=== PATIENT | female | born 1960 | race Caucasian/White ===

== ENCOUNTER 2018-07-08 17:38 | Emergency (ER) | payer OTHER ==
--- OUTSIDE RECORDS SUMMARY | 2018-07-08 17:40 | XMS REPORT ---
:1960 Author Organization eClinicalWorks Care Team Providers Name Role Phone Satish San Provider Role Unavailable Allergies No Known Allergies Problems Problem Type Condition Code Onset Dates Condition Status Problem Swelling R60.9 Active Problem Muscle tension headache G44.209 Active Problem Chronic obstructive pulmonary J44.9 Active disease (COPD) Problem Allergic rhinitis J30.9 Active Problem Osteoporosis M81.0 Active Problem Current chronic use of systemic Z79.52 Active steroids Problem Tobacco abuse counseling Z71.6 Active Problem Gastro-esophageal reflux disease K21.9 Active without esophagitis Problem Attention deficit disorder F90.9 Active Problem Hepatitis C B19.20 Active Assessment Unspecified viral hepatitis C with 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 Assessment Attention deficit disorder F90.9 Active Assessment Tobacco abuse counseling Z71.6 Active Problem Major depressive disorder, single F32.9 Active episode Assessment Rash and nonspecific skin eruption R21 Active Problem 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 Assessment Current chronic use of systemic Z79.52 Active steroids Problem Unspecified viral hepatitis C with 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 Medications Medication Code Code Instructions Start End Status Dosage System Date Date Amphetamine-Dex [facility] [place] 2] 72347362468 10 MG Orally Active 1 tablet in troamphetamine Once a day the morning and 1 tab at noon HydrOXYzine HCl [facility] [place]NOTE 2] 59290951598 50 MG Orally Active 1 tablet as every 6 hrs needed Permethrin [facility] [place] 2] 85997980298 5 % Externally Sept Oct Active 1 application Once a day , to affected 2017 2017 area Clonazepam [facility] [place]NOTE 2] [address]-47 1 MG Orally Active 1 tablet BID prn Seroquel [facility] [place]NOTE 2] 90913004160 25 MG Orally Active 1 tablet in the morning, 2 tablets at bedtime PredniSONE [facility] [place]NOTE 2] 68657001823 10 MG Orally Active 1 tablet Once a day Duloxetine HCl [facility] [place]NOTE 2] [address]-27 60 MG Orally Active 1 capsule Once a day BusPIRone HCl [facility] [place]NOTE 2] 44738472465 10 MG Orally Active 1 tablet Twice a day Fluocinonide [facility] [place] 2] 95809069451 0.05 % Active as directed Externally Nexium [facility] [place]NOTE 2] 85586567624 20 MG Orally Active 1 capsule Once a day Proventil HFA [facility] [place]NOTE 2] 26618106235 108 (90 Base) Active 2 puffs as MCG/ACT needed Inhalation every 6 hrs ibuprofen ND 83570703298 Oral Active 1 tab HydrALAZINE HCl [facility] [place]NOTE 2] 84109599118 50 MG Orally Sept Active 1 tablet with Three times a 24, food 2017 Restasis [facility] [place]NOTE 2] 26502063944 0.05 % Active 1 drop into Ophthalmic affected eye Twice a day Klonopin [facility] [place] 2] 12313691116 1 MG Orally Active 1 tablet Once a day Gabapentin [facility] [place]NOTE 2] 58012081861 300 MG Orally Active 1 capsule Three times a before day bedtime Oxycodone HCl [facility] [place]NOTE 2] 31880746383 10 MG Orally Active 1 tablet as every 6 hrs needed Tizanidine HCl [facility] [place]NOTE 2] 14447896833 4 MG Orally Active 1 tablet as once a day; needed PRN Results No Known Results Summary Purpose eClinicalWorks Submission
[2018-07-08] MEDS ORDERED: ACETAMINOPHEN 500 MG TAB ONE (18:45)
[2018-07-08] MEDS ORDERED: IBUPROFEN 200 MG TAB PO ONE (18:45)
[2018-07-08] MEDS ORDERED: IBUPROFEN 400 MG TAB ONE (18:45)
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
[2018-07-08] MEDS ORDERED: CLINDAMYCIN 900MG/D5W 900 MG/50 ML IVPB IV ONE (19:18)
[2018-07-08] MEDS ORDERED: LIDOCAINE 1% 20 ML MDV ONE (19:18)
[2018-07-08] MEDS ORDERED: CLINDAMYCIN IV 150 MG/ML (4 mL) VIAL ONE (19:50)
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
== END 2018-07-08 23:18 | disposition short-term general hospital (02) ==
LOC: ER 17:38
PROC: 0PSVXZZ Reposition Left Finger Phalanx, External Approach (ICD-10-PCS; principal; 2018-07-08)
DX: S62.617B Displaced fracture of proximal phalanx of left little finger, initial encounter for open fracture (principal); Y09 Assault by unspecified means; F41.9 Anxiety disorder, unspecified; F17.210 Nicotine dependence, cigarettes, uncomplicated
CPT/HCPCS: 90471; 96372; 99285; S0077

== ENCOUNTER 2019-02-18 20:36 | Emergency (ER) | payer OTHER ==
--- OUTSIDE RECORDS SUMMARY | 2019-02-18 20:38 | XMS REPORT ---
[...] End Status Dosage System Date Date Amphetamine-Dex [facility] 86404239551 10 MG Orally Active 1 tablet in troamphetamine Once a day the morning and 1 tab at noon HydrOXYzine HCl [facility] 37692110112 50 MG Orally Active 1 tablet as every 6 hrs needed Permethrin [facility] 13801593772 5 % Externally Sept Oct Active 1 application Once a day , to affected 2017 2017 area Clonazepam [facility] [address]-58 1 MG Orally Active 1 tablet BID prn Seroquel [facility] 51533909711 25 MG Orally Active 1 tablet in the morning, 2 tablets at bedtime PredniSONE [facility] 24241303991 10 MG Orally Active 1 tablet Once a day Duloxetine HCl [facility] [address]-43 60 MG Orally Active 1 capsule Once a day BusPIRone HCl [facility] 64815695219 10 MG Orally Active 1 tablet Twice a day Fluocinonide [facility] 38918268601 0.05 % Active as directed Externally Nexium [facility] 43545684373 20 MG Orally Active 1 capsule Once a day Proventil HFA [facility] 32864034485 108 (90 Base) Active 2 puffs as MCG/ACT needed Inhalation every 6 hrs ibuprofen ND 09335304138 Oral Active 1 tab HydrALAZINE HCl [facility] 90624472424 50 MG Orally Sept Active 1 tablet with Three times a 24, food 2017 Restasis [facility] 69349479363 0.05 % Active 1 drop into Ophthalmic affected eye Twice a day Klonopin [facility] 37720447510 1 MG Orally Active 1 tablet Once a day Gabapentin [facility] 20934631043 300 MG Orally Active 1 capsule Three times a before day bedtime Oxycodone HCl [facility] 40577876871 10 MG Orally Active 1 tablet as every 6 hrs needed Tizanidine HCl [facility] 05528547389 4 MG Orally Active 1 tablet as once a day; needed PRN Results No Known Results Summary Purpose eClinicalWorks Submission
--- OUTSIDE RECORDS SUMMARY | 2019-02-18 20:39 | XMS REPORT | Encounter Summary ---
:1960 Author Reason for Visit Psychiatric Follow Up Instructions 1. Moderate recurrent major depression buspirone 15 mg tablet quetiapine 50 mg tablet 2. Panic disorder with agoraphobia clonazepam 1 mg tablet 3. Attention deficit hyperactivity disorder Discussion Note Advised to call if any problems or issues. Patient educational handouts: No information available. Plan of Care Patient Instructions Continue current treatment. RTC 3-months or sooner if necessary. Increase Seroquel to 50mg BID. Reminders Provider Appointments Est on or around [facility] 04/07/2019 Ozzy Baird MD Lab None recorded. Referral None recorded. Procedures None recorded. Surgeries None recorded. Imaging None recorded. Medications Name Start Date acetaminophen 300 mg-codeine 30 mg tablet albuterol sulfate 2.5 mg/3 mL (0.083 %) solution for nebulization Inhale 3 mL 3 times a day by nebulization route. amlodipine 5 mg tablet azithromycin 500 mg tablet buspirone 15 mg tablet Take 1 tablet 3 times a day by oral route. clindamycin HCl 300 mg capsule clobetasol 0.05 % topical cream clonazepam 1 mg tablet TAKE 1 TABLET BY MOUTH THREE TIMES DAILY NEEDED FOR ANXIETY Combivent Respimat 20 mcg-100 mcg/actuation solution for inhalation cyclobenzaprine 10 mg tablet dextroamphetamine-amphetamine 20 mg tablet Take 1 tablet(s) twice a day by oral route. doxycycline monohydrate 50 mg capsule Flucelvax Quad 4591-5122 60 mcg (15 mcg x 4)/0.5 mL intramuscular susp fluocinonide 0.05 % topical cream gabapentin 300 mg capsule Take 1 capsule every day by oral route for 30 days. GaviLyte-G 236 gram-22.74 gram-6.74 gram-5.86 gram oral solution hydrocodone 5 mg-acetaminophen 325 mg tablet hydrocortisone 1 % topical cream hydroxyzine HCl 25 mg tablet Take 1 tablet 3 times a day by oral route. ibuprofen 800 mg tablet Invega 3 mg tablet,extended release ivermectin 3 mg tablet Take 5 tablets every 72 hours by oral route. ketorolac 10 mg tablet lamotrigine 25 mg tablet lidocaine-prilocaine 2.5 %-2.5 % topical cream metoprolol succinate ER 25 mg tablet,extended release 24 hr metronidazole 500 mg tablet mupirocin 2 % topical ointment Nexium 20 mg capsule,delayed release Take 1 capsule every day by oral route for 30 days. nystatin 100,000 unit/gram topical cream pantoprazole 40 mg tablet,delayed release prednisone 10 mg tablet ProAir HFA 90 mcg/actuation aerosol inhaler quetiapine 100 mg tablet quetiapine 25 mg tablet 1 po qam 2 po qhs quetiapine 50 mg tablet Take 1 tablet twice a day by oral route. sertraline 100 mg tablet Take 1 tablet every day by oral route in the morning. sertraline 50 mg tablet sulfamethoxazole 800 mg-trimethoprim 160 mg tablet Symbicort 80 mcg-4.5 mcg/actuation HFA aerosol inhaler terbinafine HCl 250 mg tablet Medications Administered None recorded. Vitals None recorded. Results Lab Results None recorded. Allergies Code Code System Name Reaction Severity Status Onset 9230 RxNorm Reglan Other Severe Active Problems Name Status Onset Date Source Crusted Scabies Active 03/14/2018 Chronic Obstructive Lung Disease Active 03/14/2018 Moderate Recurrent Major Depression Active Panic Disorder with Agoraphobia Active Attention Deficit Hyperactivity Disorder Active Procedures None recorded. Vaccine List None recorded. Social History Tobacco Smoking Status Former Smoker Past Encounters 01/05/2019 Moderate Recurrent Major Depression; Panic Disorder with Agoraphobia; Attention Deficit Hyperactivity Disorder Yovany Baird MD: [address] [address], Ph. [phone] History of Present Illness Psych Medication Management Reported By: Patient HPI: Medications: taking medications as directed, no side effects from medication. General overall feeling: feeling as well as can be expected Psychiatric General Follow-Up Reported By: Patient HPI: Context: relationship stress, poor family dynamics Associated Symptoms: Mood: no sadness. Anxiety: no generalized worry. Sleep: no insomnia. Appetite: no change Prior Treatment and Review:: Medication Compliance: greater than 90% Note: <p>Here for routine med. check. Coming from [place]. Went there to see her mother who fell. Reports doing okay. Still living in [place]. Daughter lives with her family and grandson is doing good. Daughter is "at a standstill." Compliant with meds but weaned self off Zoloft. No AE. Sleep fair, appetite okay. E/C fair. Mood has been okay. No new health issues. Home life remains unchanged. Denies ETOH/drugs. No new legal issues.</p> Review of Systems None recorded. Physical Exam Mental Status Exam Reported By: Patient Mental Status Exam: Appearance: well-groomed, clean. Behavior: eye contact, cooperative. Speech: clear. Perception: no hallucinations. Cognition: alert, oriented to situation, oriented to time, oriented to place, oriented to person, memory intact. Intelligence: average. Memory: remote, recent. Mood: euthymic. Affect: congruent to thought content. Insight: intact. Judgment: intact. Thought Processes: intact. Thought Content: unremarkable
--- OUTSIDE RECORDS SUMMARY | 2019-02-18 20:39 | XMS REPORT ---
:1960 [facility] Address [address] [place] [address] Care Team Providers Name Role Phone KATYA ALTAMIRANO Unavailable Unavailable Problems This patient has no known problems. Allergies, Adverse Reactions, Alerts This patient has no known allergies or adverse reactions. Medications This patient has no known medications. Results Test Description Test Time Test Comments Text Results Atomic Results Result Comments MAYRA GRAY, 3 2018-08-03 Reason for FINAL REPORT VIEWS, LEFT 19:03:00 exam:->eval TECHNIQUE: Three views of the left post-op frx w/ hand. INDICATION: eval post-op frx w/ pin pin. COMPARISON: Radiograph from 07/09/2018. FINDINGS/IMPRESSION:Percutaneous pins in the proximal portion of the proximal phalanx of the small finger with slight apex palmar angulation. No significant callus formation. Mild osteophytosis of the carpometacarpal joint of the thumb, consistent with moderate degenerative change. Signed: Enoc Nunez MDReport Verified Date/Time: 08/03/2018 19:03:56 Reading Location: [facility] C013Y CT Body Reading Room AAC IN 2018-07-17 Reason for PROCEDURE PERFORMED IN O.R. - PLEASE OR/30 MINUTE 18:30:00 exam:->ORIF Left REFER TO THE INTRAOPERATIVE REPORT. INCREMENTS little finger ESIUM 2018-07-10 07:39:00 Test Item Value Reference Range Comments MAGNESIUM (BEAKER) (test hswm=512) 2.2 mg/dL 1.6-2.6 Specimen slightly hemolyzed [id number] 07:39:00 Test Item Value Reference Range Comments PHOSPHORUS (BEAKER) (test 4.1 mg/dL 2.3-4.7 Specimen slightly hemolyzed dexz=024) BASIC METABOLIC [id number] 07:39:00 Test Item Value Reference Range Comments SODIUM (BEAKER) (test 139 meq/L 136-145 veam=509) POTASSIUM (BEAKER) (test 4.1 meq/L 3.5-5.1 Specimen slightly hvpb=735) hemolyzed CHLORIDE (BEAKER) (test 106 meq/L 98-107 jxcj=312) CO2 (BEAKER) (test 27 meq/L 22-29 nsur=722) BLOOD UREA NITROGEN 15 mg/dL 7-21 (BEAKER) (test lkiu=511) CREATININE (BEAKER) (test 0.83 mg/dL 0.57-1.25 Specimen slightly vaec=228) hemolyzed GLUCOSE RANDOM (BEAKER) 83 mg/dL 70-105 (test oqts=056) CALCIUM (BEAKER) (test 8.5 mg/dL 8.4-10.2 vxse=421) EGFR (BEAKER) (test 71 mL/min/1.73 sq m ESTIMATED GFR IS NOT rggs=5168) ACCURATE CREATININE CLEARANCE IN PREDICTING GLOMERULAR FILTRATION RATE. ESTIMATED GFR IS NOT APPLICABLE FOR DIALYSIS PATIENTS. RAD, HAND, 3 VIEWS, [id number] 12:58:00Reason for exam:->left finger fractureFINAL REPORT Left hand. MEDICAL HISTORY: Left finger fracture. COMPARISON STUDY: None available. FINDINGS: Five views of the left hand demonstrate a comminuted prominently horizontally oriented fracture of the proximal metaphysis of the fifth proximal phalanx. Some apex volar angulation is noted. No other sites of fracture are seen. Degenerative changes are present. Signed: Rl [place] Verified Date/Time: 07/09/2018 12 :58:27 Reading Location: [address] ConsultReading Room [id number] 04:31 :00 Test Item Value Reference Range Comments PHOSPHORUS (BEAKER) (test eptw=669) 3.8 mg/dL 2.3-4.7 [id number] 04:31:00 Test Item Value Reference Range Comments MAGNESIUM (BEAKER) (test sprb=381) 2.4 mg/dL 1.6-2.6 BASIC METABOLIC [id number] 04:31:00 Test Item Value Reference Range Comments SODIUM (BEAKER) (test 139 meq/L 136-145 yxno=483) POTASSIUM (BEAKER) (test 3.3 meq/L 3.5-5.1 nrlu=700) CHLORIDE (BEAKER) (test 104 meq/L 98-107 lbei=130) CO2 (BEAKER) (test 27 meq/L 22-29 zckf=253) BLOOD UREA NITROGEN 18 mg/dL 7-21 (BEAKER) (test tnqi=156) CREATININE (BEAKER) (test 0.82 mg/dL 0.57-1.25 zaln=111) GLUCOSE RANDOM (BEAKER) 113 mg/dL 70-105 (test emvz=014) CALCIUM (BEAKER) (test 8.8 mg/dL 8.4-10.2 glpy=911) EGFR (BEAKER) (test 72 mL/min/1.73 sq m ESTIMATED GFR IS NOT ihel=6772) ACCURATE CREATININE CLEARANCE IN PREDICTING GLOMERULAR FILTRATION RATE. ESTIMATED GFR IS NOT APPLICABLE FOR DIALYSIS PATIENTS. CBC W/PLT COUNT & AUTO [id number] 04:05:00 Test Item Value Reference Range Comments WHITE BLOOD CELL COUNT (BEAKER) (test wxsm=247) 6.8 K/ L 3.5-10.5 RED BLOOD CELL COUNT (BEAKER) (test zjeu=017) 3.99 M/ L 3.93-5.22 HEMOGLOBIN (BEAKER) (test iqkk=833) 12.5 GM/DL 11.2-15.7 HEMATOCRIT (BEAKER) (test zfxi=889) 37.1 % 34.1-44.9 MEAN CORPUSCULAR VOLUME (BEAKER) (test pqkq=400) 93.0 fL 79.4-94.8 MEAN CORPUSCULAR HEMOGLOBIN (BEAKER) (test 31.3 pg 25.6-32.2 tths=994) MEAN CORPUSCULAR HEMOGLOBIN CONC (BEAKER) (test 33.7 GM/DL 32.2-35.5 tyjk=358) RED CELL DISTRIBUTION WIDTH (BEAKER) (test 12.6 % 11.7-14.4 ipjh=116) PLATELET COUNT (BEAKER) (test dxwq=782) 198 K/CU MM 150-450 MEAN PLATELET VOLUME (BEAKER) (test yguf=309) 10.9 fL 9.4-12.3 NUCLEATED RED BLOOD CELLS (BEAKER) (test 0 /100 WBC 0-0 nfww=410) NEUTROPHILS RELATIVE PERCENT (BEAKER) (test 42 % gqhx=098) LYMPHOCYTES RELATIVE PERCENT (BEAKER) (test 43 % zbgm=811) MONOCYTES RELATIVE PERCENT (BEAKER) (test 8 % zsqc=132) EOSINOPHILS RELATIVE PERCENT (BEAKER) (test 7 % xkrh=582) BASOPHILS RELATIVE PERCENT (BEAKER) (test 1 % ykci=523) NEUTROPHILS ABSOLUTE COUNT (BEAKER) (test 2.82 K/ L 1.56-6.13 khve=516) LYMPHOCYTES ABSOLUTE COUNT (BEAKER) (test 2.90 K/ L 1.18-3.74 agns=556) MONOCYTES ABSOLUTE COUNT (BEAKER) (test 0.56 K/ L 0.24-0.36 dync=653) EOSINOPHILS ABSOLUTE COUNT (BEAKER) (test 0.44 K/ L 0.04-0.36 ohip=169) BASOPHILS ABSOLUTE COUNT (BEAKER) (test 0.04 K/ L 0.01-0.08 vtmy=537) IMMATURE GRANULOCYTES-RELATIVE PERCENT (BEAKER) 0 % 0-1 (test gkrz=3439)
[2019-02-18] MEDS ORDERED: AZITHROMYCIN 250 MG TAB ONE (22:01)
[2019-02-18] MEDS ORDERED: KETOROLAC 30 MG/ML INJ ONE (22:01)
--- NOTE | 2019-02-18 22:22 | EDPHYS ---
Physician Documentation [facility] Name: Lilian Quinteros Age: 58 yrs Sex: Female : 1960 Arrival Date: 02/18/2019 Time: 20:38 Bed 20 Private MD: ED Physician Ronald Alvarez HPI: 02/19 02:23 This 58 yrs old Female presents to ER via Ambulatory with complaints of Flu snw Symptoms. 02:24 The patient reports fever, that was measured at 102 degrees Fahrenheit. Onset: The snw symptoms/episode began/occurred suddenly, this morning. Modifying factors: there are no obvious modifying factors. Associated signs and symptoms: Pertinent positives: chills, cough, decreased appetite, headache. Severity of symptoms: At their worst the symptoms were moderate in the emergency department the symptoms are unchanged. The patient has not experienced similar symptoms in the past. It is unknown whether or not the patient has recently seen a physician. Historical: - Allergies: 02/18 20:45 Reglan; iw - PMHx: 20:45 Anxiety; Pancreatitis; psychogenic parasitosis; iw - PSHx: 20:45 finger; iw - Immunization history:: Adult Immunizations Adult Immunizations up to date. - Social history:: Smoking status: Patient uses tobacco products, denies chronic smoking, but will smoke occasionally. - Ebola Screening: : Patient negative for fever greater than or equal to 101.5 degrees Fahrenheit, and additional compatible Ebola Virus Disease symptoms Patient denies exposure to infectious person Patient denies travel to an Ebola-affected area in the 21 days before illness onset No symptoms or risks identified at this time. ROS: 02/19 02:20 Constitutional: Positive for chills and fever, negative for weight loss, Eyes: Negative snw for injury, pain, redness, and discharge, ENT: Negative for injury, pain, and discharge, Neck: Negative for injury, pain, and swelling, Cardiovascular: Negative for chest pain, palpitations, and edema, Respiratory: Negative for shortness of breath, wheezing, and pleuritic chest pain, +cough Abdomen/GI: Negative for abdominal pain, nausea, vomiting, diarrhea, and constipation, Back: Negative for injury and pain, MS/Extremity: Negative for injury and deformity, Skin: Negative for injury, rash, and discoloration. Neuro: Positive for headache. Exam: 02:12 Head/Face: Normocephalic, atraumatic. Eyes: Pupils equal round and reactive to light, snw extra-ocular motions intact. Lids and lashes normal. Conjunctiva and sclera are non-icteric and not injected. Cornea within normal limits. Periorbital areas with no swelling, redness, or edema. ENT: Nares patent. No nasal discharge, no septal abnormalities noted. Tympanic membranes are normal and external auditory canals are clear. Oropharynx with no redness, swelling, or masses, exudates, or evidence of obstruction, uvula midline. Mucous membranes moist. Neck: Trachea midline, no thyromegaly or masses palpated, and no cervical lymphadenopathy. Supple, full range of motion without nuchal rigidity, or vertebral point tenderness. No Meningismus. Chest/axilla: Normal chest wall appearance and motion. Nontender with no deformity. No lesions are appreciated. Cardiovascular: Regular rate and rhythm with a normal S1 and S2. No gallops, murmurs, or rubs. Normal PMI, no JVD. No pulse deficits. 02:12 Abdomen/GI: Soft, non-tender, with normal bowel sounds. No distension or tympany. No guarding or rebound. No evidence of tenderness throughout. Back: No spinal tenderness. No costovertebral tenderness. Full range of motion. Skin: Warm, dry with normal turgor. Normal color with no rashes, no lesions, and no evidence of cellulitis. Neuro: Awake and alert, GCS 15, oriented to person, place, time, and situation. Cranial nerves II-XII grossly intact. Motor strength 5/5 in all extremities. Sensory grossly intact. Cerebellar exam normal. Normal gait. 02:12 Constitutional: The patient appears alert, awake, uncomfortable. 02:12 Respiratory: the patient does not display signs of respiratory distress, Respirations: normal, Breath sounds: + upper airway congestion. 02:12 Musculoskeletal/extremity: ROM: no acute changes, Circulation is intact in all extremities. myalgias, bodyaches. Vital Signs: 02/18 20:45 BP 117 / 76; Pulse 92; Resp 16; Temp 98.4; Pulse Ox 96% on R/A; Weight 65.77 kg; Height iw 5 ft. 7 in. (170.18 cm); Pain 8/10; 21:50 BP 112 / 74 Supine; Pulse 80; wh 21:51 BP 116 / 81 Sitting; Pulse 83; wh 21:51 BP 117 / 80 Standing; Pulse 86; wh 22:45 BP 133 / 82; Pulse 79; Resp 18; Pulse Ox 99% on R/A; wh 20:45 Body Mass Index 22.71 (65.77 kg, 170.18 cm) iw MDM: 21:49 Patient medically screened. snw 02/19 02:18 Data reviewed: vital signs, nurses notes. Data interpreted: Pulse oximetry: on room air snw is 99 %. Interpretation: normal. Counseling: I had a detailed discussion with the patient and/or guardian regarding: the historical points, exam findings, and any diagnostic results supporting the discharge/admit diagnosis, the presence of at least one elevated blood pressure reading (>120/80) during this emergency department visit, lab results, the need for outpatient follow up, for definitive care, to return to the emergency department if symptoms worsen or persist or if there are any questions or concerns that arise at home. Special discussion: I have referred the patient to see his PCP for further evaluation of high blood pressure. Based on the history and exam findings, there is no indication for further emergent testing or inpatient evaluation. I discussed with the patient/guardian the need to see the primary care provider for further evaluation of the symptoms. 02/18 21:05 Order name: Flu; Complete Time: 21:29 wh 12 21:05 Order name: Strep; Complete Time: 21:29 12 21:29 Order name: Orthostatics; Complete Time: 21:50 snw 02/18 21:34 Order name: Throat Culture EDMS Administered Medications: 02/18 22:02 Drug: Zithromax 500 mg Route: PO; 22:51 Follow up: Response: No adverse reaction 22:05 Drug: TORadol 30 mg Route: IM; Site: right gluteus; 22:52 Follow up: Response: No adverse reaction; Pain is decreased Disposition: 02/19 04:28 Co-signature as Attending Physician, Ronald Alvarez MD I agree with the assessment and tw4 plan of care. Disposition: 02/18/19 22:21 Discharged to Home. Impression: Acute upper respiratory infection, unspecified. - Condition is Stable. - Discharge Instructions: Upper Respiratory Infection, Adult, Cool Mist Vaporizer, Rehydration, Adult. - Prescriptions for Tessalon Perles 100 mg Oral Capsule - take 1 capsule by ORAL route every 8 hours As needed; 15 capsule. Zithromax Z- Artem 250 mg Oral Tablet - take 1 tablet by ORAL route as directed for 5 days Day 1 - take two (2) tablets one time. Day 2, 3, 4 , 5 take one (1) tablet once daily.; 6 tablet. - Work release form, Medication Reconciliation Form, Thank You Letter, Antibiotic Education, Prescription Opioid Use form. - Follow up: Private Physician; When: 2 - 3 days; Reason: Recheck today's complaints, Continuance of care, Re-evaluation by your physician. Follow up: Emergency Department; When: As needed; Reason: Worsening of condition. Signatures: Dispatcher [employer] EDMS Dasha Nelson, LISETTE-C X RAY EQUIPMENT TESTER-Csnw Kalani Felder, JAE RN Tom Carrasco Terrence, MD MD tw4 Corrections: (The following items were deleted from the chart) 02/18 22:52 22:21 02/18/2019 22:21 Discharged to Home. Impression: Acute upper respiratory wh infection, unspecified. Condition is Stable. Forms are Medication Reconciliation Form, Thank You Letter, Antibiotic Education, Prescription Opioid Use. Follow up: Private Physician; When: 2 - 3 days; Reason: Recheck today's complaints, Continuance of care, Re-evaluation by your physician. Follow up: Emergency Department; When: As needed; Reason: Worsening of condition. snw
--- NOTE | 2019-02-18 22:22 | ER ---
Nurse's Notes [facility] Name: Liilan Quinteros Age: 58 yrs Sex: Female : 1960 Arrival Date: 02/18/2019 Time: 20:38 Bed 20 Private MD: Diagnosis: Acute upper respiratory infection, unspecified Presentation: 02/18 20:43 Presenting complaint: Patient states: body aches, fever/chills since 4 am, +nausea, iw +dizziness, last Tylenol at 7pm, +headache, also c/o pain to upper abd area. Transition of care: patient was not received from another setting of care. Onset of symptoms was February 18, 2019. Risk Assessment: Do you want to hurt yourself or someone else? Patient reports no desire to harm self or others. Initial Sepsis Screen: Does the patient meet any 2 criteria? No. Patient's initial sepsis screen is negative. Does the patient have a suspected source of infection? No. Patient's initial sepsis screen is negative. Care prior to arrival: Medication(s) given: Tylenol. 20:43 Method Of Arrival: Ambulatory iw 20:43 Acuity: SUZANNE 3 iw Historical: - Allergies: 20:45 Reglan; iw - PMHx: 20:45 Anxiety; Pancreatitis; psychogenic parasitosis; iw - PSHx: 20:45 finger; iw - Immunization history:: Adult Immunizations Adult Immunizations up to date. - Social history:: Smoking status: Patient uses tobacco products, denies chronic smoking, but will smoke occasionally. - Ebola Screening: : Patient negative for fever greater than or equal to 101.5 degrees Fahrenheit, and additional compatible Ebola Virus Disease symptoms Patient denies exposure to infectious person Patient denies travel to an Ebola-affected area in the 21 days before illness onset No symptoms or risks identified at this time. Screenin:06 Abuse screen: Denies threats or abuse. Denies injuries from another. Nutritional wh screening: No deficits noted. Tuberculosis screening: No symptoms or risk factors identified. Fall Risk None identified. Assessment: 21:04 General: Appears in no apparent distress. Behavior is calm, cooperative, appropriate wh for age. Pain: Denies pain. Neuro: Level of Consciousness is awake, alert, obeys commands, Oriented to person, place, time, situation, Appropriate for age. Neuro: Reports headache from coughing. Cardiovascular: Respiratory: Reports cough that is Airway is patent Respiratory effort is even, unlabored, Respiratory pattern is regular, symmetrical, Breath sounds are clear bilaterally. GI: Abdomen is flat, non-distended. : No signs and/or symptoms were reported regarding the genitourinary system. EENT: Throat is pink. Derm: Skin is intact, is healthy with good turgor, Skin is pink, warm \T\ dry. normal. Musculoskeletal: Circulation, motion, and sensation intact. 21:50 Reassessment: Patient appears in no apparent distress at this time. No changes from previously documented assessment. Patient and/or family updated on plan of care and expected duration. Pain level reassessed. Patient is alert, oriented x 3, equal unlabored respirations, skin warm/dry/pink. 22:50 Reassessment: Patient appears in no apparent distress at this time. No changes from previously documented assessment. Patient and/or family updated on plan of care and expected duration. Pain level reassessed. Patient is alert, oriented x 3, equal unlabored respirations, skin warm/dry/pink. Patient states feeling better. Patient states symptoms have improved. Vital Signs: 20:45 BP 117 / 76; Pulse 92; Resp 16; Temp 98.4; Pulse Ox 96% on R/A; Weight 65.77 kg; Height iw 5 ft. 7 in. (170.18 cm); Pain 8/10; 21:50 BP 112 / 74 Supine; Pulse 80; wh 21:51 BP 116 / 81 Sitting; Pulse 83; wh 21:51 BP 117 / 80 Standing; Pulse 86; wh 22:45 BP 133 / 82; Pulse 79; Resp 18; Pulse Ox 99% on R/A; wh 20:45 Body Mass Index 22.71 (65.77 kg, 170.18 cm) iw ED Course: 20:38 Patient arrived in ED. ag3 20:44 Triage completed. iw 20:45 Arm band placed on. iw 20:48 Tom Colón is Primary Nurse. wh 21:06 Patient has correct armband on for positive identification. Bed in low position. Call light in reach. Side rails up X 1. Pulse ox on. NIBP on. 21:29 Dasha Nelson FNP-C is PHCP. snw 21:29 Ronald Alvarez MD is Attending Physician. [facility] 22:50 No provider procedures requiring assistance completed. Patient did not have IV access during this emergency room visit. Administered Medications: 22:02 Drug: Zithromax 500 mg Route: PO; 22:51 Follow up: Response: No adverse reaction 22:05 Drug: TORadol 30 mg Route: IM; Site: right gluteus; 22:52 Follow up: Response: No adverse reaction; Pain is decreased Outcome: 22:21 Discharge ordered by . [facility] 22:50 Discharged to home ambulatory, with family. 22:50 Condition: stable 22:50 Discharge instructions given to patient, family, Instructed on discharge instructions, follow up and referral plans. medication usage, POC URTI Demonstrated understanding of instructions, follow-up care, medications, POC Prescriptions given X 2. 22:52 Patient left the ED. Signatures: Dasha Nelson, DYE TUB TENDER-C DYE TUB TENDER-Csnw Kalani Felder RN RN iw [place], Winsy Mariann Brito3
[2019-02-18 23:34] VITALS: TEMP 98.4
[2019-02-18 23:39] VITALS: BP 133/82; O2SAT 99
== END 2019-02-18 22:52 | disposition home or self-care (01) ==
LOC: ER 20:36
DX: J06.9 Acute upper respiratory infection, unspecified (principal); Z88.8 Allergy status to other drugs, medicaments and biological substances; Z72.0 Tobacco use
CPT/HCPCS: 87070; 87081; 87804; 96372; 99283

== ENCOUNTER 2019-04-15 01:21 | Emergency (ER) | payer OTHER ==
--- OUTSIDE RECORDS SUMMARY | 2019-04-15 01:23 | XMS REPORT ---
:1960 [facility] Address [address] [place] [address] Care Team Providers Name Role Phone KATYA ALTAMIRANO Unavailable Unavailable Problems This patient has no known problems. Allergies, Adverse Reactions, Alerts This patient has no known allergies or adverse reactions. Medications This patient has no known medications. Results Test Description Test Time Test Comments Text Results Atomic Results Result Comments MAYRA RGAY, 3 2018-08-03 Reason for FINAL REPORT VIEWS, [...] MDReport Verified Date/Time: 08/03/2018 19:03:56 Reading Location: [facility] C013Y CT Body Reading Room , HYDRAULIC TESTER IN 2018-07-17 Reason for PROCEDURE PERFORMED IN O.R. - PLEASE OR/30 MINUTE 18:30:00 exam:->ORIF Left REFER TO THE INTRAOPERATIVE REPORT. INCREMENTS little finger ESIUM 2018-07-10 07:39:00 Test Item Value Reference Range Comments MAGNESIUM (BEAKER) (test ctmd=244) 2.2 mg/dL 1.6-2.6 Specimen slightly hemolyzed [id number] 07:39:00 Test Item Value Reference Range Comments PHOSPHORUS (BEAKER) (test 4.1 mg/dL 2.3-4.7 Specimen slightly hemolyzed caia=847) BASIC METABOLIC [id number] 07:39:00 Test Item Value Reference Range Comments SODIUM (BEAKER) (test 139 meq/L 136-145 hine=554) POTASSIUM (BEAKER) (test 4.1 meq/L 3.5-5.1 Specimen slightly izuq=525) hemolyzed CHLORIDE (BEAKER) (test 106 meq/L 98-107 cgpv=926) CO2 (BEAKER) (test 27 meq/L 22-29 lrio=402) BLOOD UREA NITROGEN 15 mg/dL 7-21 (BEAKER) (test pyos=738) CREATININE (BEAKER) (test 0.83 mg/dL 0.57-1.25 Specimen slightly vtqb=270) hemolyzed GLUCOSE RANDOM (BEAKER) 83 mg/dL 70-105 (test zkgb=442) CALCIUM (BEAKER) (test 8.5 mg/dL 8.4-10.2 lobh=551) EGFR (BEAKER) (test 71 mL/min/1.73 sq m ESTIMATED GFR IS NOT wuha=2263) ACCURATE CREATININE CLEARANCE IN PREDICTING GLOMERULAR FILTRATION RATE. ESTIMATED GFR IS NOT APPLICABLE FOR DIALYSIS PATIENTS. RAD, HAND, 3 VIEWS, [id number] 12:58:00Reason for exam:->left finger fractureFINAL REPORT Left [...] Verified Date/Time: 07/09/2018 12 :58:27 Reading Location: [address] ConsultReading Room [id number] 04:31 :00 Test Item Value Reference Range Comments PHOSPHORUS (BEAKER) (test mzei=873) 3.8 mg/dL 2.3-4.7 [id number] 04:31:00 Test Item Value Reference Range Comments MAGNESIUM (BEAKER) (test uiit=123) 2.4 mg/dL 1.6-2.6 BASIC METABOLIC [id number] 04:31:00 Test Item Value Reference Range Comments SODIUM (BEAKER) (test 139 meq/L 136-145 oadq=710) POTASSIUM (BEAKER) (test 3.3 meq/L 3.5-5.1 aqzz=654) CHLORIDE (BEAKER) (test 104 meq/L 98-107 ndfw=928) CO2 (BEAKER) (test 27 meq/L 22-29 jlvn=232) BLOOD UREA NITROGEN 18 mg/dL 7-21 (BEAKER) (test oepy=044) CREATININE (BEAKER) (test 0.82 mg/dL 0.57-1.25 qaql=019) GLUCOSE RANDOM (BEAKER) 113 mg/dL 70-105 (test xyah=825) CALCIUM (BEAKER) (test 8.8 mg/dL 8.4-10.2 hnxn=976) EGFR (BEAKER) (test 72 mL/min/1.73 sq m ESTIMATED GFR IS NOT bnsj=8770) ACCURATE CREATININE CLEARANCE IN PREDICTING GLOMERULAR FILTRATION RATE. ESTIMATED GFR IS NOT APPLICABLE FOR DIALYSIS PATIENTS. CBC W/PLT COUNT & AUTO [id number] 04:05:00 Test Item Value Reference Range Comments WHITE BLOOD CELL COUNT (BEAKER) (test elut=128) 6.8 K/ L 3.5-10.5 RED BLOOD CELL COUNT (BEAKER) (test ivwc=139) 3.99 M/ L 3.93-5.22 HEMOGLOBIN (BEAKER) (test mqev=402) 12.5 GM/DL 11.2-15.7 HEMATOCRIT (BEAKER) (test fldp=396) 37.1 % 34.1-44.9 MEAN CORPUSCULAR VOLUME (BEAKER) (test etbz=564) 93.0 fL 79.4-94.8 MEAN CORPUSCULAR HEMOGLOBIN (BEAKER) (test 31.3 pg 25.6-32.2 treh=191) MEAN CORPUSCULAR HEMOGLOBIN CONC (BEAKER) (test 33.7 GM/DL 32.2-35.5 zjim=982) RED CELL DISTRIBUTION WIDTH (BEAKER) (test 12.6 % 11.7-14.4 dkfh=571) PLATELET COUNT (BEAKER) (test xqtu=142) 198 K/CU MM 150-450 MEAN PLATELET VOLUME (BEAKER) (test fonm=850) 10.9 fL 9.4-12.3 NUCLEATED RED BLOOD CELLS (BEAKER) (test 0 /100 WBC 0-0 bkvz=814) NEUTROPHILS RELATIVE PERCENT (BEAKER) (test 42 % pjwp=719) LYMPHOCYTES RELATIVE PERCENT (BEAKER) (test 43 % ebcm=758) MONOCYTES RELATIVE PERCENT (BEAKER) (test 8 % bziv=520) EOSINOPHILS RELATIVE PERCENT (BEAKER) (test 7 % yoil=959) BASOPHILS RELATIVE PERCENT (BEAKER) (test 1 % txpv=687) NEUTROPHILS ABSOLUTE COUNT (BEAKER) (test 2.82 K/ L 1.56-6.13 jwkk=627) LYMPHOCYTES ABSOLUTE COUNT (BEAKER) (test 2.90 K/ L 1.18-3.74 milv=510) MONOCYTES ABSOLUTE COUNT (BEAKER) (test 0.56 K/ L 0.24-0.36 tycu=721) EOSINOPHILS ABSOLUTE COUNT (BEAKER) (test 0.44 K/ L 0.04-0.36 alrs=231) BASOPHILS ABSOLUTE COUNT (BEAKER) (test 0.04 K/ L 0.01-0.08 xxyl=219) IMMATURE GRANULOCYTES-RELATIVE PERCENT (BEAKER) 0 % 0-1 (test dzxn=0707)
--- OUTSIDE RECORDS SUMMARY | 2019-04-15 01:23 | XMS REPORT ---
[...] End Status Dosage System Date Date Amphetamine-Dex [facility] 68106172756 10 MG Orally Active 1 tablet in troamphetamine Once a day the morning and 1 tab at noon HydrOXYzine HCl [facility] 98853886102 50 MG Orally Active 1 tablet as every 6 hrs needed Permethrin [facility] 44771668698 5 % Externally Sept Oct Active 1 application Once a day , to affected 2017 2017 area Clonazepam [facility] [address]-97 1 MG Orally Active 1 tablet BID prn Seroquel [facility] 52884938449 25 MG Orally Active 1 tablet in the morning, 2 tablets at bedtime PredniSONE [facility] 44829789085 10 MG Orally Active 1 tablet Once a day Duloxetine HCl [facility] [address]-31 60 MG Orally Active 1 capsule Once a day BusPIRone HCl [facility] 84907158442 10 MG Orally Active 1 tablet Twice a day Fluocinonide [facility] 43417091382 0.05 % Active as directed Externally Nexium [facility] 43060716898 20 MG Orally Active 1 capsule Once a day Proventil HFA [facility] 84000058826 108 (90 Base) Active 2 puffs as MCG/ACT needed Inhalation every 6 hrs ibuprofen ND 38864041960 Oral Active 1 tab HydrALAZINE HCl [facility] 00357015032 50 MG Orally Sept Active 1 tablet with Three times a 24, food 2017 Restasis [facility] 69476180877 0.05 % Active 1 drop into Ophthalmic affected eye Twice a day Klonopin [facility] 03982885293 1 MG Orally Active 1 tablet Once a day Gabapentin [facility] 51928770216 300 MG Orally Active 1 capsule Three times a before day bedtime Oxycodone HCl [facility] 38349277540 10 MG Orally Active 1 tablet as every 6 hrs needed Tizanidine HCl [facility] 22089177067 4 MG Orally Active 1 tablet as once a day; needed PRN Results No Known Results Summary Purpose eClinicalWorks Submission
--- OUTSIDE RECORDS SUMMARY | 2019-04-15 01:24 | XMS REPORT | Encounter Summary ---
:1960 Author Reason for Visit Psychiatric Follow Up Instructions 1. Attention deficit hyperactivity disorder dextroamphetamine-amphetamine 20 mg tablet 2. Moderate recurrent major depression buspirone 15 mg tablet quetiapine 50 mg tablet Effexor XR 75 mg capsule,extended release 3. Panic disorder with agoraphobia clonazepam 1 mg tablet Discussion Note Advised to call if any problems or issues. Patient educational handouts: No information available. Plan of Care Patient Instructions Continue current treatment. Trial of Effexor-XR 75mg. Her mother has taken it successfully. RTC 3-months or sooner if necessary. Reminders Provider Appointments Est on or around [facility] 07/05/2019 Ozzy Baird MD Lab None recorded. Referral None recorded. Procedures None recorded. Surgeries None recorded. Imaging None recorded. Medications Name Start Date amlodipine 5 mg tablet azithromycin 250 mg tablet benzonatate 100 mg capsule buspirone 15 mg tablet Take 1 tablet 3 times a day by oral route. cholestyramine (with sugar) 4 gram oral powder clonazepam 1 mg tablet TAKE 1 TABLET BY MOUTH THREE TIMES DAILY NEEDED FOR ANXIETY Combivent Respimat 20 mcg-100 mcg/actuation solution for inhalation dextroamphetamine-amphetamine 20 mg tablet Take 1 tablet(s) twice a day by oral route. Effexor XR 75 mg capsule,extended release Take 1 capsule every day by oral route in the morning. famotidine 40 mg tablet gabapentin 300 mg capsule Take 1 capsule every day by oral route for 30 days. GaviLyte-G 236 gram-22.74 gram-6.74 gram-5.86 gram oral solution hydrocortisone 1 % topical cream ibuprofen 800 mg tablet ivermectin 3 mg tablet lidocaine-prilocaine 2.5 %-2.5 % topical cream metoprolol succinate ER 25 mg tablet,extended release 24 hr mupirocin 2 % topical ointment Nexium 20 mg capsule,delayed release Take 1 capsule every day by oral route for 30 days. nystatin 100,000 unit/gram topical cream ondansetron 8 mg disintegrating tablet pantoprazole 40 mg tablet,delayed release prednisone 10 mg tablet quetiapine 50 mg tablet Take 1 tablet twice a day by oral route. Medications Administered None recorded. Vitals None recorded. Results Lab Results None recorded. Allergies Code Code System Name Reaction Severity Status Onset 92 RxNorm Reglan Other Severe Active Problems Name Status Onset Date Source Crusted Scabies Active 03/14/2018 Chronic Obstructive Lung Disease Active 03/14/2018 Moderate Recurrent Major Depression Active Panic Disorder with Agoraphobia Active Attention Deficit Hyperactivity Disorder Active Procedures None recorded. Vaccine List None recorded. Social History Tobacco Smoking Status Former Smoker Past Encounters 04/06/2019 Attention Deficit Hyperactivity Disorder; Moderate Recurrent Major Depression; Panic Disorder with Agoraphobia Yovany Baird MD: [facility]ud[facility], [place] [address], Ph. [phone] History of Present Illness Psych Medication Management Reported By: Patient HPI: Medications: taking medications as directed, no side effects from medication. General overall feeling: feeling as well as can be expected Psychiatric General Follow-Up Reported By: Patient HPI: Context: no relationship stress Associated Symptoms: Mood: no sadness. Anxiety: generalized worry. Sleep: no insomnia. Appetite: no change Prior Treatment and Review:: Medication Compliance: greater than 90% Note: <p>Here for routine med. check. Reports doing okay. Now staying in [place] with her parents. States there is not enough space and she had to put her stuff in storage. states she has triedto find hr own place but she gets rejected by everyone because of that charge. Compliant with meds. No AE. Sleep fair, appetite okay. E/C fair. Mood okay but states whenever she thinks about her legal issue she gets down and feels things will never change for her. No new health issues. Denies ETOh/drugs. No legal issues.</p> Review of Systems None recorded. [...]
[2019-04-15] MEDS ORDERED: ALBUTEROL 2.5 MG/3 ML NEB SOL ONE (02:02)
[2019-04-15] MEDS ORDERED: IPRATROPIUM BROM 0.5MG/2.5ML ONE (02:02)
[2019-04-15] MEDS ORDERED: predniSONE 20 MG TAB ONE (02:02)
--- NOTE | 2019-04-15 02:45 | ER ---
Nurse's Notes [facility] Name: Lilian Quinteros Age: 58 yrs Sex: Female : 1960 Arrival Date: 04/15/2019 Time: 01:22 Bed 27 Private MD: Diagnosis: Chronic obstructive pulmonary disease with (acute) exacerbation Presentation: 04/15 01:20 Presenting complaint: Patient states: starting Saturday I had a bad cough and noticed I jb4 had a fever. Yesterday it began getting worse and I thought about coming up here but felt so bad I couldn't. Tonight the fever and wheezing was so bad I couldn't sleep. So I came up here to get checked out. 01:20 Transition of care: patient was not received from another setting of care. Onset of jb4 symptoms was April 13, 2019. Risk Assessment: Do you want to hurt yourself or someone else? Patient reports no desire to harm self or others. Initial Sepsis Screen: Does the patient meet any 2 criteria? No. Patient's initial sepsis screen is negative. Does the patient have a suspected source of infection? No. Patient's initial sepsis screen is negative. Care prior to arrival: None. 01:20 Method Of Arrival: Ambulatory jb4 01:20 Acuity: SUZANNE 4 jb4 Historical: - Allergies: 01:25 Reglan; jb4 - Home Meds: 01:25 clonazepam 1 mg Oral tab 1 tab 2 times per day [Active]; metoprolol tartrate 25 mg Oral jb4 tab 1 tab once daily [Active]; buspirone 15 mg Oral tab 1 tab three times a day [Active]; clonazepam 1 mg Oral TbDL 1 tab 3 times per day [Active]; Seroquel 50 mg Oral tab nightly [Active]; venlafaxine oral oral [Active]; pantoprazole oral oral [Active]; - PMHx: 01:25 Anxiety; Pancreatitis; psychogenic parasitosis; Hypertension; Depression; cardiac jb4 arrythmia; COPD; ADD/ADHD; - PSHx: 01:25 finger; jb4 - Immunization history:: Adult Immunizations up to date. - Coronavirus screen:: The patient has NOT traveled to [place], [place], or [place] in the past 14 days. Proceed with normal triage process as indicated. The patient has NOT had contact with known/suspected case of Coronavirus? Proceed with normal triage procedures. - Social history:: Smoking status: Patient reports the use of cigarette tobacco products, denies chronic smoking, but will smoke occasionally, Patient/guardian denies using alcohol, street drugs. - Ebola Screening: : No symptoms or risks identified at this time. Screenin:25 Abuse screen: Denies threats or abuse. Nutritional screening: No deficits noted. jb4 Tuberculosis screening: No symptoms or risk factors identified. Fall Risk None identified. Assessment: 01:25 General: Appears in no apparent distress. uncomfortable, Behavior is calm, cooperative, jb4 appropriate for age. Pain: Complains of pain in headache. Pain does not radiate. Pain currently is 8 out of 10 on a pain scale. Neuro: Level of Consciousness is awake, alert, obeys commands, Oriented to person, place, time, situation. Cardiovascular: Patient's skin is warm and dry. Respiratory: Airway is patent Respiratory effort is even, unlabored, Respiratory pattern is regular, symmetrical, Breath sounds are clear bilaterally. GI: No signs and/or symptoms were reported involving the gastrointestinal system. : No signs and/or symptoms were reported regarding the genitourinary system. EENT: No signs and/or symptoms were reported regarding the EENT system. Derm: Skin is intact, Skin is pink, warm \T\ dry. Musculoskeletal: Circulation, motion, and sensation intact. Range of motion: intact in all extremities. 02:06 Reassessment: Patient appears in no apparent distress at this time. No changes from jb4 previously documented assessment. Patient and/or family updated on plan of care and expected duration. Pain level reassessed. 02:40 Reassessment: PT reports increased in headache, provider notified see [facility] for orders. jb4 03:02 Reassessment: Patient appears in no apparent distress at this time. Patient and/or jb4 family updated on plan of care and expected duration. Pain level reassessed. Patient is alert, oriented x 3, equal unlabored respirations, skin warm/dry/pink. Vital Signs: 01:25 BP 112 / 88; Pulse 85; Resp 18; Temp 98.5(O); Pulse Ox 97% on R/A; Weight 65.77 kg (R); jb4 Height 5 ft. 6 in. (167.64 cm) (R); Pain 8/10; 03:02 BP 127 / 75; Pulse 62; Resp 16; Pulse Ox 100% on R/A; jb4 01:25 Body Mass Index 23.40 (65.77 kg, 167.64 cm) jb4 ED Course: 01:22 Patient arrived in ED. ds1 01:24 Chris Walls [facility]C [facility] la1 01:24 Ronald Alvarez MD is Attending Physician. la1 01:25 Arm band placed on right wrist. jb4 01:25 Patient has correct armband on for positive identification. Bed in low position. Call jb4 light in reach. Side rails up X 1. Pulse ox on. NIBP on. 01:35 Paco La, RN is Primary Nurse. jb4 01:39 Triage completed. jb4 01:52 Chest Pa And Lat (2 Views) XRAY In Process Unspecified. EDMS 02:05 Flu Sent. jb4 03:05 No provider procedures requiring assistance completed. Patient did not have IV access jb4 during this emergency room visit. Administered Medications: 02:04 Drug: predniSONE 60 mg Route: PO; jb4 03:04 Follow up: Response: No adverse reaction jb4 02:04 Drug: Albuterol - atroVENT (3:1) (2.5 mg - 0.5 mg) 3 ml Route: Nebulizer; jb4 02:30 Follow up: Response: No adverse reaction jb4 02:45 Drug: Tylenol 1000 mg Route: PO; jb4 03:04 Follow up: Response: No adverse reaction jb4 Outcome: 02:44 Discharge ordered by . la1 03:05 Discharged to home ambulatory, with significant other. jb4 03:05 Condition: stable 03:05 Discharge instructions given to patient, significant other, Instructed on discharge instructions, follow up and referral plans. medication usage, Demonstrated understanding of instructions, follow-up care, medications, Prescriptions given X 3. 03:06 Patient left the ED. jb4 Signatures: Dispatcher [employer] [facility] Radha Lu ds1 Chris Walls FNP-C COLLECT ON DELIVERY CLERK-Cla1 Paco La, RN RN jb4
--- NOTE | 2019-04-15 02:45 | EDPHYS ---
Physician Documentation [facility] Name: Lilian Quinteros Age: 58 yrs Sex: Female : 1960 Arrival Date: 04/15/2019 Time: 01:22 Bed 27 Private MD: ED Physician Ronald Alvarez HPI: 04/15 01:41 This 58 yrs old Female presents to ER via Ambulatory with complaints of la1 Wheezing, Fever. 01:41 The patient or guardian reports cough, that is intermittent, described as mild. Onset: la1 The symptoms/episode began/occurred yesterday. Modifying factors: The symptoms are alleviated by nothing. the symptoms are aggravated by nothing. Associated signs and symptoms: Pertinent negatives: chest pain, ear ache, rhinorrhea, sore throat, vomiting. Severity of symptoms: At their worst the symptoms were mild. The patient has experienced similar episodes in the past. The patient has not recently seen a physician. pt also reports she "wants to get her face checked out and that she thinks there are parasites on her face". Historical: - Allergies: 01:25 Reglan; jb4 - Home Meds: 01:25 clonazepam 1 mg Oral tab 1 tab 2 times per day [Active]; metoprolol tartrate 25 mg Oral jb4 tab 1 tab once daily [Active]; buspirone 15 mg Oral tab 1 tab three times a day [Active]; clonazepam 1 mg Oral TbDL 1 tab 3 times per day [Active]; Seroquel 50 mg Oral tab nightly [Active]; venlafaxine oral oral [Active]; pantoprazole oral oral [Active]; - PMHx: 01:25 Anxiety; Pancreatitis; psychogenic parasitosis; Hypertension; Depression; cardiac jb4 arrythmia; COPD; ADD/ADHD; - PSHx: 01:25 finger; jb4 - Immunization history:: Adult Immunizations up to date. - Coronavirus screen:: The patient has NOT traveled to [place], [place], or [place] in the past 14 days. Proceed with normal triage process as indicated. The patient has NOT had contact with known/suspected case of Coronavirus? Proceed with normal triage procedures. - Social history:: Smoking status: Patient reports the use of cigarette tobacco products, denies chronic smoking, but will smoke occasionally, Patient/guardian denies using alcohol, street drugs. - Ebola Screening: : No symptoms or risks identified at this time. ROS: 01:42 Constitutional: Negative for fever, chills, and weight loss, Eyes: Negative for injury, la1 pain, redness, and discharge, ENT: Negative for injury, pain, and discharge, Neck: Negative for injury, pain, and swelling, Cardiovascular: Negative for chest pain, palpitations, and edema. 01:42 Abdomen/GI: Negative for abdominal pain, nausea, vomiting, diarrhea, and constipation, Back: Negative for injury and pain, MS/Extremity: Negative for injury and deformity, Neuro: Negative for headache, weakness, numbness, tingling, and seizure, Psych: Negative for depression, anxiety, suicide ideation, homicidal ideation, and hallucinations, Allergy/Immunology: Negative for hives, rash, and allergies. 01:42 Respiratory: Positive for cough. 01:42 Skin: Positive for small scabs on face. Exam: 01:43 Constitutional: This is a well developed, well nourished patient who is awake, alert, la1 and in no acute distress. Head/Face: Normocephalic, atraumatic. Eyes: Pupils equal round and reactive to light, extra-ocular motions intact. ENT: Nares patent. No nasal discharge, no septal abnormalities noted. Mucous membranes moist. Neck: Trachea midline,Supple, full range of motion without nuchal rigidity, or vertebral point tenderness. No Meningismus. Chest/axilla: Normal chest wall appearance and motion. Nontender with no deformity. No lesions are appreciated. Cardiovascular: Regular rate and rhythm with a normal S1 and S2. 01:43 Back: No spinal tenderness. No costovertebral tenderness. Full range of motion. MS/ Extremity: Pulses equal, no cyanosis. Neurovascular intact. Full, normal range of motion. Neuro: Awake and alert, GCS 15, oriented to person, place, time, and situation. Cranial nerves II-XII grossly intact. Motor strength 5/5 in all extremities. Sensory grossly intact. Cerebellar exam normal. Normal gait. 01:43 Respiratory: the patient does not display signs of respiratory distress, Respirations: normal, Breath sounds: rhonchi, that are mild, are scattered, Respiratory rate: 18 Vital Signs: 01:25 BP 112 / 88; Pulse 85; Resp 18; Temp 98.5(O); Pulse Ox 97% on R/A; Weight 65.77 kg (R); jb4 Height 5 ft. 6 in. (167.64 cm) (R); Pain 8/10; 03:02 BP 127 / 75; Pulse 62; Resp 16; Pulse Ox 100% on R/A; jb4 01:25 Body Mass Index 23.40 (65.77 kg, 167.64 cm) jb4 MDM: 01:24 Patient medically screened. la1 02:42 Data reviewed: vital signs, nurses notes, radiologic studies, and as a result, I will la1 discharge patient. Data interpreted: Pulse oximetry: on room air is 97 %. Interpretation: normal. Counseling: I had a detailed discussion with the patient and/or guardian regarding: the historical points, exam findings, and any diagnostic results supporting the discharge/admit diagnosis, lab results, radiology results, to return to the emergency department if symptoms worsen or persist or if there are any questions or concerns that arise at home, smoking cessation. Special discussion: Based on the patient's history, exam, and Dx evaluation, there is no indication for emergent intervention or inpatient Tx. It is understood by the patient/guardian that if the Sx's persist or worsen they need to return immediately for re-evaluation. 04/15 01:35 Order name: Flu la1 04/15 01:35 Order name: Chest Pa And Lat (2 Views) XRAY la1 Administered Medications: 02:04 Drug: predniSONE 60 mg Route: PO; jb4 03:04 Follow up: Response: No adverse reaction jb4 02:04 Drug: Albuterol - atroVENT (3:1) (2.5 mg - 0.5 mg) 3 ml Route: Nebulizer; jb4 02:30 Follow up: Response: No adverse reaction jb4 02:45 Drug: Tylenol 1000 mg Route: PO; jb4 03:04 Follow up: Response: No adverse reaction jb4 Disposition: 05:21 Co-signature as Attending Physician, Ronald Alvarez MD I agree with the assessment and 4 plan of care. Disposition: 04/15/19 02:44 Discharged to Home. Impression: Chronic obstructive pulmonary disease with (acute) exacerbation. - Condition is Stable. - Discharge Instructions: Asthma, Adult, Chronic Bronchitis, Chronic Obstructive Pulmonary Disease Exacerbation. - Prescriptions for Prednisone 20 mg Oral Tablet - take 3 tablet by ORAL route once daily for 5 days; 15 tablet. Albuterol Sulfate 90 mcg/actuation - inhale 1-2 puff by INHALATION route every 4-6 hours; 1 Inhaler. Zithromax 500 mg Oral Tablet - take 1 tablet by ORAL route once daily for 5 days; 5 tablet. - Medication Reconciliation Form, Thank You Letter, Antibiotic Education form. - Follow up: Private Physician; When: 2 - 3 days; Reason: Recheck today's complaints, Re-evaluation by your physician. - Problem is new. - Symptoms have improved. Signatures: Dispatcher [employer] EDMS Chris Walls, SHALLOT PACKER-C SHALLOT PACKER-Cla1 Paco La RN RN jb4 Ronald Alvarez MD MD tw4 Corrections: (The following items were deleted from the chart) 03:06 02:44 04/15/2019 02:44 Discharged to Home. Impression: Chronic obstructive pulmonary jb4 disease with (acute) exacerbation. Condition is Stable. Forms are Medication Reconciliation Form, Thank You Letter, Antibiotic Education, Prescription Opioid Use. Follow up: Private Physician; When: 2 - 3 days; Reason: Recheck today's complaints, Re-evaluation by your physician. Problem is new. Symptoms have improved. la1
[2019-04-15] MEDS ORDERED: ACETAMINOPHEN 500 MG TAB ONE (02:53)
[2019-04-15 03:11] VITALS: TEMP 98.5
[2019-04-15 03:12] VITALS: BP 127/75; O2SAT 100
--- NOTE | 2019-04-15 07:54 | RAD REPORT ---
EXAM DESCRIPTION: Lary Pa And Lat (2 Views)04/15/2019 1:52 am CLINICAL HISTORY: Cough COMPARISON: None FINDINGS: Patchy opacities are present within the mid left lung. 9 millimeter nodular opacity mid to lower right lung. The heart is normal size IMPRESSION: Patchy opacities left lung likely pneumonia. This should be followed until it is clear t o help exclude a post obstructive process/underlying mass A 9 millimeter nodular opacity mid to lower right lung may represent an infiltrate, nodule or conflue nce of ribs and vessels. This also should followed on subsequent chest x-ray
== END 2019-04-15 03:06 | disposition home or self-care (01) ==
LOC: ER 01:21
DX: J44.1 Chronic obstructive pulmonary disease with (acute) exacerbation (principal); I10 Essential (primary) hypertension; F32.9 Major depressive disorder, single episode, unspecified; F41.9 Anxiety disorder, unspecified; F90.9 Attention-deficit hyperactivity disorder, unspecified type; Z72.0 Tobacco use; Z88.8 Allergy status to other drugs, medicaments and biological substances
CPT/HCPCS: 87804 ×2; 71046; 94640; 99284; J7512

== ENCOUNTER 2019-07-23 17:55 | Emergency (ER) | payer OTHER ==
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
--- OUTSIDE RECORDS SUMMARY | 2019-07-23 17:58 | XMS REPORT ---
:1960 Author Organization [employer] Care Team Providers Name Role Phone Satish San Provider Role Unavailable Allergies No Known Allergies Problems Problem Type Condition Code Onset Dates Condition Statu s Problem Swelling R60.9 Active Problem Muscle tension headache G44.209 Acti ve Problem Chronic obstructive pulmonary J44.9 Active disease (COPD) Problem Allergic rhinitis J30.9 Active Problem Osteoporosis M81.0 Active Problem Current chronic use of systemic Z79.52 Active steroids Problem Tobacco abuse counseling Z71.6 Act emeli Problem Gastro-esophageal reflux disease K21.9 Active without esophagitis Problem Attention deficit disorder F90.9 A ctive Problem Hepatitis C B19.20 Active Assessment Unspecified viral hepatitis C with 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 Assessment Attention deficit disorder F90.9 A ctive Assessment Tobacco abuse counseling Z71.6 Act emeli Problem Major depressive disorder, single F32.9 Active episode Assessment Rash and nonspecific skin eruption R21 Active Problem 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 Assessment Current chronic use of systemic Z79.52 Active steroids Problem Unspecified viral hepatitis C with 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 Medications Medication Code Code Instructions Start End Status Dosage System Date Date Amphetamine-Dex [facility] 64746479086 10 MG Orally Active 1 tablet in troamphetamine Once a day the mo rn and 1 tab at noon HydrOXYzine HCl ND 38926973856 50 MG Orally Active 1 tablet as every 6 hrs needed Permethrin ND 57673114704 5 % Externally Sept Oct Active 1 application Once a day , , to 2017 2018 area Clonazepam [facility] [address]-46 1 MG Orally Active 1 t ablet BID prn Seroquel ND 98894027947 25 MG Orally Active 1 tabl et in the morning, 2 tablets at bedtime PredniSONE ND 31513110008 10 MG Orally Active 1 ta blet Once a day Duloxetine HCl [facility] [address]-30 60 MG Orally Active 1 capsule Once a day BusPIRone HCl [facility] 61911489774 10 MG Orally Active 1 tablet Twice a day Fluocinonide ND 50250515760 0.05 % Active as dire cted Externally Nexium ND 64426520024 20 MG Orally Active 1 capsu le Once a day Proventil HFA [facility] 34693654626 108 (90 Base) Active 2 puffs as MCG/ACT needed Inhalation every 6 hrs ibuprofen ND 30187371892 Oral Active 1 tab HydrALAZINE HCl ND 97804777771 50 MG Orally Sept Active 1 tablet with Three times a 24, food 2017 Restasis ND 06021032320 0.05 % Active 1 drop into Ophthalmic affected eye Twice a day Klonopin ND 02163945813 1 MG Orally Active 1 table t Once a day Gabapentin ND 08521862944 300 MG Orally Active 1 c apsule Three times a before day bedtime Oxycodone HCl ND 08857555465 10 MG Orally Active 1 tablet as every 6 hrs needed Tizanidine HCl ND 85550414180 4 MG Orally Active 1 tablet as once a day; needed PRN Results No Known Results Summary Purpose eClinicalWorks Submission
--- OUTSIDE RECORDS SUMMARY | 2019-07-23 17:59 | XMS REPORT | Summary of Care ---
:1960 Author Organization [facility] Address [address] [place] [address] Care Team Providers Name Role Phone Lexi San Primary Care Provider Encounter Details Date Type Department Care Team Description 05/12/2019 Prep For Surgery [facility] Wayne Sommers Painful orthopaedic Orthopaedic Surgery- MD Doris hardware (Primary Dx) [place] [address], [place] [phone] Allergies Active Allergy Reactions Severity Noted Date Comments Metoclopramide Hcl Anaphylaxis 10/11/2016 documented as of this encounter (statuses as of 05/12/2019) Medications Medication Sig Dispensed Refills Start Date End Date Status clonazePAM (KLONOPIN) Take 0.5 mg by 0 Active 0.5 mg tablet mouth 2 (two) times daily. DULoxetine 30 mg Take 60 mg by mouth 0 Active capsule daily. dextroamphetamine-amp Take 10 mg by mouth 0 Active hetamine (ADDERALL) every morning. 10 mg tablet Oxycodone 10 mg Tab Take 10 mg by 0 Active mouth. mupirocin (BACTROBAN) Apply to affected 1 Tube 0 7 Active 2 % cream area(s) 3 (three) times daily. sulfamethoxazole-trim Take 1 tablet by 20 tablet 0 10/11/2016 Active ethoprim 800-160 mg mouth every 12 per tablet (twelve) hours. Hospital, Clinic, or Other Ordered Dose Route Frequency Start Date End Date Status Facility Administered Medication ceFAZolin in dextrose 2 g IVPB ONCE NOW 05/18/2019 020 Active (iso-os) (ANCEF) 2 gram/100 mL Piggyback 2 g celecoxib (CELEBREX) 400 mg Oral ONCE 05/18/2019 05/18/19 20 Active capsule 400 mg gabapentin (NEURONTIN) 300 mg Oral ONCE 05/18/20192019 Active capsule 300 mg oxyCODONE-acetaminophen 2 tablet Oral ONCE 05/18/201905/17 Active (PERCOCET) 5-325 mg per tablet 2 tablet tranexamic acid 1000 mg IVPB ONCE 05/18/2019 05/18/2019 Ac tive (CYKLOKAPRON) 1,000 mg in NaCl 0.9% (NS) 250 mL piggyback documented as of this encounter (statuses as of 05/12/2019) Active Problems Not on filedocumented as of this encounter (statuses as of 05/12/2019) Social History Tobacco Use Types Packs/Day Years Used Date Never Smoker Smokeless Tobacco: Never Used Sex Assigned at Date Recorded Not on file Job Start Date Occupation Industry Not on file Not on file Not on file Travel History Travel Start Travel End No recent travel history available. documented as of this encounter Last Filed Vital Signs Not on filedocumented in this encounter Plan of Treatment Health Maintenance Due Date Last Done Comments HEPATITIS C (HCV) SCREEN 1960 DTaP,Tdap,and Td Vaccines ( - 11/30/1970 Tdap) PAP SMEAR 11/30/1980 Breast Cancer Screening 1999 (MAMMOGRAM) COLONOSCOPY 11/30/2009 Zoster Recombinant Vaccine 11/30/2009 (SHINGRIX) (1 of 2) INFLUENZA VACCINE (#1) 2018 PNEUMOCOCCAL 0-64 YEARS COMBINED Aged Out No longer eligible based on SERIES patient's age to complete this topic documented as of this encounter Results Not on filedocumented in this encounter Visit Diagnoses Diagnosis Painful orthopaedic hardware - Primary documented in this encounter Insurance Payer Benefit Plan / Subscriber ID Effective Dates Phone [facility] xxxxxxxxx 2019-Present Medicaid COMM PLAN - PLUS MANAGED MEDICAID documented as of this encounter
--- OUTSIDE RECORDS SUMMARY | 2019-07-23 17:59 | XMS REPORT | Summary of Care ---
:1960 Author Organization [facility] Address [address] [place] [address] Care Team Providers Name Role Phone Lexi San Primary Care Provider Encounter Details Date Type Department Care Team Description 05/15/2019 Orders Only [facility] Doctor Unassigned, No [address] [facility] [place] [address] [address] [place] [address] Allergies Active Allergy Reactions Severity Noted Date Comments Metoclopramide Hcl Anaphylaxis 10/11/2016 documented as of this encounter (statuses as of 05/15/2019) Medications Medication Sig Dispensed Refills Start Date End Date Status clonazePAM (KLONOPIN) Take 0.5 mg by 0 Active 0.5 mg tablet mouth 2 (two) times daily. DULoxetine 30 mg Take 60 mg by 0 Active capsule mouth daily. dextroamphetamine-amphe Take 10 mg by 0 Active tamine (ADDERALL) 10 mg mouth every tablet morning. Oxycodone 10 mg Tab Take 10 mg by 0 Active mouth. mupirocin (BACTROBAN) 2 Apply to 1 Tube 0 10/11/2016 Active % cream affected area(s) 3 (three) times daily. sulfamethoxazole-trimet Take 1 tablet by 20 tablet 0 7 Active hoprim 800-160 mg per mouth every 12 tablet (twelve) hours. venlafaxine 75 mg Take 75 mg by 0 Active tablet mouth daily. pantoprazole 40 mg EC Take 40 mg by 0 Active tablet mouth daily. clonazePAM 1 mg tablet Take 1 mg by 0 Active mouth 3 (three) times daily. QUEtiapine (SEROQUEL) Take 50 mg by 0 Active 50 mg tablet mouth 2 (two) times daily. metoprolol succinate XL Take 25 mg by 0 Active 25 mg 24 hr tablet mouth daily. amoxicillin 500 mg Take 500 mg by 0 Active tablet mouth 3 (three) times daily. ibuprofen 200 mg tablet Take 200 mg by 0 Active mouth every 6 (six) hours as needed. acetaminophen (TYLENOL Take 500 mg by 0 Active EXTRA STRENGTH) 500 mg mouth every 6 tablet (six) hours as needed for Pain. vsrgapq-tcwaomerzxpsc-z Take 1 tablet by 0 Active affeine (EXCEDRIN mouth every 6 MIGRAINE) 250-250-65 mg (six) hours as per tablet needed for Pain. dextroamphetamine-amphe Take 20 mg by 0 Active tamine (ADDERALL) 20 mg mouth 2 (two) tablet times daily. Hospital, Clinic, or Other Ordered Dose Route [...] as of this encounter (statuses as of 05/15/2019) Active Problems Problem Noted Date Painful orthopaedic hardware 05/12/2019 Overview: Added automatically from request for joanna pearl [phone] documented as of this encounter (statuses as of 05/15/2019) Social History Tobacco Use Types Packs/Day Years Used Date Current Some Day Smoker Cigarettes Smokeless Tobacco: Never Used Comments: Occasional Smoker - trying to quit Alcohol Use Drinks/Week oz/Week Comments Never Alcohol Habits Answer Date Recorded How often do you have a drink containing alcohol? Never 05/15/2019 How many drinks containing alcohol do you [...] filedocumented in this encounter Plan of Treatment Date Type Specialty Care Team Description 05/18/2019 Hospital Encounter Surgery Brandie Sommers MD Painful orthopaedic [address] [place] [place] [address] 05/18/2019 Anesthesia Event Surgery Hal Worthington C [address] [phone] 05/18/2019 Surgery Surgery Wayne Sommers MD [facility] [address] [place] [address] [place] [address] Health Maintenance Due Date Last Done Comments HEPATITIS C (HCV) SCREEN 1960 DTaP,Tdap,and Td Vaccines (1 - 11/30/1970 Tdap) PAP SMEAR 11/30/1980 Breast Cancer Screening 1999 (MAMMOGRAM) COLONOSCOPY 11/30/2009 Zoster Recombinant Vaccine 11/30/2009 (SHINGRIX) (1 of 2) INFLUENZA VACCINE (#1) 2018 PNEUMOCOCCAL 0-64 YEARS COMBINED Aged Out No longer eligible based on SERIES patient's age to complete this topic documented as of this encounter Procedures Procedure Name Priority Date/Time Associated Diagnosis Comme nts ASSIGNMENT OF BENEFITS Routine 05/15/2019 4:37 PM 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
--- OUTSIDE RECORDS SUMMARY | 2019-07-23 17:59 | XMS REPORT | Summary of Care ---
:1960 Author Organization [facility] Address [address] [place] [address] Care Team Providers Name Role Phone Lexi San Primary Care Provider Reason for Referral Radiology Services (Routine) Status Reason Specialty Diagnoses / Referred By Referred To Procedures Contact Contact New Request Diagnostic Diagnoses Left hand pain Wayne Sommers Radiology Procedures XR HAND <3 VW YUAN George MD [address] [place] [address] Reason for Visit Reason Comments New Patient Hand Pain Left hand, small finger inju ry DOI:07/2018 Encounter Details Date Type Department Care Team Description 05/11/2019 Office Visit [facility] Orthopaedic Wayne Sommers L eft hand pain Surgery- Carissa George MD (Primary Dx) [address] [place] [address] [place], [place] [phone] Allergies Active Allergy Reactions Severity Noted Date [...] mouth every 12 per tablet (twelve) hours. documented as of this encounter (statuses as [...] of this encounter Last Filed Vital Signs Vital Sign Reading Time Taken Comments Blood Pressure 120/89 05/11/2019 3:53 PM [facility] Pulse 76 05/11/2019 3:53 PM [facility] Temperature - - Respiratory Rate 18 05/11/2019 3:53 PM [facility] C[facility] Oxygen Saturation - - Inhaled Oxygen Concentration - - Weight 63.5 kg (140 lb) 05/11/2019 3:53 PM [facility] CENTER SPECIALIST Height 170.2 cm (5' 7") 05/11/2019 3:53 PM [facility] Body Mass Index 21.93 05/11/2019 3:53 PM [facility] C[facility] SPECIALIST documented in this encounter Progress Notes Wayne Sommers MD - 05/11/2019 3:30 PM CST Lilian Quinteros is a 58 year old female Chief Complaint Patient presents with New Patient Hand Pain Left hand, small finger injury DOI:07/2018 Vitals: 05/11/19 1553 BP: 120/89 BP Location: Left arm Patient Position: Sitting BP CUFF SIZE: Adult Medium Pulse: 76 Resp: 18 Weight: 63.5 kg (140 lb) Height: 67" (170.2 cm) [id number] - [place] [place] [facility] [employer] [employer]; [place]le[place] Incident occurred: 07/2018 Incident location: home Injury mechanism: patient stated she slammed her hand in a door, had to have surgery and pins were placed in small finger. Patient did not follow up with DR so pins are still in place, patient did say two fell out Pain location: left hand pinky finger DME status: none Radiology status: none All Vitals taken, allergies and all medications reviewed, fall risk assessed. Pain level 5/10. RENÉE MCLEAN MA 05/11/2019 4:03 PM Lilian Quinteros is a 58 year old female. Hand Pain Incident onset: 07/2018. The incident occurred at home. The injury mechanism was a direct blow. The pain is present in the left fingers (left small finger ). The quality of the pain is described as aching, burning, shooting and stabbing. The pain does not radiate. The pain is at a severity of 7/10. The pain is moderate. The pain has been worsening since the incident. Associated symptoms include muscle weakness. The symptoms are aggravated by movement, palpation and lifting. She has tried NSAIDs, rest, immobilization and acetaminophen for the symptoms. The treatment provided no relief. Allergies Lilian is allergic to reglan [metoclopramide hcl]. Medications Outpatient Medications Prior to Visit Medication Sig Dispense Refill clonazePAM (KLONOPIN) 0.5 mg tablet Take 0.5 mg by mouth 2 (two) times daily. dextroamphetamine-amphetamine (ADDERALL) 10 mg tablet Take 10 mg by mouth every morning. DULoxetine 30 mg capsule Take 60 mg by mouth daily. mupirocin (BACTROBAN) 2 % cream Apply to affected area(s) 3 (three) times daily. 1 Tube 0 Oxycodone 10 mg Tab Take 10 mg by mouth. sulfamethoxazole-trimethoprim 800-160 mg per tablet Take 1 tablet by mouth every 12 (twelve) hours. 20 tablet 0 No facility-administered medications prior to visit. Histories Past Medical History: Diagnosis Date Depression Panic attack RA (rheumatoid arthritis) No past surgical history on file. Social History Socioeconomic History Marital status: Spouse name: Not on file Number of children: Not on file Years of education: Not on file Highest education level: Not on file Occupational History Not on file Social Needs Financial resource strain: Not on file Food insecurity: Worry: Not on file Inability: Not on file Transportation needs: Medical: Not on file Non-medical: Not on file Tobacco Use Smoking status: Not on file Substance and Sexual Activity Alcohol use: Not on file Drug use: Not on file Sexual activity: Not on file Lifestyle Physical activity: Days per week: Not on file Minutes per session: Not on file Stress: Not on file Relationships Social connections: Talks on phone: Not on file Gets together: Not on file Attends hindu service: Not on file Active member of club or organization: Not on file Attends meetings of clubs or organizations: Not on file Relationship status: Not on file Intimate partner violence: Fear of current or ex partner: Not on file Emotionally abused: Not on file Physically abused: Not on file Forced sexual activity: Not on file Other Topics Concern Not on file Social History Narrative Not on file No family history on file. Review of Systems Constitutional: Negative. HENT: Negative. Eyes: Negative. Respiratory: Negative. Breasts: Negative. Cardiovascular: Negative. Gastrointestinal: Negative. Genitourinary: Negative. Musculoskeletal: Positive for joint swelling. Skin: Negative. Neurological: Negative. Psychiatric/Behavioral: Negative. Endocrine: Endocrine negative Vital Signs Ht 67" (170.2 cm) | Wt 63.5 kg (140 lb) | BMI 21.93 kg/m Physical Exam Musculoskeletal: Left hand: She exhibits decreased range of motion, tenderness, bony tenderness, deformity and swelling. Hands: General: Well-developed well-nourished oriented to person place and time HEENT normocephalic atraumatic atraumatic pupils equal round reactive to light extraocular muscles intact Cervical thoracic and lumbar spine without focal deficit normal kyphosis and lordosis Chest clear to auscultation and percussion Cardiovascular regular rate and rhythm without gallop rub or murmur soft without organomegaly Normal bowel sounds Neurologic: Focal myotome or dermatomal deficits Vascular: Intact symmetrical bilateral upper and lower extremities Skin without stasis varicosities or breakdown Extremities without cyanosis clubbing or edema Lymphatics no peripheral lymphedema Psych normal mood and affect. Neurovascular function is intact. To include brisk capillary refill warm pink skin active motor function and sensory function intact. Nursing note and vitals reviewed. Assessment/Plan Diagnosis Left small finger painful hardware Plan Removal of painful hardware at [facility] on 05/18/2019. I have discussed the patient's physical exam and reviewed their x-rays/imaging/results with them in detail. Discussed surgery at great lengths regarding risks and benefits. Explained as with any procedure there may be pain, damage to nerve and vascular structures, fat embolism, need for additional surgery, failure of procedure to relieve pain. We spoke of recovery time, expected outcome, possible restrictions and anticipation return to work date as well as possible rehabilitation if needed or required after the surgery. All questions have been answered. Condition and plans were discussed with patient, who expressed understanding and is agreeable to theplan. Will also order an RA Profile due to complaints of multiple joint pain. Follow up for results 2 weeks post-op. A CENTER SPECIALIST documented in this encounter Plan of Treatment Name Type Priority Associated Order Schedule Diagnoses RHEUMATOID FACTOR LAB Routine Left hand pain Expected : 05/11/2019, Exp ires: 05/11/2020 SEDIMENTATION RATE LAB Routine Left hand pain Expecte d: 05/11/2019, Exp ires: 05/11/2020 C-REACTIVE PROTEIN LAB Routine Left hand pain Expecte d: 05/11/2019, Exp ires: 05/11/2020 CBC WITH DIFF LAB Routine Left hand pain Expected: 05/11/2019, Exp ires: 05/11/2020 URIC ACID LAB Routine Left hand pain Ordered: 04/19 ANTI-NUCLEAR ANTIBODY LAB Routine Left hand pain Orde red: 05/11/2019 SCREEN XR CHEST 1 VW IMAGING Routine Left hand pain Expected: 05/11/2019, Exp ires: 06/09/2019 EKG-12 LEAD ROUTINE HEART STATION Routine Left hand pain 1 Occ urrences starting 2019 until 0 BASIC METABOLIC PANEL LAB Routine Left hand pain Expe cted: ([id number])(NA, K, CL, CO2, 04/19, Expires: GLUCOSE, BUN, 05/11/2020 CREATININE, CA) URINALYSIS LAB Routine Left hand pain Expected: 05/11/2019, Exp ires: 05/11/2020 Health Maintenance Due Date Last Done Comments [...] topic documented as of this encounter Results XR HAND <3 VW LEFT (05/11/2019 4:04 PM [facility] SPECIALIST) Specimen Narrative Performed At This result has an attachment that is no t available. Pin intact left small finger PACS Performing Organization Address City/State/[facility] [place] Phone Number PACS documented in this encounter Visit Diagnoses Diagnosis Left hand pain - Primary Pain in limb documented in this encounter Insurance Payer Benefit Plan / Subscriber ID Effective Dates Phone Addre Type Group [facility] xxxxxxxxx 2019-Present Medicaid COMM PLAN - PLUS MANAGED MEDICAID documented as of this encounter
--- OUTSIDE RECORDS SUMMARY | 2019-07-23 17:59 | XMS REPORT ---
:1960 Author Organization [facility] t Address [address] [place] [address] Care Team Providers Name Role Phone JOSE ALTAMIRANO Unavailable Unavailable Problems Condition Condition Condition Status Onset Resolution Last Treatin g Comments Name Details Category Date Date Treatment Clinician Date Crusted Crusted Problem Active 2017-03 scabies Scabies 05-15 00:00: 00 Chronic Chronic Problem Active 2017-03 obstructive Obstructive 05-15 lung Lung 00:00: disease Disease 00 Swelling Swelling Problem Active Muscle Muscle Problem Active tension tension headache headache Chronic Chronic Problem Active obstructive obstructive pulmonary pulmonary disease disease (COPD) (COPD) Allergic 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rhinitis rhinitis Osteoporosi Osteoporosi Problem Active s s Current Current Diagnosis Active chronic use chronic use of systemic of systemic steroids steroids Tobacco Tobacco Diagnosis Active abuse abuse counseling counseling Gastro-esop Gastro-esop Problem Active hageal hageal reflux reflux disease disease without without esophagitis esophagitis Attention Attention Diagnosis Active deficit deficit disorder disorder Hepatitis C Hepatitis C Problem Active Unspecified Unspecified Problem Active viral viral hepatitis C hepatitis C with with hepatic hepatic coma coma Major Major Problem Active depressive depressive disorder, disorder, single single episode episode Rash and Rash and Diagnosis Active nonspecific nonspecific skin skin eruption eruption 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 Clinician (SIG) Name Name HydrALAZINE HydrALAZINE Yes Satish 1 tabl et HCl HCl 9 Jaswinder with food 00:00: 00 Permethrin Permethrin 2018- No Satish 1 12-09 Jaswinder applicatio 00:00: 00:00 n to 00 :00 affected area Amphetamine Amphetamine Yes Satish 1 table t -Dextroamph -Dextroamph Jaswinder in the etamine etamine morning and 1 tab at noon HydrOXYzine HydrOXYzine Yes Satish 1 table t HCl HCl Jaswinder as needed Clonazepam Clonazepam Yes Satish 1 tablet Jaswinder Seroquel Seroquel Yes Satish 1 tablet Jaswinder in the morning, 2 tablets at bedtime PredniSONE PredniSONE Yes Satish 1 tablet Jaswinder Duloxetine Duloxetine Yes Satish 1 capsule HCl HCl Jaswinder BusPIRone BusPIRone Yes Satish 1 tablet HCl HCl Jaswinder Fluocinonid Fluocinonid Yes Satish as e e Jaswinder directed Nexium Nexium Yes Satish 1 capsule Jaswinder Proventil Proventil Yes Satish 2 puffs as HFA HFA Jaswinder needed ibuprofen ibuprofen Yes Satish 1 tab Jaswinder Restasis Restasis Yes Satish 1 drop Jaswinder into affected eye Klonopin Klonopin Yes Satish 1 tablet Jaswinder Gabapentin Gabapentin Yes Satish 1 capsule Jaswinder before bedtime Oxycodone Oxycodone Yes Satish 1 tablet HCl HCl Jaswinder as needed Tizanidine Tizanidine Yes Satish 1 tablet HCl HCl Jaswinder as needed acetaminoph acetaminoph No acetamin op en 300 en 300 hen 300 mg-codeine mg-codeine mg-codeine 30 mg 30 mg 30 mg tablet tablet tablet amlodipine amlodipine No amlodipine 5 mg tablet 5 mg tablet 5 mg tablet amoxicillin amoxicillin No amoxicil li 500 mg 500 mg n 500 mg capsule capsule capsule azithromyci azithromyci No azithrom yc n 250 mg n 250 mg in 250 mg tablet tablet tablet azithromyci azithromyci No azithrom yc n 500 mg n 500 mg in 500 mg tablet tablet tablet benzonatate benzonatate No benzonat at 100 mg 100 mg e 100 mg capsule capsule capsule buspirone buspirone No buspirone 15 mg 15 mg 15 mg tablet TAKE tablet TAKE tablet 1 TABLET BY 1 TABLET BY TAKE 1 MOUTH THREE MOUTH THREE TABLET B Y TIMES DAILY TIMES DAILY MOUTH THREE TIMES DAILY cholestyram cholestyram No cholesty ra ine (with ine (with mine (with sugar) 4 sugar) 4 sugar) 4 gram oral gram oral gram oral powder powder powder clonazepam clonazepam No clonazepam 1 mg tablet 1 mg tablet 1 mg TAKE 1 TAKE 1 tablet TABLET BY TABLET BY TAKE 1 MOUTH THREE MOUTH THREE TABLET B Y TIMES DAILY TIMES DAILY MOUTH THREE TIMES DAILY Combivent Combivent No Combivent Respimat 20 Respimat 20 Respimat mcg-100 mcg-100 20 mcg-100 mcg/actuati mcg/actuati mcg/actu at on solution on solution ion for for solution inhalation inhalation for inhalation dextroamphe dextroamphe No dextroam ph tamine-amph tamine-amph etamine- am etamine 20 etamine 20 phetamine mg tablet mg tablet 20 mg Take 1 Take 1 tablet tablet(s) tablet(s) Take 1 twice a day twice a day tablet(s ) by oral by oral twice a route. route. day by oral route. famotidine famotidine No famotidine 40 mg 40 mg 40 mg tablet tablet tablet gabapentin gabapentin No gabapentin 300 mg 300 mg 300 mg capsule capsule capsule Take 1 Take 1 Take 1 capsule capsule capsule every day every day every day by oral by oral by oral route for route for route for 30 days. 30 days. 30 days. GaviLyte-G GaviLyte-G No GaviLyte-G 236 236 236 gram-22.74 gram-22.74 gram-22.74 gram-6.74 gram-6.74 gram-6.74 gram-5.86 gram-5.86 gram-5.86 gram oral gram oral gram oral solution solution solution hydrocodone hydrocodone No hydrocod on 7.5 7.5 e 7.5 mg-acetamin mg-acetamin mg-aceta mi ophen 325 ophen 325 nophen 325 mg tablet mg tablet mg tablet hydrocortis hydrocortis No hydrocor ti one 1 % one 1 % sone 1 % topical topical topical cream cream cream ibuprofen ibuprofen No ibuprofen 600 mg 600 mg 600 mg tablet tablet tablet ibuprofen ibuprofen No ibuprofen 800 mg 800 mg 800 mg tablet tablet tablet ivermectin ivermectin No ivermectin 1 % topical 1 % topical 1 % cream cream topical cream ivermectin ivermectin No ivermectin 3 mg tablet 3 mg tablet 3 mg tablet Lexapro 20 Lexapro 20 No 1 Q1D Lexapro 20 mg tablet mg tablet mg tablet Take 1 Take 1 Take 1 tablet tablet tablet every day every day every day by oral by oral by oral route. route. route. lidocaine-p lidocaine-p No lidocain e- rilocaine rilocaine prilocaine 2.5 %-2.5 % 2.5 %-2.5 % 2.5 %-2. 5 topical topical % topical cream cream cream methocarbam methocarbam No methocar ba ol 500 mg ol 500 mg mol 500 mg tablet tablet tablet metoprolol metoprolol No metoprolol succinate succinate succinate ER 25 mg ER 25 mg ER 25 mg tablet,exte tablet,exte tablet,e xt nded nded ended release 24 release 24 release 24 hr hr hr mupirocin 2 mupirocin 2 No mupiroci n % topical % topical 2 % ointment ointment topical ointment Narcan 4 Narcan 4 No Narcan 4 mg/actuatio mg/actuatio mg/actua ti n nasal n nasal on nasal spray spray spray Nexium 20 Nexium 20 No Nexium 20 mg mg mg capsule,del capsule,del capsule, de ayed ayed layed release release release Take 1 Take 1 Take 1 capsule capsule capsule every day every day every day by oral by oral by oral route for route for route for 30 days. 30 days. 30 days. nystatin nystatin No nystatin 100,000 100,000 100,000 unit/gram unit/gram unit/gram topical topical topical cream cream cream ondansetron ondansetron No ondanset ro 8 mg 8 mg n 8 mg disintegrat disintegrat disinteg ra ing tablet ing tablet ting tablet pantoprazol pantoprazol No pantopra zo e 40 mg e 40 mg le 40 mg tablet,tyler tablet,tyler tablet,d el yed release yed release ayed release permethrin permethrin No permethrin 5 % topical 5 % topical 5 % cream cream topical cream prednisone prednisone No prednisone 10 mg 10 mg 10 mg tablet tablet tablet prednisone prednisone No prednisone 20 mg 20 mg 20 mg tablet tablet tablet ProAir HFA ProAir HFA No ProAir HFA 90 90 90 mcg/actuati mcg/actuati mcg/actu at on aerosol on aerosol ion inhaler inhaler aerosol inhaler quetiapine quetiapine No 1 Q1D quetiapine 100 mg 100 mg 100 mg tablet Take tablet Take tablet 1 tablet 1 tablet Take 1 every day every day tablet by oral by oral every day route at route at by oral bedtime. bedtime. route at bedtime. quetiapine quetiapine No 1 BID quetiapine 50 mg 50 mg 50 mg tablet Take tablet Take tablet 1 tablet 1 tablet Take 1 twice a day twice a day tablet by oral by oral twice a route. route. day by oral route. Encounters Start End Encounter Admission Attending Care Care Encounter Date/Time Date/Time Type Type Clinicians Facility Department ID 2019-07-13 2019-07-13 Yovany VICKY [place] - [id number] 00:00:00 00:00:00 Ozzy Baird MD: [facility] [address] [place] [id number], Ph. ([phone]) --20072019-04-06 2019-04-06 Yovany VICKY [place] - [id number] 00:00:00 00:00:00 Ozzy Baird MD: [facility] [address] [facility], [place] [address], Ph. ([phone]) --20072019-01-05 2019-01-05 Yovany PERRY [place] - [id number] 00:00:00 00:00:00 Ozzy Baird MD: [facility] [address] [facility] [address], [facility] [address], Ph. ([phone]) --20072017-12-09 2017-12-09 [facility] [id number] 13:15:00 13:15:00 [facility] Medicine Results Test Description Test Time Test Comments Text Results Atomic Results Result Comments MAYRA GRAY, 3 2018-08-03 Reason for FINAL REPORT PATIENT ID: [id number] VIEWS, LEFT 19:03:00 exam:->eval TECHNIQUE: Three views of th e left post-op frx w/ hand. INDICATION: eval pos t-op frx w/ pin pin. COMPARISON: Radiograph from 07/09/2018. FINDINGS/IMPRESSION:Percutan eous pins in the proximal portion of t he proximal phalanx of the smal l finger with slight apex palmar angu lation. No significant callus format ion. Mild osteophytosis of the carpome tacarpal joint of the thumb, consiste nt with moderate degenerative change . Signed: Enoc Nunez MDReport Verified Date/Time: 08/03/2018 19:03 :56 Reading Location: [facility] B1 C01 3Y [address] Body Reading Room Elect ronically signed by: ENOC NUNEZ MD on 08/03/2018 07:03 PM [place], HEAD OF TRAN[employer]ORT [employer] IN 2018-07-17 Reason for PROCEDURE PERFORMED IN O. R. - PLEASE OR/30 MINUTE 18:30:00 exam:->ORIF Left REFER TO THE INTRAOPERAT VISH REPORT. INCREMENTS little finger ESIUM 2018-07-10 07:39:00 Test Item Value Reference Range Comments MAGNESIUM (BEAKER) (test code = 627) 2.2 mg/dL 1.6-2.6 Specimen slightly hemolyzed [id number] 07:39:00 Test Item Value Reference Range Comments PHOSPHORUS (BEAKER) (test code 4.1 mg/dL 2.3-4.7 S pecimen slightly hemolyzed = 604) BASIC METABOLIC [id number] 07:39:00 Test Item Value Reference Range Comments SODIUM (BEAKER) (test 139 meq/L 136-145 code = 381) POTASSIUM (BEAKER) (test 4.1 meq/L 3.5-5.1 Specime n slightly code = 379) hemolyzed CHLORIDE (BEAKER) (test 106 meq/L 98-107 code = 382) CO2 (BEAKER) (test code = 27 meq/L 22-29 355) BLOOD UREA NITROGEN 15 mg/dL 7-21 (BEAKER) (test code = 354) CREATININE (BEAKER) (test 0.83 mg/dL 0.57-1.25 Specim en slightly code = 358) hemolyzed GLUCOSE RANDOM (BEAKER) 83 mg/dL 70-105 (test code = 652) CALCIUM (BEAKER) (test 8.5 mg/dL 8.4-10.2 code = 697) EGFR (BEAKER) (test code 71 mL/min/1.73 sq m EST IMATED GFR IS NOT = 1092) ACCURATE CREA TININE CLEARANCE IN PRE DICTING GLOMERULAR FILTR ATION RATE. ESTIMATED GFR IS NOT APPLICABLE F OR DIALYSIS PATIENT S. RAD, HAND, 3 VIEWS, [id number] 12:58:00Reason for exam:->left finger fractureFINAL REPORT Left hand. MEDICAL HISTORY: Left finger fracture. COMPARISON STUDY: None available. FINDINGS: Five views of the left hand demonstrate a comminuted prominently horizontally oriented fracture of the proximal metaphysis of the fifth proximal phalanx. Some apex volar ang ulation is noted. No other sites of fracture are seen. Degenerative changes are present. Signed: Rl Woodson MDReport Verified Date/Time: 07/09/2018 12:58:27 Reading Location: [address] ConsultReading Room [id number] 04:31:00 Test Item Value Reference Range Comments PHOSPHORUS (BEAKER) (test code = 604) 3.8 mg/dL 2.3-4.7 [id number] 04:31:00 Test Item Value Reference Range Comments MAGNESIUM (BEAKER) (test code = 627) 2.4 mg/dL 1.6-2.6 BASIC METABOLIC [id number] 04:31:00 Test Item Value Reference Range Comments SODIUM (BEAKER) (test 139 meq/L 136-145 code = 381) POTASSIUM (BEAKER) (test 3.3 meq/L 3.5-5.1 code = 379) CHLORIDE (BEAKER) (test 104 meq/L 98-107 code = 382) CO2 (BEAKER) (test code = 27 meq/L 22-29 355) BLOOD UREA NITROGEN 18 mg/dL 7-21 (BEAKER) (test code = 354) CREATININE (BEAKER) (test 0.82 mg/dL 0.57-1.25 code = 358) GLUCOSE RANDOM (BEAKER) 113 mg/dL 70-105 (test code = 652) CALCIUM (BEAKER) (test 8.8 mg/dL 8.4-10.2 code = 697) EGFR (BEAKER) (test code 72 mL/min/1.73 sq m EST IMATED GFR IS NOT = 1092) ACCURATE CREA TININE CLEARANCE IN PRE DICTING GLOMERULAR FILTR ATION RATE. ESTIMATED GFR IS NOT APPLICABLE F OR DIALYSIS PATIENT S. CBC W/PLT COUNT & AUTO [id number] 04:05:00 Test Item Value Reference Range Comments WHITE BLOOD CELL COUNT (BEAKER) (test code = 6.8 K/ L 3.5 -10.5 775) RED BLOOD CELL COUNT (BEAKER) (test code = 761) 3.99 M/ L 3.93-5.22 HEMOGLOBIN (BEAKER) (test code = 410) 12.5 GM/DL 11.2-15.7 HEMATOCRIT (BEAKER) (test code = 411) 37.1 % 34.1-44.9 MEAN CORPUSCULAR VOLUME (BEAKER) (test code = 93.0 fL 79 .4-94.8 753) MEAN CORPUSCULAR HEMOGLOBIN (BEAKER) (test code 31.3 pg 25.6-32.2 = 751) MEAN CORPUSCULAR HEMOGLOBIN CONC (BEAKER) (test 33.7 GM/DL 32.2-35.5 code = 752) RED CELL DISTRIBUTION WIDTH (BEAKER) (test code 12.6 % 11.7-14.4 = 412) PLATELET COUNT (BEAKER) (test code = 756) 198 K/CU MM 150-45 0 MEAN PLATELET VOLUME (BEAKER) (test code = 754) 10.9 fL 9.4-12.3 NUCLEATED RED BLOOD CELLS (BEAKER) (test code = 0 /100 WBC 0-0 413) NEUTROPHILS RELATIVE PERCENT (BEAKER) (test code 42 % = 429) LYMPHOCYTES RELATIVE PERCENT (BEAKER) (test code 43 % = 430) MONOCYTES RELATIVE PERCENT (BEAKER) (test code = 8 % 431) EOSINOPHILS RELATIVE PERCENT (BEAKER) (test code 7 % = 432) BASOPHILS RELATIVE PERCENT (BEAKER) (test code = 1 % 437) NEUTROPHILS ABSOLUTE COUNT (BEAKER) (test code = 2.82 K/ L 1.56-6.13 670) LYMPHOCYTES ABSOLUTE COUNT (BEAKER) (test code = 2.90 K/ L 1.18-3.74 414) MONOCYTES ABSOLUTE COUNT (BEAKER) (test code = 0.56 K/ L 0 .24-0.36 415) EOSINOPHILS ABSOLUTE COUNT (BEAKER) (test code = 0.44 K/ L 0.04-0.36 416) BASOPHILS ABSOLUTE COUNT (BEAKER) (test code = 0.04 K/ L 0 .01-0.08 417) IMMATURE GRANULOCYTES-RELATIVE PERCENT (BEAKER) 0 % 0-1 (test code = 2801)
--- OUTSIDE RECORDS SUMMARY | 2019-07-23 17:59 | XMS REPORT | Summary of Care ---
:1960 Author Organization [facility] - [facility] Address [address] [place] [address] Care Team Providers Name Role Phone Lexi San Primary Care Provider Encounter Details Date Type Department Care Team Description 05/11/2019 Hospital Encounter [facility] Karthik Sommers, [facility] Orthopedics - MD Radiology [address] [place] [address] [place] [address] [place], [place] [phone] Allergies Active Allergy Reactions Severity Noted Date [...] filedocumented in this encounter Plan of Treatment Name Type Priority Associated Diagnoses Date/Ti me XR HAND <3 VW LEFT IMAGING Routine Left hand pain 020 4:04 PM 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
--- OUTSIDE RECORDS SUMMARY | 2019-07-23 17:59 | XMS REPORT | Summary of Care ---
:1960 Author Organization [facility] Address [address] [place] [address] Care Team Providers Name Role Phone Lexi San Primary Care Provider Reason for Referral Radiology Services (Routine) Status Reason Specialty Diagnoses / Referred By Referred To Procedures Contact Contact New Request Diagnostic Diagnoses Left hand pain Wayne Sommers Radiology Procedures XR HAND <3 VW YUAN George MD [address] [place] [place] [address] [place] [address] Reason for Visit Reason Comments New Patient Hand Pain Left hand, small finger inju ry DOI:07/2018 Encounter Details Date Type Department Care Team Description 05/11/2019 Office Visit [facility] Orthopaedic Wayne Sommers L eft hand pain Surgery- Carissa George MD (Primary Dx) [address] [place] [address] [place], [place] [phone] Allergies Active Allergy Reactions Severity Noted [...] Comments Blood Pressure 120/89 05/11/2019 3:53 PM DIRECTOR ZONE Pulse 76 05/11/2019 3:53 PM DIRECTOR ZONE Temperature - - Respiratory Rate 18 05/11/2019 3:53 PM DIRECTOR ZONE Oxygen Saturation - - Inhaled Oxygen Concentration - - Weight 63.5 kg (140 lb) 05/11/2019 3:53 PM DIRECTOR ZONE Height 170.2 cm (5' 7") 05/11/2019 3:53 PM DIRECTOR ZONE Body Mass Index 21.93 05/11/2019 3:53 PM DIRECTOR ZONE documented in this encounter Progress Notes Wayne [...] kg (140 lb) Height: 67" (170.2 cm) [id number] - [place], [place] - [facility] [employer]; [employer] Incident occurred: 07/2018 Incident location: home Injury [...] file Gets together: Not on file Attends roman catholic service: Not on file Active member of [...] hardware Plan Removal of painful hardware at [facility] on 05/18/2019. I have discussed the patient's [...] Follow up for results 2 weeks post-op. CTOR ZONE documented in this encounter Plan of Treatment [...] LAB Routine Left hand pain Expe cted: ([id number])(NA, K, CL, CO2, 04/19, Expires: GLUCOSE, BUN, [...] HAND <3 VW LEFT (05/11/2019 4:04 PM DIRECTOR ZONE) Specimen Narrative Performed At This result has an attachment that is no t available. Pin intact left small finger PACS Performing Organization Address City/State/[facility] Phone Number PACS documented in this encounter Visit Diagnoses Diagnosis Left hand pain - Primary Pain in limb documented in this encounter Insurance Payer Benefit Plan / Subscriber ID Effective Dates Phone Addre Type Group [facility] xxxxxxxxx 2019-Present Medicaid COMM PLAN - PLUS MANAGED MEDICAID documented as of this encounter
--- OUTSIDE RECORDS SUMMARY | 2019-07-23 18:00 | XMS REPORT | Summary of Care ---
:1960 Author Organization [facility] Address [address] [place] [address] Care Team Providers Name Role Phone Jaswinder, Lexi Primary Care Provider Reason for Visit Reason Comments LAB WORK Auth/Cert Status Reason Specialty Diagnoses / Procedures Referred By Lexi ardon Referred To Contact Phlebotomy Diagnoses Left hand pain Adc Pob Lab Draw Procedures URINALYSIS BASIC METABOLIC PANEL (NA, K, CL, CO2, GLUCOSE, BUN, CREATININE, CA) Professional Office Building [address] , [address] [place] [address] Phone: Fax: Encounter Details Date Type Department Care Team Description 05/15/2019 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 BASIC METABOLIC PANEL (NA, LAB Routine Left hand pain 05/15/2019 5:20 PM SHAVING MACHINE OPERATOR K, CL, CO2, GLUCOSE, BUN, CREATININE, CA) CBC WITH DIFF LAB Routine Left hand pain 05/15/2019 5:20 PM SHAVING MACHINE OPERATOR C-REACTIVE PROTEIN LAB Routine Left hand pain 020 5:20 PM SHAVING MACHINE OPERATOR SEDIMENTATION RATE LAB Routine Left hand pain 020 5:20 PM SHAVING MACHINE OPERATOR RHEUMATOID FACTOR LAB Routine Left hand pain 05/15/19 20 5:20 PM SHAVING MACHINE OPERATOR CBC WITH DIFFERENTIAL LAB Routine Left hand pain 04/19 5:20 PM SHAVING MACHINE OPERATOR Name Type Priority Associated Diagnoses Order S chedule URINALYSIS LAB Routine Left hand pain Expected: , Expires: 2020 BASIC METABOLIC PANEL (NA, LAB Routine Left hand pain Expected: 05/15/2019, K, CL, CO2, GLUCOSE, BUN, Ex [place]: 05/15/2020 CREATININE, CA) CBC WITH DIFF LAB Routine Left hand pain Expected: , Expires: 2020 C-REACTIVE PROTEIN LAB Routine Left hand pain Expecte d: 05/15/2019, Expires: 2020 SEDIMENTATION RATE LAB Routine Left hand pain Expecte d: 05/15/2019, Expires: 2020 RHEUMATOID FACTOR LAB Routine Left hand pain Expected : 05/15/2019, Expires: 2020 Health Maintenance Due Date Last Done Comments [...] Effective Dates Phone Addre ss Type Group [facility] STAR xxxxxxxxx 2019-Present Medicaid COMM PLAN - PLUS MANAGED MEDICAID documented as of this encounter
--- OUTSIDE RECORDS SUMMARY | 2019-07-23 18:00 | XMS REPORT | Summary of Care ---
:1960 Author Organization [facility] - [facility] Address [address] [place] [address] Care Team Providers Name Role Phone Lexi San Primary Care Provider Reason for Referral (Routine) Status Reason Specialty Diagnoses / Referred By Referred To Procedures Contact Contact New Request Diagnostic Diagnoses Painful orthopaedic hardware Wayne Sommers Radiology Procedures FL TIME OR (NON-REPORTABLE) MD [address] [place] [address] Reason for Visit Auth/Cert Status Reason Specialty Diagnoses / Procedures Referred By C ontact Referred To Contact Surgery Diagnoses Pain due to internal orthopedic prosthetic devices, implants and grafts, initial encounter Painful orthopaedic hardware [T84.84XA] Adc Pre/Pacu/P ost Procedures WI REMOVAL DEEP IMPLANT METACARPAL HARDWARE REMOVAL - [place] REMOVAL DEEP IMPLANT [address] [place] [address] [place] [address] Phone: Fax: Encounter Details Date Type Department Care Team Description 05/18/2019 Hospital Encounter [facility] Wayne Carey Painf [facility] MD Doris hardware [address] [place] [address] [address] [phone] [place] [address] Allergies Active Allergy Reactions Severity Noted Date Comments Metoclopramide Hcl Anaphylaxis 10/11/2016 documented as of this encounter (statuses as of 05/18/2019) Medications Medication Sig Dispensed Refills Start Date End Date Status clonazePAM (KLONOPIN) Take 0.5 mg by 0 Active 0.5 mg tablet mouth 2 (two) times daily. DULoxetine 30 mg Take 60 mg by 0 Active capsule mouth daily. dextroamphetamine-amph Take 10 mg by 0 Active etamine (ADDERALL) 10 mouth every mg tablet morning. Oxycodone 10 mg Tab Take 10 mg by 0 Active mouth. mupirocin (BACTROBAN) Apply to 1 Tube 0 10/11/2016 Active 2 % cream affected area(s) 3 (three) times daily. sulfamethoxazole-trime Take 1 tablet by 20 tablet 0 10/11/2016 Active thoprim 800-160 mg per mouth every 12 tablet [...] mouth 2 (two) times daily. metoprolol succinate Take 25 mg by 0 Active XL 25 mg 24 hr tablet mouth daily. amoxicillin 500 mg Take 500 mg by 0 Active tablet mouth 3 (three) times daily. ibuprofen 200 mg Take 200 mg by 0 Active tablet mouth every 6 (six) hours as needed. acetaminophen (TYLENOL Take 500 mg by 0 Active EXTRA STRENGTH) 500 mg mouth every 6 tablet (six) hours as needed for Pain. aspirin-acetaminophen- Take 1 tablet by 0 Active caffeine (EXCEDRIN mouth every 6 MIGRAINE) 250-250-65 (six) hours as mg per tablet needed for Pain. dextroamphetamine-amph Take 20 mg by 0 Active etamine (ADDERALL) 20 mouth 2 (two) mg tablet times daily. acetaminophen-codeine Take 1 tablet by 28 tablet 0 05/18/2019 05/25/2019 Active 300-30 mg mouth every 6 tabletIndications: (six) hours as Painful orthopaedic needed for Pain hardware (scale 4-6) or Pain (scale 7-10) for up to 7 days. documented as of this encounter (statuses as of 05/18/2019) Active Problems Problem Noted Date Painful orthopaedic hardware 05/12/2019 Overview: Added automatically from request for joanna kang [id number] documented as of this encounter (statuses as of 05/18/2019) Social History Tobacco Use Types Packs/Day Years [...] Sign Reading Time Taken Comments Blood Pressure 111/85 05/18/2019 2:25 PM MANAGER EMPLOYEE RELATIONS Pulse 66 05/18/2019 2:25 PM MANAGER EMPLOYEE RELATIONS Temperature 36.3 C (97.4 F) 05/18/2019 2:03 PM MANAGER EMPLOYEE RELATIONS Respiratory Rate 21 05/18/2019 2:25 PM MANAGER EMPLOYEE RELATIONS Oxygen Saturation 98% 05/18/2019 2:25 PM MANAGER EMPLOYEE RELATIONS Inhaled Oxygen Concentration - - Weight 70.3 kg (155 lb) 05/15/2019 1:00 PM MANAGER EMPLOYEE RELATIONS Height 170.2 cm (5' 7") 05/15/2019 1:00 PM MANAGER EMPLOYEE RELATIONS Body Mass Index 24.28 05/15/2019 1:00 PM MANAGER EMPLOYEE RELATIONS documented in this encounter Discharge Instructions InstructionsNeena Ellis RN - 05/18/2019 Patient Discharge Instructions Discharge date: 05/18/2019 Procedure(s): Procedure(s): METACARPAL HARDWARE REMOVAL Discharge Orders No creams, ointments or topicals to incision Order Comments: No creams, ointments or topicals to incision DO NOT submerge in water Order Comments: DO NOT submerge in water Apply Ice as needed every 45 minutes. Order Comments: Apply Ice as needed every 45 minutes. As Tolerated Discharge Activity: As Tolerated Extremity: Left Upper Extremity (LUE) Extremity: Right Lower Extremity (RLE) Dressing to be kept clean dry and intact for 10 days Order Comments: Dressing to be kept clean dry and intact for 10 days Follow instructions as indicated below: 1. The medication that was used will be acting in your system for the next 24 hours, so you might feel a little drowsy, with impaired judgment and or motor function. This feeling should go wear off. Because the medication is still in your system for the next 24 hours you SHOULD NOT: Drive a car, operate machinery or power tool. Drink any alcohol beverages (including beer or wine). Make any important decisions or sign any legal documents. 2. You should rest the remainder of the day and not engage in any physical activity. Move slowly today. After lying down, sit on the edge of the bed for a moment before standing. YOU ARE RESPONSIBLEFOR HAVING SOMEONE AT HOME WITH YOU DURING THE AFTERNOON AND NIGHT IMMEDIATELY FOLLOWING YOUR SURGERY. Patient should cough and deep breathe every 2-4 hours while awake to avoid respiratory complications. 4. Lifting: No medical restrictions 5. Weight: In general, sudden weight gains or losses should be reported to your provider. Cardiac patients should weigh daily and notify their provider for a weight gain of 3 pounds per day or 5 pounds per week. 6. Tobacco Avoidance: Follow recommendations below 7. Because the medications used could procedure some residual nausea and vomiting after you go home,you should eat lightly today, starting with clear liquids (broth, soft drinks, apple juice, jello) and toast or crackers, progressing to bland solid foods and then to your normal diet as tolerated, unle ss otherwise stated by your surgeon. If you get sick, wait a couple of hours and then begin to eat. After 24 hours the nausea should be gone. 8. You may experience some pain and your physician will advise you on what to take for discomfort. This should be taken as directed. If the pain is not relieved, contact your physician. You may alsohave a sore throat from the airway that was in place. You may uses lozenges, throat spray (such as C hloraseptic), or warm salt water gargles for symptomatic relief. 9. If you feel warm, take your temperature. If it is 101 degrees or above call your physician. 10. If you are unable to urinate within five hours after your procedure, call your physician. 11. The type of surgery performed will determine how much bleeding (if any) to expect. Normally, some spotting might occur. If your dressing pad becomes saturated, notify your physician. Elevate surgical site, if applicable, to reduced swelling and pain. 12. Wound/dressing care: keep clean, dry and intact for 10 day Tips on preventing a surgical site infection.. Dont smoke. It is best to quit at least 30 days before surgery, but quitting after surgery is also helpful. If you are diabetic, keep your blood sugar well controlled. WASH YOUR HANDS. Keep your wound clean and remember to wash your hands before and after contact with the area. All health care workers should also wash their hands or use an alcohol based hand rub prior to examining you. If antibiotics are prescribed, take them as directed. Finish the entire course of antibiotics. Call your doctor if you have signs of infection: ? Increased tenderness at the surgical site ? Red streaks or increased redness of the area ? Bad-smelling discharge from the incision ? Fever of 101F or higher ? General tired feeling that doesnt improve 13. Other discharge instructions: Driving restrictions: No driving for 24 hours 14. Special Instructions: No ointments or medicine to surgical site Call for follow up in 10 14 days Take Home Medications These are medications ordered for you by your healthcare provider. Do not take any other medications or supplements unless advised by your healthcare provider. Current Discharge Medication List START taking these medications Details acetaminophen-codeine 300-30 mg tablet Take 1 tablet by mouth every 6 (six) hours as needed for Pain(scale 4-6) or Pain (scale 7-10) for up to 7 days. Qty: 28 tablet, Refills: 0 Associated Diagnoses: Painful orthopaedic hardware CONTINUE these medications which have NOT CHANGED Details acetaminophen (TYLENOL EXTRA STRENGTH) 500 mg tablet Take 500 mg by mouth every 6 (six) hours as needed for Pain. amoxicillin 500 mg tablet Take 500 mg by mouth 3 (three) times daily. xsujbbe-vecgsxigwbbgq-fgjqjpyx (EXCEDRIN MIGRAINE) 250-250-65 mg per tablet Take 1 tablet by mouth every 6 (six) hours as needed for Pain. !! clonazePAM 1 mg tablet Take 1 mg by mouth 3 (three) times daily. dextroamphetamine-amphetamine (ADDERALL) 20 mg tablet Take 20 mg by mouth 2 (two) times daily. ibuprofen 200 mg tablet Take 200 mg by mouth every 6 (six) hours as needed. metoprolol succinate XL 25 mg 24 hr tablet Take 25 mg by mouth daily. pantoprazole 40 mg EC tablet Take 40 mg by mouth daily. QUEtiapine (SEROQUEL) 50 mg tablet Take 50 mg by mouth 2 (two) times daily. venlafaxine 75 mg tablet Take 75 mg by mouth daily. !! clonazePAM (KLONOPIN) 0.5 mg tablet Take 0.5 mg by mouth 2 (two) times daily. dextroamphetamine-amphetamine (ADDERALL) 10 mg tablet Take 10 mg by mouth every morning. DULoxetine 30 mg capsule Take 60 mg by mouth daily. mupirocin (BACTROBAN) 2 % cream Apply to affected area(s) 3 (three) times daily. Qty: 1 Tube, Refills: 0 Comments: Alexey June PA-C MICHAEL# [id number] NPI# [id number] T# [id number] Supervising / Jose Manuel Malone MD NPI# [id number] Pharmacist may call the ED with an alternative medication suggestion as needed. [facility] for Cheaper options PRN Oxycodone 10 mg Tab Take 10 mg by mouth. sulfamethoxazole-trimethoprim 800-160 mg per tablet Take 1 tablet by mouth every 12 (twelve) hours. Qty: 20 tablet, Refills: 0 Comments: Alexey June PA-C MICHAEL# [id number] [place] Lic.# [id number] NPI# [id number] Supervising / Jose Manuel Malone MD NPI-[id number] Pharmacist may call the ED with an alternative medication suggestion that is covered, available, or affordable PRN check [facility] for Cheaper options PRN !! - Potential duplicate medications found. Please discuss with provider. Follow-up appointments: Your follow up appointment with your surgeon has been made. For questions regarding follow-up instructions call the Healthcare Hotline at or If you experience any of the following symptoms. For worsening symptoms/changing condition/problems or questions: Non-emergency/urgent: Call the Healthcare Hotline at or Emergency: Go to the closest emergency room or call 611 If you receive the patient satisfaction survey by mail please complete and return and let us know how we are doing. TOBACCO AVOIDANCE Exposure to tobacco either from smoking or from second hand (environmental) smoke or smokeless tobacco (snuff) is damaging to your health. This information is to encourage everyone to avoid tobacco exposure. It is recommended that you: ? If you smoke or use smokeless tobacco, we encourage you to quit. ? If you have already quit smoking, continue your good work! ? If you do not smoke or use smokeless tobacco, do not start. ? Avoid secondhand smoke. Additional Resources You may want to contact these organizations for further information on smoking and how to quit. [place] [employer], http://www.lungusa.org/stop-smoking/ [place] [employer], http://www.cancer.org/Healthy/StayAwayfromTobacco/index [place] [employer], http://www.heart.org/HEARTORG/GettingHealthy/QuitSmoking/Quit-Smoking_UCM _001085_SubHomePage.jsp documented in this encounter Plan of Treatment Health Maintenance Due Date Last Done Comments HEPATITIS C (HCV) SCREEN 1960 PNEUMOCOCCAL 0-64 YEARS COMBINED SERIES (1 of 1 - 11/30/1965 PPSV23) DTaP,Tdap,and Td Vaccines (1 - Tdap) 11/30/1970 PAP SMEAR 11/30/1980 Breast Cancer Screening (MAMMOGRAM) 1999 COLONOSCOPY 11/30/2009 Zoster Recombinant Vaccine (SHINGRIX) (1 of 2) 11/30/2009 LUNG CANCER SCREEN: Recommended for age 55-80 with 30 + 12/01/19 15 pack year history INFLUENZA VACCINE (#1) 2018 documented as of this encounter Procedures Procedure Name Priority Date/Time Associated Diagnosis Comme nts FL TIME OR Routine 05/18/2019 2:05 PM Painful orthopaedic R esults for this (NON-REPORTABLE) MANAGER EMPLOYEE RELATIONS hardware procedure a re in the results section. documented in this encounter Results FL TIME OR (NON-REPORTABLE) (05/18/2019 2:05 PM MANAGER EMPLOYEE RELATIONS) Specimen Narrative Performed At These images do not require a Radiology diagnostic rep ort. PACS Performing Organization Address City/State/Zipcode Phone Number PACS documented in this encounter Visit Diagnoses Diagnosis Painful orthopaedic hardware documented in this encounter Administered Medications Medication Order MAR Action Action Date Dose Rate Site ceFAZolin (ANCEF) 1,000 mg in NaCl 0.9% (NS) 50 mL piggyback 1,000 mg, IV Piggyback, O.R. HOLDING ONCE, 1 dose, Sta rting 05/18/19 at 1430, Until Discontinued, 50 mL, DSU Pre-op, Reason for Anti -Infective: Surgical Prophylaxis, Surgical Prophylaxis: Orthopaedic, Durati on of therapy: within 24 hours of surgery FENTanyl PF (SUBLIMAZE (PF)) injection 25 Given 05/18/2019 2:25 PM MANAGER EMPLOYEE RELATIONS 25 mcg mcg 25 mcg, Slow IV Push, Q5MIN PRN, 4 doses, Starting 05/18/19 at 1422, Until Discontinued, Routine, Pain (scale 4-6), PACU lactated ringers IV infusion 500 mL at 75 mL/hr, 500 mL, IV Infusion, CONTIN UOUS, Starting 05/18/19 at 1430, Until Discontinued, Routine, PACU ondansetron (ZOFRAN (PF)) injection 4 mg 4 mg, Slow IV Push, PRN, 1 dose, Startin g 05/18/19 at 1422, Until Discontinued, Routine, Nausea and Vomiting (N/V), PACU sodium chloride 0.9 % irrigation Given 05/18/2019 1:55 PM MANAGER EMPLOYEE RELATIONS 1 ,000 mL Left Hand solution PRN, Starting Sat05/18/19 at 1355, Until Discontinued, Intra-op Medication Order MAR Action Action Date Dose Rate Site lactated ringers IV infusion New Bag 05/18/2019 11:33 AM MANAGER EMPLOYEE RELATIONS 1,000 mL 20 mL/hr 1,000 mL at 20 mL/hr, 1,000 mL, IV Infusion, ONCE, 1 dose, 05/18/19 at 1130, Routine, DSU Pre-op documented in this encounter Insurance Payer Benefit Plan / Subscriber ID Effective Dates Phone Addre ss Type Group [facility] xxxxxxxxx 2019-Present Medicaid COMM PLAN - PLUS MANAGED MEDICAID documented as of this encounter
--- OUTSIDE RECORDS SUMMARY | 2019-07-23 18:00 | XMS REPORT | Summary of Care ---
:1960 Author Organization [facility] - Health Address [address] [place] [address] Care Team Providers Name Role Phone Lexi San Primary Care Provider Encounter Details Date Type Department Care Team Description 05/18/2019 Orders Only [facility] Doctor Unassigned, No [address] [facility] [place] [address] [address] [place] [address] Allergies Active Allergy Reactions Severity Noted Date Comments Metoclopramide Hcl Anaphylaxis 10/11/2016 documented as of this encounter (statuses as of 05/19/2019) Medications Medication Sig Dispensed Refills Start Date [...] as of this encounter (statuses as of 05/19/2019) Active Problems Problem Noted Date Painful orthopaedic hardware 05/12/2019 Overview: Added automatically from request for joanna kang [id number] documented as of this encounter (statuses as of 05/19/2019) Social History Tobacco Use Types Packs/Day Years [...] Procedure Name Priority Date/Time Associated Diagnosis Comme DAY SURGERY - ADC Routine 05/18/2019 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 xxxxxxxxx 2019-Present Medicaid COMM PLAN - PLUS MANAGED MEDICAID documented as of this encounter
--- OUTSIDE RECORDS SUMMARY | 2019-07-23 18:00 | XMS REPORT | Summary of Care ---
:1960 Author Organization [facility] - Health Address [address] [place] [address] Care Team Providers Name Role Phone Lexi San Primary Care Provider Reason for Visit Auth/Cert Status Reason Specialty Diagnoses / Procedures Referred By Lexi ontact Referred To Contact Surgery Diagnoses Pain due to internal orthopedic prosthetic devices, implants and grafts, initial encounter Painful orthopaedic hardware [T84.84XA] Adc Pre/Pacu/P ost Procedures [place] REMOVAL DEEP IMPLANT METACARPAL HARDWARE REMOVAL - [place] REMOVAL DEEP IMPLANT [address] [place], [place] [address] Phone: Fax: Encounter Details Date Type Department Care Team Description 05/18/2019 Anesthesia [facility] [place] Doris Villanueva MD [address] [place] [phone] [facility] Hal Worthington CRNA [address] [place] [phone] [place] [address] [place], [place] [phone] Allergies Active Allergy Reactions Severity Noted Date [...] Added automatically from request for joanna kang [id number] documented as of this encounter (statuses as [...] Sign Reading Time Taken Comments Blood Pressure - - Pulse - - Temperature - - Respiratory Rate 18 05/18/2019 1:59 PM [employer]ER Oxygen Saturation - - Inhaled Oxygen Concentration - - Weight - - Height - - Body Mass Index - - documented in this encounter Plan of Treatment [...] Name Priority Date/Time Associated Diagnosis Comme nts INTUBATION Routine 05/18/2019 1:57 PM Results for this [facility] procedure are i n the results section . documented in this encounter Results Intubation (05/18/2019 1:57 PM [facility]ER) Narrative Performed At Hal Worthington CRNA 05/18/2019 1:57 PM Intubation Urgency: elective Airway not difficult General Information and Staff Patient location during procedure: OR Resident/CURER FOAM RUBBER: Hal Wotrhington CRNA Performed: resident/CURER FOAM RUBBER Indications and Patient Condition Indications for airway management: anest hesia Spontaneous Ventilation: absent Sedation level: deep Preoxygenated: yes Patient position: sniffing MILS maintained throughout Mask difficulty assessment: 1 - vent by mask Final Airway Details Final airway type: supraglottic airway Successful airway: classic Size 4 Number of attempts at approach: 1 Additional Comments Airway dry intact documented in this encounter Administered Medications Medication Order MAR Action Action Date Dose Rate Site dexamethasone (DECADRON PHOSPHATE) Given 05/18/2019 1:51 PM [facility] 4 mg injection Intravenous, ONCE INTRA PROCEDURE, Starting 05/18/19 at 1351, Until 05/18/19 at 1401, Routine, Intra-op FENTanyl PF (SUBLIMAZE (PF)) injection Given 05/18/2019 1:52 PM [facility] 50 mcg Intravenous, ONCE INTRA PROCEDURE, Starting 05/18/19 at 1352, Until 05/18/19 at 1401, Routine, Intra-op Given 05/18/2019 1:45 PM [employer] 50 mcg lactated ringers IV infusion New Bag 05/18/2019 1:42 PM [facility] H[employer] IV Infusion, CONTINUOUS PRN, Starting 05/18/19 at 1342, Until 05/18/19 at 1401, Routine, Intra-op lidocaine 1% (XYLOCAINE) 100 mg/10 mL (1 %) Given 05/18/2019 1:45 PM [employer] H[employer]ER 50 mL injection ONCE INTRA PROCEDURE, Starting 05/18/19 at 1345, Until 05/18/19 at 1401, Routine, Intra-op midazolam (VERSED) injection Given 05/18/2019 1:45 PM [employer] 2 mg IV Push, ONCE INTRA PROCEDURE, Starting 05/18/19 at 1345, Until 05/18/19 at 1401, Routine, Intra-op propofol IV infusion Given 05/18/2019 1:45 PM [employer] 150 mg Intravenous, ONCE INTRA PROCEDURE, Starting 05/18/19 at 1345, Until 05/18/19 at 1401, Routine, Intra-op documented in this encounter Insurance Payer Benefit Plan / Subscriber ID Effective Dates Phone Addre ss Type Group [facility] xxxxxxxxx 2019-Present Medicaid COMM PLAN - PLUS MANAGED MEDICAID documented as of this encounter
--- OUTSIDE RECORDS SUMMARY | 2019-07-23 18:01 | XMS REPORT | Summary of Care ---
:1960 Author Organization [facility] Address [address] [place] [address] Care Team Providers Name Role Phone Lexi San Primary Care Provider Reason for Visit Reason Comments Results Encounter Details Date Type Department Care Team Description 05/29/2019 Telephone [facility] Wayne Sommers MD Results Surgery- [facility] [address] [facility], [place] [address] [place] [phone] [place] [phone] Allergies Active Allergy Reactions Severity Noted Date Comments Metoclopramide Hcl Anaphylaxis 10/11/2016 documented as of this encounter (statuses as of 05/29/2019) Medications Medication Sig Dispensed Refills Start Date [...] tablet (six) hours as needed for Pain. ydplhae-omwtmmsmfyhpm-v Take 1 tablet by 0 Active affeine (EXCEDRIN mouth every 6 MIGRAINE) 250-250-65 mg (six) hours as per tablet needed for Pain. dextroamphetamine-amphe Take 20 mg by 0 Active tamine (ADDERALL) 20 mg mouth 2 (two) tablet times daily. documented as of this encounter (statuses as of 05/29/2019) Active Problems Problem Noted Date Painful orthopaedic hardware 05/12/2019 Overview: Added automatically from request for joanna kang [id number] documented as of this encounter (statuses as of 05/29/2019) Social History Tobacco Use Types Packs/Day Years [...] Treatment Date Type Specialty Care Team Description 06/02/2019 Office Visit Orthopedic Surgery Luis Alberto Thurman, PAC [address] [place] [phone] 06/10/2019 Office Visit Cardiology Janice Desai M D [address] [place] [phone] Health Maintenance Due Date Last Done Comments [...] (#1) 2018 documented as of this encounter Results Not on filedocumented in this encounter Insurance Payer Benefit Plan / Subscriber ID Effective Dates Phone Addre ss Type Group [facility] xxxxxxxxx 2019-Present Medicaid COMM PLAN - PLUS MANAGED MEDICAID documented as of this encounter
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
--- OUTSIDE RECORDS SUMMARY | 2019-07-23 18:01 | XMS REPORT | Summary of Care ---
:1960 Author Organization [facility] Address [address] [place] [address] Care Team Providers Name Role Phone Lexi San Primary Care Provider Encounter Details Date Type Department Care Team Description 05/25/2019 Orders Only [facility] Doctor Unassigned, No [address] [facility] [place] [address] [address] [place] [address] Allergies Active Allergy Reactions Severity Noted Date Comments Metoclopramide Hcl Anaphylaxis 10/11/2016 documented as of this encounter (statuses as of 05/25/2019) Medications Medication Sig Dispensed Refills Start Date [...] as of this encounter (statuses as of 05/25/2019) Active Problems Problem Noted Date Painful orthopaedic hardware 05/12/2019 Overview: Added automatically from request for joanna kang [id number] documented as of this encounter (statuses as of 05/25/2019) Social History Tobacco Use Types Packs/Day Years [...] Treatment Date Type Specialty Care Team Description 06/10/2019 Office Visit Cardiology Janice Desai M D [address] [place] [address] 15 [phone] Health Maintenance Due Date Last Done Comments [...] Name Priority Date/Time Associated Diagnosis Comme nts EXTERNAL PROVIDER Routine 05/25/2019 12:01 AM CDT RECORDS documented in this encounter Results Not on filedocumented in this encounter Insurance Payer Benefit Plan / Subscriber ID Effective Dates Phone Addre ss Type Group [facility] xxxxxxxxx 2019-Present Medicaid COMM PLAN - PLUS MANAGED MEDICAID documented as of this encounter
--- OUTSIDE RECORDS SUMMARY | 2019-07-23 18:01 | XMS REPORT | Summary of Care ---
:1960 Author Organization [facility] Address [address] [place] [address] Care Team Providers Name Role Phone Lexi San Primary Care Provider Reason for Referral Radiology Services (Routine) Status Reason Specialty Diagnoses / Referred By Referred To Procedures Contact Contact New Request Diagnostic Diagnoses Thyromegaly Karyna, Radiology Procedures US HEAD NECK Jossie Meléndez MD [address] [place] [address] [facility] [place] [address] (Routine) Status Reason Specialty Diagnoses / Referred By Referred To Procedures Contact Contact New Request Dermatology Diagnoses Atypical rash Jossie Troncoso Procedures CONSULT/REFERRAL DERMATOLOGY MD Rika [address] [place] [address] [place] [phone] Reason for Visit Reason Comments Skin Problem LAB WORK Encounter Details Date Type Department Care Team Description 06/01/2019 Office Visit [facility] Family Karyna, Jossie Atyp ical rash (Primary Dx); Medicine - Carissa Meléndez MD Thyromegalmarisol; [address] [place] [address] [place] [address] [place] [phone] Allergies Active Allergy Reactions [...] Added automatically from request for joanna kang [id number] documented as of this encounter (statuses as [...] by scratching (the sores may become infected) [place] created by mites traveling under the skin, [...] continues for more than2 weeks after treatment. [employer] last reviewed this educational content on 08/17/201519998550-7834 [employer]. [address] [place] [address]. All rights reserved. This information is not [...] Baird-Psychiatry and she is followed by a production support specialist for chronic musculoskeletal pain. Skin Problem [...] mg by mouth 3 (three) times daily. rwmmylh-imjoeaqcbwgjj-jnvmkbqk (EXCEDRIN MIGRAINE) 250-250-65 mg per tablet Take [...] Left 05/18/2019 Surgeon: Wayne Sommers MD; Location[place] [facility] Social History Socioeconomic History Marital status: Spouse [...] file Gets together: Not on file Attends yazidism service: Not on file Active member of [...] skin problem. The available medical records in [facility] were reviewed. Willrequest the patient's outside [...] skin irritations; and she can try an prab-jsu-pvhpuht antihistamine to relieve the allergic symptoms caused [...] at a future visit. If applicable, the [facility] database was accessed to review any controlled substance prescription claims data. If the patient is taking prescribed medications, the [employer] prescription claims data in [employer] was reviewed to assess patient compliance with the medication treatment plan. Follow-up: Return soon for a fasting wellness visit. Follow-up sooner if any problems or concerns. Scribe Attestation Ana Santana , am scribing for, and in the presence of, Jossie Trnocoso MD who performed the services described here-in. [...] processed according to instructions and sent to [facility] laboratories per lab order on 06/01/19: LT BLUE SST RED LAV PPT DK GREEN (LiHep) DK GREEN (SodH) KNAPP DK BLUE (K2) DK BLUE (S) ACD Blood Culture NIPT/NTD documented in this encounter Plan of Treatment Date Type Specialty Care Team Description 06/02/2019 Office Visit Orthopedic Surgery Luis Alberto Thurman S, PAC [address] [phone] 06/10/2019 Office Visit Cardiology Janice Desai M D [address] [place] [address] [place] [address] 15 Name Type Priority Associated Diagnoses Order [...] Effective Dates Phone Addre ss Type Group [facility] xxxxxxxxx 2019-Present Medicaid COMM PLAN - PLUS MANAGED MEDICAID documented as of this encounter
--- OUTSIDE RECORDS SUMMARY | 2019-07-23 18:02 | XMS REPORT | Summary of Care ---
:[address] [facility] - [facility] Address [address] [place] [address] Care Team Providers Name Role Phone Jaswinder Lexi Primary Care Provider Reason for Visit Reason Comments Notification The patient had a medication sent to [facility] and is requesting authorization. I informed he r that it's not something normally done in the clinic, she can call her insurance to see if there is something similar that can be prescrib ed or she may have to pay out of pocket. Please call if unable to aut horize Encounter Details Date Type Department Care Team Description 06/08/2019 Telephone [facility] Orthopaedic Wayne Sommers otification (The Surgery- Carissa George MD patient had a medication [address] sent to [facility] and [place] [address] [place] [address] [address] [place], [place] authorization. I [phone] informed her that it's [phone] not something normally [phone] done in the cli christiane, she (Fax) can call her in surance to see if there is something simil ar that can be prescrib ed or she may have to pay out of pocket. Please call if unable to autho rize) Allergies Active Allergy Reactions Severity Noted Date Comments Metoclopramide Hcl Anaphylaxis 10/11/2016 documented as of this encounter (statuses as of 06/08/2019) Medications Medication Sig Dispensed Refills Start Date End Date Status mupirocin (BACTROBAN) 2 Apply to 1 Tube 0 10/11/2016 Active % cream affected area(s) 3 (three) times daily. venlafaxine 75 [...] 25 mg 24 hr tablet mouth daily. ibuprofen 200 mg tablet Take 200 mg by 0 Active mouth every 6 (six) hours as needed. acetaminophen (TYLENOL Take 500 mg by 0 Active EXTRA STRENGTH) 500 mg mouth every 6 tablet (six) hours as needed for Pain. xhtylhb-dphjmjigedoew-x Take 1 tablet by 0 Active affeine (EXCEDRIN mouth every 6 MIGRAINE) 250-250-65 mg (six) hours as per tablet needed for Pain. dextroamphetamine-amphe Take 20 mg by 0 Active tamine (ADDERALL) 20 mg mouth 2 (two) tablet times daily. permethrin (ELIMITE) 5 Apply from head 60 g 1 06/01/2019 Active % creamIndications: to toe, leave on Atypical rash for 8-14 hours, then wash off. May repeat in 2 weeks if needed. albuterol sulfate Inhale. 0 Ac tive (PROAIR HFA INHALE) diclofenac 75 mg EC Take 1 tablet by 60 tablet 0 06/04/2019 Active tablet mouth 2 (two) times daily with meals. documented as of this encounter (statuses as of 06/08/2019) Active Problems Problem Noted Date ADHD 06/01/2019 Arthritis 06/01/2019 Anxiety 06/01/2019 GERD (gastroesophageal reflux disease) 06/01/2019 Painful orthopaedic hardware 05/12/2019 Overview: Added automatically from request for joanna pearl [id number] documented as of this encounter (statuses as of 06/08/2019) Social History Tobacco Use Types Packs/Day Years [...] Office Visit Cardiology Janice Desai M D [address] [place] [address] 15 Health Maintenance Due Date Last Done Comments [...] Effective Dates Phone Addre ss Type Group [facility] xxxxxxxxx 2019-Present Medicaid COMM PLAN - PLUS MANAGED MEDICAID documented as of this encounter
--- OUTSIDE RECORDS SUMMARY | 2019-07-23 18:02 | XMS REPORT | Summary of Care ---
:1960 Author Organization [facility] Address [address] [place] [address] Care Team Providers Name Role Phone Lexi San Primary Care Provider Reason for Visit Reason Comments Assessment stitch came out Results Encounter Details Date Type Department Care Team Description 06/01/2019 Telephone [facility] Surgical Wayne Sommers (stitch came Specialties - [place] on L, out ); Results [address] [facility] [address] [facility] [address] [place] [address] [place], [place] [phone] Allergies Active Allergy Reactions Severity Noted Date Comments Metoclopramide Hcl Anaphylaxis 10/11/2016 documented as of this encounter (statuses as of 06/03/2019) Medications Medication Sig Dispensed Refills Start Date [...] tablet (six) hours as needed for Pain. workefq-gopbnhmvylsbh-p Take 1 tablet by 0 Active affeine [...] Inhale. 0 Ac tive (PROAIR HFA INHALE) documented as of this encounter (statuses as of 06/03/2019) Active Problems Problem Noted Date ADHD 06/01/2019 Arthritis 06/01/2019 Anxiety 06/01/2019 GERD (gastroesophageal reflux disease) 06/01/2019 Painful orthopaedic hardware 05/12/2019 Overview: Added automatically from request for joanna kang [id number] documented as of this encounter (statuses as of 06/03/2019) Social History Tobacco Use Types Packs/Day Years [...] Office Visit Cardiology Janice Desai M D [address] [place] [address] [phone] Health Maintenance Due Date Last Done Comments [...] Effective Dates Phone Addre ss Type Group [facility] xxxxxxxxx 2019-Present Medicaid COMM PLAN - PLUS MANAGED MEDICAID documented as of this encounter
--- OUTSIDE RECORDS SUMMARY | 2019-07-23 18:02 | XMS REPORT | Summary of Care ---
:1960 Author Organization [facility] Address [address] [place] [address] Care Team Providers Name Role Phone Jaswinder Lexi Primary Care Provider Reason for Referral (Routine) Status Reason Specialty Diagnoses / Referred By Referred To Procedures Contact Contact New Request Cardiology Diagnoses Palpitations Janice Desai MD Procedures ECHO ROUTINE W/DOPPLER COLOR Preferred Location: [facility] [address] [place] [address] [address] [place], [place] [address] (Routine) Status Reason Specialty Diagnoses / Referred By Referred To Procedures Contact Contact New Request Cardiology Diagnoses Palpitations Janice Desai MD Procedures Cardiac Monitoring 48 hours [address] [facility] [address] [place], [place] [address] Reason for Visit Reason Comments Palpitations Encounter Details Date Type Department Care Team Description 06/10/2019 Telemedicine Visit [facility] Janice Desai Palpita tions (Primary Dx); Cardiology- Anxiety; [address] Tachycardia; [address] [place] [address] [place] [address] [phone] Allergies Active Allergy Reactions Severity Noted Date Comments Metoclopramide Hcl Anaphylaxis 10/11/2016 documented as of this encounter (statuses as of 06/10/2019) Medications Medication Sig Dispensed Refills Start Date [...] mg mouth 2 (two) tablet times daily. ibuprofen 200 mg Take 200 mg 0 [...] tive (PROAIR HFA INHALE) diclofenac 75 mg Take 1 tablet 60 tablet 0 06/04/2019 Active EC tablet by mouth 2 (two) times daily with meals. metoprolol Take 1 tablet 90 tablet 1 06/10/2019 Acti ve succinate XL 25 mg by mouth 24 hr daily. tabletIndications: Palpitations metoprolol Take 25 mg by 0 Disco ntinued succinate XL 25 mg mouth daily. 0 (Reorder) 24 hr tablet documented as of this encounter (statuses as of 06/10/2019) Active Problems Problem Noted Date ADHD 06/01/2019 Arthritis 06/01/2019 Anxiety 06/01/2019 GERD (gastroesophageal reflux disease) 06/01/2019 Painful orthopaedic hardware 05/12/2019 Overview: Added automatically from request for joanna kang [id number] documented as of this encounter (statuses as of 06/10/2019) Social History Tobacco Use Types Packs/Day Years [...] Signs Not on filedocumented in this encounter Progress Notes Janice Desai MD - 06/10/2019 2:40 PM CDT CARDIOLOGY CLINIC NOTE 06/10/2019 Reason for Referral/Presenting Complaint: palpitations PCP: Satish San History of Present Illness: Lilian Quinteros is a 58 years old female with history of anxiety and panic attacks. In Summer of 2018 she had 1 episode of palpitations with racing heart and syncope. She felt warm with dizziness. Seen by a access registrar. She stated that she was put on Toprol XL but did not have ECHO etc. Currently she has daily palpitations lasting 15 mins each time. No further syncope. Still smoking. Cardiovascular testing: Review of Systems: General: (-) fever, (-) chills, (-) weight change, (-) dizziness, (-) fatigue Skin: (-) rash HEENT: (-) headache, (-) change in vision Neck: (-) difficulty swallowing Heme: negative Resp: (-) cough, (-) dyspnea on exertion Cardio: (-) chest pain, (+) palpitations, (-) syncope GI: (-) vomiting, (-) diarrhea : negative Endo: (-) diabetes, (-) thyroid disease Neuro: (-) numbness, (-) tingling, (-) weakness Back: (-) pain CHRISTOPHER: (-) muscle pain, (-) claudication Psych: (-) anxiety, (-) depression Past Medical History: Past Medical History: Diagnosis Date ADHD Allergic rhinitis Anxiety Arrhythmia Asthma Autoimmune disorder Depression GERD (gastroesophageal reflux disease) Hiatal hernia History of headache History of irregular heartbeat Hx of hepatitis C Hypertension Osteoporosis Panic attack RA (rheumatoid arthritis) Current Medications: Current Outpatient Medications Medication Sig Dispense Refill metoprolol succinate XL 25 mg 24 hr tablet Take 1 tablet by mouth daily. 90 tablet 1 diclofenac 75 mg EC tablet Take 1 tablet by mouth 2 (two) times daily with meals. 60 tablet 0 albuterol sulfate (PROAIR HFA INHALE) Inhale. permethrin (ELIMITE) 5 % cream Apply from head to toe, leave on for 8-14 hours, then wash off. May repeat in 2 weeks if needed. 60 g 1 acetaminophen (TYLENOL EXTRA STRENGTH) 500 mg tablet Take 500 mg by mouth every 6 (six) hours asneeded for Pain. hbuxlte-svtiymmpmzztq-ivagolht (EXCEDRIN MIGRAINE) 250-250-65 mg per tablet Take 1 tablet by mouth every 6 (six) hours as needed for Pain. clonazePAM 1 mg tablet Take 1 mg by mouth 3 (three) times daily. dextroamphetamine-amphetamine (ADDERALL) 20 mg tablet Take 20 mg by mouth 2 (two) times daily. ibuprofen 200 mg tablet Take 200 mg by mouth every 6 (six) hours as needed. pantoprazole 40 mg EC tablet Take 40 mg by mouth daily. QUEtiapine (SEROQUEL) 50 mg tablet Take 50 mg by mouth 2 (two) times daily. venlafaxine 75 mg tablet Take 75 mg by mouth daily. mupirocin (BACTROBAN) 2 % cream Apply to affected area(s) 3 (three) times daily. 1 Tube 0 No current facility-administered medications for this visit. Social History: Social History Socioeconomic History Marital status: Spouse [...] file Gets together: Not on file Attends hoahaoism service: Not on file Active member of [...] file Social History Narrative Not on file Family History Family History Problem Relation Age of Onset Breast Cancer Mother High cholesterol Mother Diabetes Mother Heart Mother Depression Mother Prostate Cancer Father Physical Examination: Constitutional: Alert and in no distress Respiratory: Breathing comfortably Neurology: Answers questions appropriately Assessment/Plan: ICD-10-CM ICD-9-CM 1. Palpitations R00.2 785.1 2. Anxiety F41.9 300.00 3. Tachycardia R00.0 785.0 4. Syncope and collapse R55 780.2 Her palpitations, tachycardia and syncope seem to be due to anxiety and panic attacks. Better controlled with Toprol XL. Will refill. Given daily palpitations, will get a Holter and ECHO. Patient was counseled for lifestyle modifications including: diet, exercise, weight loss and smokingcessation. RTC 3 months Telehealth service ? Verbal consent obtained from patient Lilian Quinteros for telehealth sevice provided ? My location: [facility] cardiology clinic ? Patient location: Home ? Format: Telephone ? A total of 30 minutes spent on the telephone/chart review with the patient Janice Desai MD, FAC, SHOE Operations Administrator, Division of Cardiology [facility] documented in this encounter Plan of Treatment Name Type Priority Associated Diagnoses Order S chedule Cardiac Monitoring HEART STATION Routine Palpitations 1 Occurr ences 48 hours starting 2019 until 0 Health Maintenance Due Date Last Done Comments [...] filedocumented in this encounter Visit Diagnoses Diagnosis Palpitations - Primary Anxiety Anxiety state, unspecified Tachycardia Tachycardia, unspecified Syncope and collapse documented in this encounter Insurance Payer Benefit Plan / Subscriber ID Effective Dates Phone Addre ss Type Group [facility] xxxxxxxxx 2019-Present Medicaid COMM PLAN - PLUS MANAGED MEDICAID documented as of this encounter
--- OUTSIDE RECORDS SUMMARY | 2019-07-23 18:02 | XMS REPORT | Summary of Care ---
:1960 Author Organization [facility] - [facility] Address [address] [place] [address] Care Team Providers Name Role Phone Lexi San Primary Care Provider Reason for Visit Reason Comments Results Encounter Details Date Type Department Care Team Description 06/02/2019 Telephone [facility] Orthopaedic Wayne Sommers MD Results Surgery- [place] [address] [facility], [place] [address] [place] [address] [address] [place] [phone] Allergies Active Allergy Reactions Severity Noted Date Comments Metoclopramide Hcl Anaphylaxis 10/11/2016 documented as of this encounter (statuses as of 06/04/2019) Medications Medication Sig Dispensed Refills Start Date [...] tablet (six) hours as needed for Pain. xuksgim-sclojbsrbreii-x Take 1 tablet by 0 Active affeine [...] as of this encounter (statuses as of 06/04/2019) Active Problems Problem Noted Date ADHD 06/01/2019 Arthritis 06/01/2019 Anxiety 06/01/2019 GERD (gastroesophageal reflux disease) 06/01/2019 Painful orthopaedic hardware 05/12/2019 Overview: Added automatically from request for joanna pearl [id number] documented as of this encounter (statuses as of 06/04/2019) Social History Tobacco Use Types Packs/Day Years [...] Treatment Date Type Specialty Care Team Description 06/08/2019 Appointment Radiology Damien Troncoso MD [address] [place] [phone] 06/10/2019 Office Visit Cardiology Janice Desai M D [address] [place] [address] [phone] Health Maintenance Due Date Last Done Comments [...] Effective Dates Phone Addre ss Type Group [facility] xxxxxxxxx 2019-Present Medicaid COMM PLAN - PLUS MANAGED MEDICAID documented as of this encounter
--- OUTSIDE RECORDS SUMMARY | 2019-07-23 18:03 | XMS REPORT | Summary of Care ---
:1960 Author Organization [facility] Address [address] [place] [address] Care Team Providers Name Role Phone Rika Troncoso MD Primary Care Provider Reason for Referral MRI/CAT Scan (STAT) Status Reason Specialty Diagnoses / Referred By Referred To Procedures Contact Contact New Request Diagnostic Diagnoses Intractable acute post-traumatic headache Worst headache of life Injury of head, initial encounter Karyna, Radiology Procedures CT HEAD WO CONTRAST Jossie Meléndez MD [facility] [place] [facility] [place] [address] Reason for Visit Reason Comments Headache Encounter Details Date Type Department Care Team Description 06/15/2019 Telemedicine Visit [facility] Jossie Troncoso Intr actable acute post-traumatic headache (Primary Dx); Pediatric and Adult MD Rika Atypical rash; Primary Care- [facility] D R Worst headache of life; [place], [place] Injury of head, initial enco unter [address] [facility] [address] , [address] [place], [place] [phone] [address] (Fax) [phone] Allergies Active Allergy Reactions Severity Noted Date Comments Metoclopramide Hcl Anaphylaxis 10/11/2016 documented as of this encounter (statuses as of 06/15/2019) Medications Medication Sig Dispensed Refills Start Date [...] mg mouth 2 (two) tablet times daily. acetaminophen Take 500 mg 0 Acti ve [...] by mouth 24 hr daily. tabletIndications: Palpitations ivermectin 1 % Apply qdaily 45 g 0 06/15/2019 A ctive creamIndications: to affected Atypical rash skin methocarbamol 500 Take 1 tablet 40 tablet 0 06/15/2019 Active mg by mouth 4 tabletIndications: (four) times Intractable acute daily as post-traumatic needed headache, Worst (muscle pain headache of life, or spasm). Injury of head, initial encounter ibuprofen 600 mg Take 1 tablet 45 tablet 0 06/15/2019 Active tabletIndications: by mouth 3 Intractable acute (three) times post-traumatic daily with headache, Worst meals as headache of life, needed Injury of head, (mild-moderat initial encounter e pain). ibuprofen 200 mg Take 200 mg 0 D iscontinued tablet by mouth 0 (Duplicate ) every 6 (six) hours as needed. documented as of this encounter (statuses as of 06/15/2019) Active Problems Problem Noted Date ADHD 06/01/2019 Arthritis 06/01/2019 Anxiety 06/01/2019 GERD (gastroesophageal reflux disease) 06/01/2019 Painful orthopaedic hardware 05/12/2019 Overview: Added automatically from request for joanna kang [id number] documented as of this encounter (statuses as of 06/15/2019) Social History Tobacco Use Types Packs/Day Years [...] Signs Not on filedocumented in this encounter Patient Instructions Patient InstructionsAna Rosario R - 06/15/2019 4:45 PM CDT Patient Education Self-Care for Headaches Most headaches aren't serious and can be relieved with self-care. But some headaches may be a sign of another health problem like eye trouble or high blood pressure. To find the best treatment, learn what kind of headaches you get. For tension headaches, self-care will usually help. To treat migraines, ask yourhealthcare providerfor advice. It is also possible to get both tension and migraine headaches. Self-care involves relieving the pain and avoiding headache triggers if you can. Ways to reduce pain and tension Try these steps: Apply a cold compress or ice pack to the pain site. Drink fluids. If nausea makes it hard to drink, try sucking on ice. Rest. Protect yourself from bright light and loud noises. Calm your emotions by imagining a peaceful scene. Massage tight neck, shoulder, and head muscles. To relax muscles, soak in a hot bath or use a hot shower. Use medicines Aspirin or other ybfu-swz-lcmzois pain medicines, such as ibuprofen and acetaminophen, can relieve headache. Remember: Never give aspirin to anyone 18 years old or younger because of the risk of developing Syeda syndrome. Use pain medicines only when needed. Certain prescription medicines, if taken toooften, can lead to rebound headaches. Check with your healthcare provider or pharmacist about your medicines. Track your headaches Keeping a headache diary can help you and yourhealthcare provideridentify what's causing your headaches: Note when each headache happens. Identify your activities and the foods you've eaten6 to 8hours before the headache began. Look for any trends or "triggers." Signs of tension headache Any of the following can be signs: Dull pain or feeling of pressure in a tight band around your head Pain in your neck or shoulders Headache without a definite beginning or end Headache after an activity such as driving or working on a computer Signs of migraine Any of the following can be signs: Throbbing pain on one or both sides of your head Nausea or vomiting Extreme sensitivity to light, sound, and smells Bright spots, flashes, or other visual changes Pain or nausea so severe that you can't continue your daily activities Call yourhealthcare provider If you have any of the following symptoms, contact your healthcare provider: A headache that lingers after a recent injury or bump to the head. A fever with a stiff neck or pain when you bend your head toward your chest. A headache along with slurred speech, changes in your vision, or numbness or weakness in your arms or legs. A headache for longer than3 days. Frequent headaches,especially in the morning. Headaches with seizures Seek immediate medical attention if you have a headache that you would call "the worst headache you have ever had." [employer] last reviewed this educational content on 05/16/201719995438-3455 The Assignment Editor. [address] [place] [id number]. All rights reserved. This information is not intended as a substitute for professional medical care. Always follow your healthcare professional's instructions. documented in this encounter Progress Notes Jossie Troncoso MD - 06/15/2019 4:45 PM CDT TELEHEALTH NOTE Verbal consent obtained from Patient: Lilian Quinteros for telehealth services provided below. Communication with patient was conducted via telephone (audio). Other participants in this telehealth encounter: None. Location of Patient: Home. Location of Provider: Office. Date of Service: 06/15/2019 CC: Chief Complaint Patient presents with Headache HPI Lilian Quinteros is a 58 year old who participated in a Telehealth visit today for headaches and sheexclaims she needs an MRI. She also would like to f/u on the skin rash she was seen for on 06/01/2019 (see progress note). She continues to see her Psychiatrist (for management of ADHD, depression, an anxiety) and recently had her medications adjusted. Headache Pain location: Generalized Quality: Sharp Radiates to: Does not radiate Severity currently: 810 Severity at highest: 10/10 Onset quality: Sudden Duration: 2 weeks (started after a fall with head trauma) Timing: Constant Progression: Unchanged Chronicity: New Similar to prior headaches: no Context comment: + fall with head trauma Relieved by: Nothing Ineffective treatments: NSAIDs, acetaminophen and resting in a darkened room Associated symptoms: fatigue, neck pain, neck stiffness and weakness (generalized) Associated symptoms: no abdominal pain, no back pain, no blurred vision, no congestion, no cough, nodiarrhea, no drainage, no ear pain, no eye pain, no facial pain, no fever, no focal weakness, no hearing loss, no loss of balance, no myalgias, no nausea, no near-syncope, no numbness, no paresthesias,no photophobia, no seizures, no sinus pressure, no sore throat, no swollen glands, no syncope, no tingling, no URI, no visual change and no vomiting Associated symptoms comment: + insomnia Rash Location: Face Facial rash location: Face Quality: painful and redness Pain details: Quality: Sore Severity: Moderate Duration: years. Progression: Waxing and waning Chronicity: Chronic Relieved by: she says the only thing that will clear it up is Ivermectin cream which was prescribed to her in the past by a PA at a [place] urgent care facility, she begs to be prescribed this again stating she knows she has a parasite infection. Ineffective treatments: Antihistamines, antibiotic cream, moisturizers, anti- itch cream, OTC analgesics, topical steroids and anti-fungal cream (Elimite prescribed last visit didn't help the rash) Associated symptoms: fatigue and headaches Associated symptoms: no abdominal pain, no diarrhea, no fever, no hoarse voice, no myalgias, no nausea, no periorbital edema, no shortness of breath, no sore throat, no throat swelling, no tongue swelling, no URI, not vomiting and not wheezing Allergies Allergen Reactions Reglan [Metoclopramide Hcl] Anaphylaxis Current Outpatient Medications on File Prior to Visit Medication Sig Dispense Refill metoprolol succinate XL [...] every 6 (six) hours asneeded for Pain. sclydjh-necsfqrkeikqo-kcxhlhsz (EXCEDRIN MIGRAINE) 250-250-65 mg per tablet Take [...] 1 Tube 0 No current facility-administered medications on file prior to visit. Past Medical History: Diagnosis Date ADHD Allergic [...] Left 05/18/2019 Surgeon: Wayne Sommers MD; Location: [facility] Location Family History Problem Relation Age of Onset Breast Cancer Mother High cholesterol Mother Diabetes Mother Heart Mother Depression Mother Prostate Cancer Father Social History Socioeconomic History Marital status: Spouse [...] file Social History Narrative Not on file Review of Systems Constitutional: Positive for fatigue. Negative for fever. HENT: Negative. Negative for congestion, ear pain, hearing loss, hoarse voice, postnasal drip, sinus pressure and sore throat. Eyes: Negative. Negative for blurred vision, photophobia and pain. Respiratory: Negative. Negative for cough, shortness of breath and wheezing. Cardiovascular: Negative. Negative for syncope and near-syncope. Gastrointestinal: Negative. Negative for abdominal pain, diarrhea, nausea and vomiting. Genitourinary: Negative. Musculoskeletal: Positive for neck pain and neck stiffness. Negative for back pain and myalgias. Skin: Positive for rash. Neurological: Positive for weakness (generalized) and headaches. Negative for focal weakness, seizures, numbness, paresthesias and loss of balance. Psychiatric/Behavioral: Positive for dysphoric mood and sleep disturbance. The patient is nervous/anxious. Endocrine: Endocrine negative Vital signs Level of pain 8. Physical Exam Constitutional: She is oriented to person, place, and time. No distress. Pulmonary/Chest: No stridor. No respiratory distress. No audible adventitious breath sounds Neurological: She is alert and oriented to person, place, and time. Answers questions appropriately Psychiatric: Her mood appears anxious. Her speech is rapid and/or pressured. She is agitated. Thought content is delusional (delusions of parasitosis??). Thought content is not paranoid. Cognition and memory are normal. She exhibits a depressed mood. She expresses no homicidal and no suicidal ideation. LABS: CBC CMP WBC (10*3/L) Date Value 05/15/2019 5.84 NA (mmol/L) Date Value 05/15/2019 139 RBC (10*6/L) Date Value 05/15/2019 4.14 K (mmol/L) Date Value 05/15/2019 4.3 PLT (10*3/L) Date Value 05/15/2019 235 CALCIUM (mg/dL) Date Value 05/15/2019 9.5 HGB (g/dL) Date Value 05/15/2019 12.9 CL (mmol/L) Date Value 05/15/2019 103 HCT (%) Date Value 05/15/2019 38.3 BUN (mg/dL) Date Value 05/15/2019 16 LIPID PANEL CREATININE (mg/dL) Date Value 05/15/2019 0.82 No results found for: CHOL GLUCOSE (mg/dL) Date Value 05/15/2019 91 No results found for: LDL CO2 TOTAL (mmol/L) Date Value 05/15/2019 27 No results found for: HDL No results found for: ALB No results found for: TRIG No results found for: TPRO TSH No results found for: BILIT TSH (mIU/L) Date Value 06/01/2019 0.71 No components found for: BILIUNCOM No results found for: BILICONJ No results found for: ALT No results found for: AST No results found for: ALKPHOS ASSESSMENT/PLAN Diagnoses and all orders for this visit: Intractable acute post-traumatic headache; Worst headache of life; Injury of head, initial encounter The patient refuses evaluation at the ER but agrees to STAT neuroimaging. Recommended medications for head pain: Tylenol for mild-moderate pain, ibuprofen PRN pain not relieved by Tylenol (she was thoroughly warned about the CVS, GI, and renal risks of NSAIDs and was advised to only use the ibuprofen sparingly), and methocarbamol PRN. Strong ER precautions given for severe head pain, dizziness, focal weakness, visual changes, fever, severe neck pain/stiffness, n/v, etc. - CT HEAD WO CONTRAST; Future - methocarbamol 500 mg tablet; Take 1 tablet by mouth 4 (four) times daily as needed (muscle pain or spasm). - ibuprofen 600 mg tablet; Take 1 tablet by mouth 3 (three) times daily with meals as needed (mild-moderate pain). 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 She is convinced that another Rx for ivermectin will "clear-up" her skin completely in time for Leticia and literally pleaded with me to prescribeit. Given all of the COVID-[address], seeing a Optician Apprentice may be difficult during this time, so I gave in and escribed the topical ivermectin feeling like the benefits outweigh any risk to the patient. I was adamant with her that I don't think her issue is parasitic and that seeing a Optician Apprentice is very important for a definitive diagnosis and treatment plan, and she voiced understanding of this and agrees to schedule an appointment w/ Derm once the COVID-19 restrictions have been lifted and possibly before for a Telehealth visit w/ video capability. Continued psychiatric follo w-up was stressed. - ivermectin 1 % cream; Apply qdaily to affected skin Plan of care, desired health behaviors, goals, Ddx, and any prescribed medications were discussed with the patient. I spent 26 minute(s) conducting this Telehealth encounter with the patient. Education resources and self- management tools were provided is the AVS which is accessible through [employer]. Patient/guardian/family verbalized understanding and agrees to the plan of care. Barriers to care:None. Ability to manage care: Good. Advanced care planning (living will) information was not given/offered to the patient to review for discussion at a future visit. If applicable, the [facility] database was accessed to review any controlled substance prescription claims data. If the patient is taking prescribed medications, the [employer] prescription claims data in [employer] was reviewed to assess patient compliance with the medication treatment plan. COVID-19 precautions given including frequent handwashing, social distancing, cleaning and disinfecting, indications for testing, etc. Follow-up: Return if symptoms worsen or fail to improve. Return for routine care as scheduled or previously advised. Recommended an annual wellness physical for preventive health maintenance. Scribe Attestation I, Ana Rosario , am scribing for, and in the presence of, Jossie Troncoso MD who performed the services described here-in. Ana Rosario, June 15, 2019, 2:57 PM Physician Attestation I, Jossie Troncoso MD, personally performed the services described in this documentation , as scribed by, Ana Rosario in my presence and it is both accurate and complete. Jossie Troncoso MD June 15, 2019, 2:57 PM documented in this encounter Plan of Treatment Date Type Specialty Care Team Description 08/11/2019 Laboratory Only Cardiology Pc, Adc Echo Room 1 - 09/14/2019 Office Visit Cardiology Janice Desai M D [address] [address] 12/14/2019 Office Visit Cardiology Janice Desai M D [address] [address] [phone] Name Type Priority Associated Diagnoses Order S chedule CT HEAD WO CONTRAST IMAGING STAT Intractable acute Exp ected: 06/15/2019, post-traumatic h eadache Expires: 06/14/2020 Worst headache o f life Injury of head, initial encounter Health Maintenance Due Date Last Done Comments HEPATITIS C (HCV) SCREEN 1960 PNEUMOCOCCAL 0-64 YEARS COMBINED SERIES (1 11/30/1965 of 1 - PPSV23) DTaP,Tdap,and Td Vaccines (1 - Tdap) 11/30/1970 PAP SMEAR 11/30/1980 Breast Cancer Screening (MAMMOGRAM) 1999 COLONOSCOPY 11/30/2009 Zoster Recombinant Vaccine (SHINGRIX) (1 11/30/2009 of 2) LUNG CANCER SCREEN: Recommended for age 0911/30/2014 55-80 with 30 + pack year history INFLUENZA VACCINE Completed 11/28/2018, 04/08/2017 documented as of this encounter Results Not on filedocumented in this encounter Visit Diagnoses Diagnosis Intractable acute post-traumatic headach e - Primary Acute post-traumatic headache Atypical rash Rash and other nonspecific skin eruption Worst headache of life Headache Injury of head, initial encounter documented in this encounter Insurance Payer Benefit Plan / Subscriber ID Effective Dates Phone Addre ss Type Group [facility] STAR xxxxxxxxx 2019-Present Medicaid COMM PLAN - PLUS MANAGED MEDICAID documented as of this encounter
--- OUTSIDE RECORDS SUMMARY | 2019-07-23 18:03 | XMS REPORT | Summary of Care ---
:1960 Author Organization [facility] Address [address] [place] [address] Care Team Providers Name Role Phone Lexi San Primary Care Provider Reason for Visit Reason Comments Orders Encounter Details Date Type Department Care Team Description 06/11/2019 Telephone [facility] Family Medicine Jossie Tuttle MD Orders - [address] [address] [place] [address] [phone] Allergies Active Allergy Reactions Severity Noted Date [...] mg tablet mouth 2 (two) times daily. ibuprofen 200 mg tablet Take 200 mg by 0 Active mouth every 6 (six) hours as needed. acetaminophen (TYLENOL Take 500 mg by 0 Active EXTRA STRENGTH) 500 mg mouth every 6 tablet (six) hours as needed for Pain. rqrxrcx-smoyffrsktcmy-t Take 1 tablet by 0 Active affeine [...] 2 (two) times daily with meals. metoprolol succinate XL Take 1 tablet by 90 tablet 1 0 Active 25 mg 24 hr mouth daily. tabletIndications: Palpitations documented as of this encounter (statuses as of 06/15/2019) Active Problems Problem Noted Date ADHD 06/01/2019 Arthritis 06/01/2019 Anxiety 06/01/2019 GERD (gastroesophageal reflux disease) 06/01/2019 Painful orthopaedic hardware 05/12/2019 Overview: Added automatically from request for joanna kang [id number] documented as of this encounter (statuses as [...] Office Visit Cardiology Janice Desai M D [address] [place] [address] [address] [place], [place] [phone] 12/14/2019 Office Visit Cardiology Janice Desai M D [address] [facility] [address] [place], [place] [address] [phone] Health Maintenance Due Date Last Done Comments [...] Effective Dates Phone Addre ss Type Group [facility] STAR xxxxxxxxx 2019-Present Medicaid COMM PLAN - PLUS MANAGED MEDICAID documented as of this encounter
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
--- OUTSIDE RECORDS SUMMARY | 2019-07-23 18:04 | XMS REPORT | Summary of Care ---
:1960 Author Organization [facility] - Health Address [address] [place] [address] Care Team Providers Name Role Phone Rika Troncoso MD Primary Care Provider Reason for Visit Reason Comments Refill Request Encounter Details Date Type Department Care Team Description 06/26/2019 Refill [facility] Pediatric and Jossie Yeung MD Refill Request Adult Primary Care- [address] [place] [address] [address] [facility] , [address] [place] [address] Allergies Active Allergy Reactions Severity Noted Date Comments Metoclopramide Hcl Anaphylaxis 10/11/2016 documented as of this encounter (statuses as of 06/26/2019) Medications Medication Sig Dispensed Refills Start Date [...] mg tablet mouth 2 (two) times daily. acetaminophen (TYLENOL Take 500 mg by 0 Active EXTRA STRENGTH) 500 mg mouth every 6 tablet (six) hours as needed for Pain. chuoplv-kritbqiqtlpon-g Take 1 tablet by 0 Active affeine [...] mg 24 hr mouth daily. tabletIndications: Palpitations ivermectin 1 % Apply qdaily to 45 g 0 06/15/2019 Active creamIndications: affected skin Atypical rash methocarbamol 500 mg Take 1 tablet by 40 tablet 0 06/15/2019 Active tabletIndications: mouth 4 (four) Intractable acute times daily as post-traumatic needed (muscle headache, Worst pain or spasm). headache of life, Injury of head, initial encounter ibuprofen 600 mg Take 1 tablet by 45 tablet 0 06/15/2019 Active tabletIndications: mouth 3 (three) Intractable acute times daily with post-traumatic meals as needed headache, Worst (mild-moderate headache of life, pain). Injury of head, initial encounter documented as of this encounter (statuses as of 06/26/2019) Active Problems Problem Noted Date ADHD 06/01/2019 Arthritis 06/01/2019 Anxiety 06/01/2019 GERD (gastroesophageal reflux disease) 06/01/2019 Painful orthopaedic hardware 05/12/2019 Overview: Added automatically from request for joanna pearl [id number] documented as of this encounter (statuses as of 06/26/2019) Social History Tobacco Use Types Packs/Day Years [...] Visit Cardiology Janice Desai M D [address] [facility] [address] [place] [address] 12/14/2019 Office Visit Cardiology Janice Desai M D [address] [facility] [address] [place], [place] [address] Health Maintenance Due Date Last Done [...] Diagnoses Diagnosis Intractable acute post-traumatic headach e Acute post-traumatic headache Worst headache of life Headache Injury of head, initial encounter documented in this encounter Insurance Payer Benefit Plan / Subscriber ID Effective Dates Phone Addre ss Type Group [facility] xxxxxxxxx 2019-Present Medicaid COMM PLAN - PLUS MANAGED MEDICAID documented as of this encounter
--- OUTSIDE RECORDS SUMMARY | 2019-07-23 18:05 | XMS REPORT | Summary of Care ---
:1960 Author Organization [facility] - Health Address [address] [place] [address] Care Team Providers Name Role Phone Rika Troncoso MD Primary Care Provider Reason for Visit Reason Comments Refill Request Encounter Details Date Type Department Care Team Description 06/26/2019 Refill [facility] Pediatric and Jossie Yeung MD Refill Request Adult Primary Care- [address] [place] [address] [address] [facility] , [address] [place] [address] Allergies Active Allergy Reactions Severity Noted Date Comments Metoclopramide Hcl Anaphylaxis 10/11/2016 documented as of this encounter (statuses as of 06/29/2019) Medications Medication Sig Dispensed Refills Start Date [...] ctive creamIndications: to affected Atypical rash skin ibuprofen 600 mg Take 1 tablet 45 tablet 0 06/15/2019 Active tabletIndications: by mouth 3 Intractable acute (three) times post-traumatic daily with headache, Worst meals as headache of life, needed Injury of head, (mild-moderat initial encounter e pain). methocarbamol 500 Take 1 tablet 40 tablet 0 06/29/2019 Active mg by mouth 4 tabletIndications: (four) times Intractable acute daily as post-traumatic needed headache, Worst (muscle pain headache of life, or spasm). Injury of head, initial encounter methocarbamol 500 Take 1 tablet 40 tablet 0 06/15/2019 02 Discontinued mg by mouth 4 0 (Reorder) tabletIndications: (four) times Intractable acute daily as post-traumatic needed headache, Worst (muscle pain headache of life, or spasm). Injury of head, initial encounter documented as of this encounter (statuses as of 06/29/2019) Active Problems Problem Noted Date ADHD 06/01/2019 Arthritis 06/01/2019 Anxiety 06/01/2019 GERD (gastroesophageal reflux disease) 06/01/2019 Painful orthopaedic hardware 05/12/2019 Overview: Added automatically from request for joanna kang [id number] documented as of this encounter (statuses as of 06/29/2019) Social History Tobacco Use Types Packs/Day Years [...] Visit Cardiology Janice Desai M D [address] [facility] [address] [place] [address] 12/14/2019 Office Visit Cardiology Janice Desai M D [address] [facility] [address] [place], [place] [address] Health Maintenance Due Date Last Done [...] Effective Dates Phone Addre ss Type Group [facility] xxxxxxxxx 2019-Present Medicaid COMM PLAN - PLUS MANAGED MEDICAID documented as of this encounter
--- OUTSIDE RECORDS SUMMARY | 2019-07-23 18:05 | XMS REPORT | Summary of Care ---
:1960 Author Organization [facility] Address [address] [place] [address] Care Team Providers Name Role Phone Rika Troncoso MD Primary Care Provider Reason for Referral (Routine) Status Reason Specialty Diagnoses / Referred By Referred To Procedures Contact Contact New Request Endocrinology Diagnoses Thyroid cyst Thyroid nodule Karyna Diabetes & Procedures CONSULT/REFERRAL ENDOCRINOLOGY Jossie Meléndez MD [address] [facility] [address] Reason for Visit Reason Comments Results Encounter Details Date Type Department Care Team Description 07/06/2019 Telephone [facility] Family Medicine Jossie Tuttle MD Results - [address] [place] [address] [place] [address] [phone] Allergies Active Allergy Reactions Severity Noted Date Comments Metoclopramide Hcl Anaphylaxis 10/11/2016 documented as of this encounter (statuses as of 07/08/2019) Medications Medication Sig Dispensed Refills Start Date [...] tablet (six) hours as needed for Pain. ulhzqza-fzgoxgyvyqfxj-b Take 1 tablet by 0 Active affeine [...] 06/15/2019 Active creamIndications: affected skin Atypical rash ibuprofen 600 mg Take 1 tablet by 45 tablet 0 06/15/2019 Active tabletIndications: mouth 3 (three) Intractable acute times daily with post-traumatic meals as needed headache, Worst (mild-moderate headache of life, pain). Injury of head, initial encounter methocarbamol 500 mg Take 1 tablet by 40 tablet 0 06/29/2019 Active tabletIndications: mouth 4 (four) Intractable acute times daily as post-traumatic needed (muscle headache, Worst pain or spasm). headache of life, Injury of head, initial encounter documented as of this encounter (statuses as of 07/08/2019) Active Problems Problem Noted Date ADHD 06/01/2019 Arthritis 06/01/2019 Anxiety 06/01/2019 GERD (gastroesophageal reflux disease) 06/01/2019 Painful orthopaedic hardware 05/12/2019 Overview: Added automatically from request for joanna reyesy [id number] documented as of this encounter (statuses as of 07/08/2019) Social History Tobacco Use Types Packs/Day Years [...] Treatment Date Type Specialty Care Team Description 09/14/2019 Office Visit Cardiology Janice Desai M D [address] [address] 09/15/2019 Laboratory Only Cardiology P[facility], Adc Echo Room 1 - 12/14/2019 Office Visit Cardiology Janice Desai M D [address] [facility] [address] [place] [address] Health Maintenance Due Date Last [...] filedocumented in this encounter Visit Diagnoses Diagnosis Thyroid cyst - Primary Cyst of thyroid Thyroid nodule Nontoxic uninodular goiter documented in this encounter Insurance Payer Benefit Plan / Subscriber ID Effective Dates Phone Addre ss Type Group [facility] xxxxxxxxx 2019-Present Medicaid COMM PLAN - PLUS MANAGED MEDICAID documented as of this encounter
--- OUTSIDE RECORDS SUMMARY | 2019-07-23 18:05 | XMS REPORT | Summary of Care ---
:1960 Author Organization [facility] Address [address] [place] [address] Care Team Providers Name Role Phone Rika Troncoso MD Primary Care Provider Reason for Referral Radiology Services (Routine) Status Reason Specialty Diagnoses / Referred By Referred To Procedures Contact Contact Closed Diagnostic Diagnoses ThyromegalYves Stantonful Radiology Procedures US HEAD NECK MD Rika [address] [place] [address] [place] [address] Reason for Visit Radiology Services (Routine) Status Reason Specialty Diagnoses / Referred By Referred To Procedures Contact Contact Closed Diagnostic Diagnoses Thyromegalmarisol Troncoso, Wondiful Radiology Procedures US HEAD NECK MD Rika [address] [place] [address] [place] [address] Encounter Details Date Type Department Care Team Description 07/03/2019 Hospital Encounter [facility] Yves Charles Arrived [facility] MD [address] [place] [address] [place] [address] [place] [address] [place] [address] [phone] [address] Allergies Active Allergy Reactions Severity Noted Date Comments Metoclopramide Hcl Anaphylaxis 10/11/2016 documented as of this encounter (statuses as of 07/04/2019) Medications Medication Sig Dispensed Refills Start Date [...] tablet (six) hours as needed for Pain. [id number]-b Take 1 tablet by 0 Active affeine [...] as of this encounter (statuses as of 07/04/2019) Active Problems Problem Noted Date ADHD 06/01/2019 Arthritis 06/01/2019 Anxiety 06/01/2019 GERD (gastroesophageal reflux disease) 06/01/2019 Painful orthopaedic hardware 05/12/2019 Overview: Added automatically from request for joanna kang [id number] documented as of this encounter (statuses as of 07/04/2019) Social History Tobacco Use Types Packs/Day Years [...] Visit Cardiology Janice Desai M D [address] [address] 09/15/2019 Laboratory Only Cardiology P[facility], Adc Echo Room 1 - 12/14/2019 Office Visit Cardiology Janice Desai M D [address] [address] Health Maintenance Due Date Last [...] 11/28/2018, 04/08/2017 documented as of this encounter Procedures Procedure Name Priority Date/Time Associated Diagnosis Comme nts US HEAD NECK Routine 07/03/2019 8:47 AM Thyromegaly Results for this CDT procedure are i n the results section . documented in this encounter Results US HEAD NECK (07/03/2019 8:47 AM CDT) Specimen Impressions Performed At PACS/VR/DOSE 1. Multiple subcentimeter colloid cysts and one TR 4 nodule in the left lobe do not meet the ACR criteria for fo llow-up. --- ----- ACR TI-RADS recommendations * TR5 (?7 points) -FNA if ? 1cm, follow-up if 0.5 -0 .9 cm every year for 5 years * TR4 (4-6 points) -FNA if ? 1.5cm, follow-up if 1 - 1.4 cm in 1, 2, 3 and 5 years * TR3 (3 points)-FNA if ? 2.5cm, follow-up if 1.5 -2 .4 cm in 1, 3 and 5 years * TR2 (2 points) & TR1 (0 points) -No FNA or follow-up Narrative Performed At THYROID ULTRASOUND ACR TI-RADS PACS/VR/Plyfe INDICATION: 58yo F with ? thyromegaly. TECHNIQUE: Ultrasound examination of the thyroid and a djacent soft tissues was performed. FINDINGS: The thyroid gland is normal in size with homogeneous echotexture and normal color Doppler flow. The isthmus measures 0.2 cm. The right thyroid lobe measures 5.4 x 1.3 x 1.4 cm wit h volume of 5 mL . The left thyroid lobe measures 4.2 x 1.1 x 1.5 cm with volume of 3.7 mL . Estimated total number of nodules ?1cm: 0 . Number of spongiform nodules ?2cm not de scribed below (TR1): 0. Number of mixed cystic and solid nodules ?1.5cm not de scribed below (TR2): 0 . Nodule#: 1 * Maximum size:0.5 x 0.4 x 0.4 cm. * Location: Lower - Left thyroid lobe . * Composition: Solid/almost completely solid (2) . * Echogenicity: Hypoechoic (2) . * Shape: Not taller than wide (0) . * Margins: Ill defined (0) . * Echogenic foci: None (0) . * ACR TI-RADS total points: 4 . * ACR TI-RADS risk category: TR 4 (4-6 points) . * ACR TI-RADS recommendation: No furth er follow-up * . In addition multiple small less than 5 mm size cystic areas are present in both lobes of the thyroid gland likely r epresenting colloid cysts. Procedure Note [facility], Radiant Results Inft User - 2019 9:12 AM CDT THYROID ULTRASOUND ACR TI-RADS INDICATION: 58yo F with ? thyromegaly. TECHNIQUE: Ultrasound examination of the thyroid and adjacent soft tissues was performed. FINDINGS: The thyroid gland is normal in size with homogeneous echotexture and normal color Doppler flow. The isthmus measures 0.2 cm. The right thyroid lobe measures 5.4 x 1. 3 x 1.4 cm with volume of 5 mL . The left thyroid lobe measures 4.2 x 1.1 x 1.5 cm with volume of 3.7 mL . Estimated total number of nodules ?1cm: 0 . Number of spongiform nodules ?2cm not de scribed below (TR1): 0. Number of mixed cystic and solid nodules ?1.5cm not described below (TR2): 0 . Nodule#: 1 * Maximum size:0.5 x 0.4 x 0.4 cm. * Location: Lower - Left thyroid lobe . * Composition: Solid/almost completely solid (2) . * Echogenicity: Hypoechoic (2) . * Shape: Not taller than wide (0) . * Margins: Ill defined (0) . * Echogenic foci: None (0) . * ACR TI-RADS total points: 4 . * ACR TI-RADS risk category: TR 4 (4-6 points) . * ACR TI-RADS recommendation: No furthe r follow-up * . In addition multiple small less than 5 m m size cystic areas are present in both lobes of the thyroid gland likely r epresenting colloid cysts. IMPRESSION 1. Multiple subcentimeter colloid cysts and one TR 4 nodule in the left lobe do not meet the ACR criteria for fo llow-up. ----- ACR TI-RADS recommendations * TR5 (?7 points) -FNA if ? 1cm, follow -up if 0.5 -0.9 cm every year for 5 years * TR4 (4-6 points) -FNA if ? 1.5cm, fol low-up if 1 -1.4 cm in 1, 2, 3 and 5 years * TR3 (3 points)-FNA if ? 2.5cm, follow -up if 1.5 -2.4 cm in 1, 3 and 5 years * TR2 (2 points) & TR1 (0 points) -No F NA or follow-up Performing Organization Address [facility] Phone Number PACS/VR/DOSE documented in this encounter Visit Diagnoses Diagnosis Thyromegaly Goiter, unspecified documented in this encounter Insurance Payer Benefit Plan / Subscriber ID Effective Dates Phone Addre ss Type Group [facility] xxxxxxxxx 2019-Present Medicaid COMM PLAN - PLUS MANAGED MEDICAID documented as of this encounter
--- OUTSIDE RECORDS SUMMARY | 2019-07-23 18:05 | XMS REPORT | Summary of Care ---
:1960 Author Organization [facility] Address [address] [place] [address] Care Team Providers Name Role Phone Rika Troncoso MD Primary Care Provider Reason for Referral MRI/CAT Scan (STAT) Status Reason Specialty Diagnoses / Referred By Referred To Procedures Contact Contact Closed Diagnostic Diagnoses Intractable acute post-traumatic headache Worst headache of life Injury of head, initial encounter Jossie Troncoso Radiology Procedures CT HEAD WO VA Meléndez MD [address] [place] [address] [place] [address] Reason for Visit MRI/CAT Scan (STAT) Status Reason Specialty Diagnoses / Referred By Referred To Procedures Contact Contact Closed Diagnostic Diagnoses Intractable acute post-traumatic headache Worst headache of life Injury of head, initial encounter Jossie Troncoso Radiology Procedures CT HEAD WO VA Meléndez MD [address] [place] [address] [place] [address] Encounter Details Date Type Department Care Team Description 07/03/2019 Hospital Encounter [facility] Yves Troncoso Arrived [place] [facility] MD Tomography [address] [place] [address] [place] [address] [place] [id number] Allergies Active Allergy Reactions Severity Noted [...] tablet (six) hours as needed for Pain. [id number]-lrlqxdrnctyey-z Take 1 tablet by 0 Active affeine [...] Added automatically from request for joanna kang [id number] documented as of this encounter (statuses as [...] Desai M D [address] [facility] [address] [place] [address] 09/15/2019 Laboratory Only Cardiology Pc, Adc Echo Room 1 - 12/14/2019 Office Visit Cardiology Janice Desai M D [address] [facility] [address] [place] [address] 15 Health Maintenance Due Date Last Done [...] Name Priority Date/Time Associated Diagnosis Comme nts CT HEAD WO CONTRAST STAT 07/03/2019 8:26 AM Intractable ac [place] Results for this CDT post-traumatic procedure are in headache the results Worst headache of section. life Injury of head, initial encounter documented in this encounter Results CT HEAD WO CONTRAST (07/03/2019 8:26 AM CDT) Specimen Impressions Performed At No acute intracranial findings. PACS/VR/DOSE Preliminary Report Dictated by Resident: Sanya Veloz I, Rayray Reza MD., have reviewed this study and agree with the above report. Narrative Performed At CT HEAD WO CONTRAST PACS/VR/DOSE HISTORY: Headache, acute, severe, worst HOOVER of life Head trauma, headache 58yo F with severe HOOVER (worst HOOVER of her l sarai) s/p head trauma (fall) COMPARISON: None. TECHNIQUE: Noncontrast CT of the brain w as obtained with coronal and sagittal reconstructions. FINDINGS: A prominent superior cerebellar cistern is noted, othe rwise the ventricles and cerebral sulci are normal in caliber and configuration. No hydrocephalus, midline shift or pathological extra-axi al fluid collection is present. There is no acute intracranial hemorrhag e or significant mass effect. No parenchymal attenuation abnormality. The carpenter-white ma tter differentiation is preserved. The mastoid air cells and paranasal air sinuses are clear. The calvarium and central skull base are unremarkable. Procedure Note [facility], Radiant Results Inft User - 2019 9:[address] HEAD WO CONTRAST HISTORY: Headache, acute, severe, worst HOOVER of life Head trauma, headache 58yo F with severe HOOVER (worst HOOVER of her l sarai) s/p head trauma (fall) COMPARISON: None. TECHNIQUE: Noncontrast CT of the brain w as obtained with coronal and sagittal reconstructions. FINDINGS: A prominent superior cerebellar cistern is noted, otherwise the ventricles and cerebral sulci are normal in caliber and configuration. No hydrocephalus, midline shift or patholog ical extra-axial fluid collection is present. There is no acute intracranial hemorrhag e or significant mass effect. No parenchymal attenuation abnormality. The carpenter-white matter differentiation is preserved. The mastoid air cells and paranasal air sinuses are clear. The calvarium and central skull base are unremarkable. IMPRESSION No acute intracranial findings. Preliminary Report Dictated by Resident: Sanya Veloz I, Rayray Reza MD., have reviewed t his study and agree with the above report. Performing Organization Address City/State/Zipcode Phone Number PACS/VR/DOSE documented in this encounter Visit Diagnoses Diagnosis Intractable acute post-traumatic headach e Acute post-traumatic headache Worst headache of life Headache Injury of head, initial encounter documented in this encounter Insurance Payer Benefit Plan / Subscriber ID Effective Dates Phone Addre ss Type Group [facility] xxxxxxxxx 2019-Present Medicaid COMM PLAN - PLUS MANAGED MEDICAID documented as of this encounter
--- OUTSIDE RECORDS SUMMARY | 2019-07-23 18:06 | XMS REPORT | Encounter Summary ---
:1960 Author Reason for Visit Psychiatric Follow Up Instructions 1. Attention deficit hyperactivi ty disorder 2. Moderate recurrent major depr ession Lexapro 20 mg tablet quetiapine 50 mg tablet quetiapine 100 mg tablet 3. Panic disorder with agoraphob ia buspirone 15 mg tablet clonazepam 1 mg tablet Discussion Note Advised to call if any problems or issues. Patient educational handouts: No information available. Plan of Care Patient Instructions Continue current treatment. RTC 3-m ont or sooner if necessary. Reminders Provider Appointments Est Pt/new 08/25/2019 Liliya Abbott to Pcp 2:30PM MD Danelle Est 10/12/2019 [facility] Psychiatry 3:15PM Ozzy Baird MD Est on or around [facility] 10/12/2019 Ozzy Baird MD Lab None recorded. Referral None recorded. Procedures None recorded. Surgeries None recorded. Imaging None recorded. Medications Name Start Date acetaminophen 300 mg-codeine 30 mg tablet amlodipine 5 mg tablet amoxicillin 500 mg capsule azithromycin 250 mg tablet azithromycin 500 mg tablet benzonatate 100 mg capsule buspirone 15 mg tablet TAKE 1 TABLET BY MOUTH THREE TIMES DAILY cholestyramine (with sugar) 4 gram oral powder clonazepam 1 mg tablet TAKE 1 TABLET BY MOUTH THREE TIMES DAILY Combivent Respimat 20 mcg-100 mcg/actuation solution f or inhalation dextroamphetamine-amphetamine 20 mg tablet Take 1 tablet(s) twice a day by oral route. famotidine 40 mg tablet gabapentin 300 mg capsule Take 1 capsule every day by oral route for 30 days. GaviLyte-G 236 gram-22.74 gram-6.74 gram-5.86 gram ora l solution hydrocodone 7.5 mg-acetaminophen 325 mg tablet hydrocortisone 1 % topical cream ibuprofen 600 mg tablet ibuprofen 800 mg tablet ivermectin 1 % topical cream ivermectin 3 mg tablet Lexapro 20 mg tablet Take 1 tablet every day by oral route. lidocaine-prilocaine 2.5 %-2.5 % topical cream methocarbamol 500 mg tablet metoprolol succinate ER 25 mg tablet,extended release 24 hr mupirocin 2 % topical ointment Narcan 4 mg/actuation nasal spray Nexium 20 mg capsule,delayed release Take 1 capsule every day by oral route for 30 days. nystatin 100,000 unit/gram topical cream ondansetron 8 mg disintegrating tablet pantoprazole 40 mg tablet,delayed release permethrin 5 % topical cream prednisone 10 mg tablet prednisone 20 mg tablet ProAir HFA 90 mcg/actuation aerosol inhaler quetiapine 100 mg tablet Take 1 tablet every day by oral route at bedtime. quetiapine 50 mg tablet Take 1 tablet twice a day by oral route. Medications Administered None recorded. Vitals None recorded. Results Lab Results None recorded. Allergies Code Code System Name Reaction Severity Status Onset 9229 RxNorm Reglan Other Severe Active Problems Name Status Onset Date Source Crusted Scabies Active 03/14/2018 Chronic Obstructive Lung Disease Active 03/14/2018 Moderate Recurrent Major Depression Active Panic Disorder with Agoraphobia Active Attention Deficit Hyperactivity Disorder Active Procedures None recorded. Vaccine List None recorded. Social History Tobacco Smoking Status Former Smoker Past Encounters 07/13/2019 Attention Deficit Hyperactivity Disorder ; Moderate Recurrent Major Depression; Panic Disorder with Agoraphobia Yovany Baird MD: [facility] [place] [address], Ph. [phone] History of Present Illness Psych Medication Management Reported By: Patient HPI: Medications: taking medicati ons as directed, no side effects from medication. General overall feeling: feeling as well as can be expected Psychiatric General Follow-U p Reported By: Patient HPI: Context: relationship stress , poor family dynamics Associated Symptoms: Mood: sadness. Anxiety: gene ralized worry. Sleep: no insomnia. Appetite: no wolff e Prior Treatment and Review:: Medication Compliance: gr eater than 90% Note: <p>Was seen through Teams for med. check. Has been staying more with her BF helping his mother and also near her grandson. States she was hospitalized twice in March with pneumonia. States she doesn't go anywhere and has been socially distancing. Compliant with meds. No AE. States since all this started, her anxiety has been really bad. Living with BF has also increased her anxiety. Sleep fair, appetite okay. States she is currently taking Seroquel 50mg BID and 100mg QHS. E/C fair. Moodhas been okay. Health as noted. Denies ETOH/drugs. No legal issues.</p> Review of Systems None recorded. Physical Exam Mental Status Exam Reported By: Patient Mental Status Exam: Appearance: well-groomed, cl lloyd. Behavior: eye contact, cooperative. Speech: clear. Perception: no hallucinations. Cognition: alert, oriented t o situation, oriented to time, oriented to place, oriented to person. Intelligence: average. Memory: remote, recent. Mood : sad. Affect: sad. Insight: impaired. Judgment: impaired . Thought Processes: intact. Thought Content: unremarkable
--- NOTE | 2019-07-23 19:16 | ER ---
Nurse's Notes [facility] Name: Lilian Quinteros Age: 58 yrs Sex: Female : 1960 Arrival Date: 07/23/2019 Time: 17:57 Bed 23 Private MD: Diagnosis: Dermatitis, unspecified Presentation: 07/22 18:25 Chief complaint: Patient states: sores to face, arms, and back of neck. Pt states "I aa5 know I have a parasite or something because I can feel it all over my body". Pt states "I've seen like 3 covered button maker already". Pt states "I've been working out in the yard". Pt states "I see the worms come out and they leave me with these sores". Coronavirus screen: Proceed with normal triage. Patient denies a cough. Patient denies shortness of breath or difficulty breathing. Patient denies measured and/or subjective temperature greater than 100.4F prior to today's visit. Patient denies travel on a cruise ship or to a country the [facility] currently lists as an affected area. Patient denies contact with known and/or suspected case of COVID-19. Ebola Screen: Patient negative for fever greater than or equal to 101.5 degrees Fahrenheit, and additional compatible Ebola Virus Disease symptoms. Anaphylaxis evaluation, no signs or symptoms of anaphylaxis were noted. Initial Sepsis Screen: Does the patient meet any 2 criteria? No. Patient's initial sepsis screen is negative. Does the patient have a suspected source of infection? No. Patient's initial sepsis screen is negative. Risk Assessment: Do you want to hurt yourself or someone else? Patient reports no desire to harm self or others. Onset of symptoms is unknown. 18:25 Method Of Arrival: Ambulatory aa5 18:25 Acuity: SUZANNE 5 aa5 Historical: - Allergies: 18:24 Reglan; aa5 18:29 hydrocodone; aa5 - PMHx: 18:24 ADD/ADHD; Anxiety; cardiac arrythmia; COPD; Depression; Hypertension; Pancreatitis; aa5 psychogenic parasitosis; - PSHx: 18:24 finger; aa5 - Immunization history:: Adult Immunizations up to date. - Social history:: Smoking status: Patient denies any tobacco usage or history of. - Family history:: not pertinent. - Hospitalizations: : No recent hospitalization is reported. Screenin:45 Abuse screen: Denies threats or abuse. Denies injuries from another. Nutritional ca1 screening: No deficits noted. Tuberculosis screening: No symptoms or risk factors identified. Fall Risk None identified. Assessment: 18:45 General: Appears in no apparent distress. comfortable, Behavior is calm, cooperative, ca1 appropriate for age. Pain: Denies pain. Neuro: Level of Consciousness is awake, alert, obeys commands, Oriented to person, place, time, situation, Appropriate for age. Cardiovascular: Heart tones S1 S2 present Capillary refill < 3 seconds. Respiratory: Airway is patent Respiratory effort is even, unlabored, Respiratory pattern is regular, symmetrical, Breath sounds are clear bilaterally. GI: Abdomen is flat, non-distended, Bowel sounds present X 4 quads. Abd is soft and non tender X 4 quads. : No signs and/or symptoms were reported regarding the genitourinary system. EENT: No signs and/or symptoms were reported regarding the EENT system. Derm: Skin is intact, is healthy with good turgor, Skin is pink, warm \\T\\ dry. Musculoskeletal: Circulation, motion, and sensation intact. Capillary refill < 3 seconds. Vital Signs: 18:26 BP 124 / 99; Pulse 92; Resp 18 S; Temp 98.4(O); Pulse Ox 98% on R/A; Weight 70.31 kg aa5 (R); Height 5 ft. 7 in. (170.18 cm) (R); Pain 0/10; 18:26 Body Mass Index 24.28 (70.31 kg, 170.18 cm) aa5 ED Course: 17:57 Patient arrived in ED. as 18:24 Arm band placed on. aa5 18:28 Triage completed. aa5 18:43 Claudette Cole, JAE is Primary Nurse. ca1 18:45 Patient has correct armband on for positive identification. Bed in low position. Call ca1 light in reach. Side rails up X 1. Pulse ox on. NIBP on. 18:46 No provider procedures requiring assistance completed. Patient did not have IV access ca1 during this emergency room visit. 18:58 Tremayne Lance MD is Attending Physician. rn 19:14 Report given to JAE Ross. ca1 Administered Medications: No medications were administered Outcome: 19:15 Discharge ordered by . rn 19:27 Discharged to home ambulatory. mg2 19:27 Condition: good 19:27 Discharge instructions given to patient, Instructed on discharge instructions, follow up and referral plans. medication usage, Demonstrated understanding of instructions, follow-up care, medications, Prescriptions given X 1. 19:32 Patient left the ED. mg2 Signatures: Ghazal Gray Roman, MD MD rn Calderon, Audri, RN RN aa5 Aime Garrett RN RN mg2 Claudette Cole RN RN ca1 Corrections: (The following items were deleted from the chart) 18:32 18:25 Chief complaint: Patient states: sores to face, arms, and back of neck. Pt states aa5 "I know I have a parasite or something because I can feel it all over my body". Pt states "I've seen like 3 covered button maker already". Pt states "I've been working out in the yard" aa5
--- NOTE | 2019-07-23 19:16 | EDPHYS ---
Physician Documentation [facility] [place], [place] Name: Lilian Quinteros Age: 58 yrs Sex: Female : 1960 Arrival Date: 07/23/2019 Time: 17:57 Bed 23 Private MD: ED Physician Tremayne Lance HPI: 07/22 19:11 This 58 yrs old Female presents to ER via Ambulatory with complaints of Rash, advice line rn Symptoms. 19:11 The patient's rash thought to be caused by an unknown cause. The rash is located on the rn body diffusely. The rash can be described as erythematous. Onset: The symptoms/episode began/occurred yesterday. Severity of symptoms: At their worst the symptoms were moderate in the emergency department the symptoms are unchanged. The patient has experienced a previous episode. Reports has had this before, seen by multiple dermatologists, nothing helped until took ivermectin, reports had to take dog to vet because also has rash and itchy. Reports diffuse. No fever. Thinks is parasitic and finds find things in skin, has taken some "samples" to her doctor. Reports pcp finally gave her ivermectin in past and improved symptoms. . Historical: - Allergies: 18:24 Reglan; aa5 18:29 hydrocodone; aa5 - PMHx: 18:24 ADD/ADHD; Anxiety; cardiac arrythmia; COPD; Depression; Hypertension; Pancreatitis; aa5 psychogenic parasitosis; - PSHx: 18:24 finger; aa5 - Immunization history:: Adult Immunizations up to date. - Social history:: Smoking status: Patient denies any tobacco usage or history of. - Family history:: not pertinent. - Hospitalizations: : No recent hospitalization is reported. ROS: 19:11 Constitutional: Negative for fever, chills, and weight loss, Eyes: Negative for injury, rn pain, redness, and discharge, Neck: Negative for injury, pain, and swelling, Cardiovascular: Negative for chest pain, palpitations, and edema, Respiratory: Negative for shortness of breath, cough, wheezing, and pleuritic chest pain, Abdomen/GI: Negative for abdominal pain, nausea, vomiting, diarrhea, and constipation, MS/Extremity: Negative for injury and deformity, Skin: + diffuse rash Neuro: Negative for headache, weakness, numbness, tingling, and seizure. Exam: 19:11 Constitutional: This is a well developed, well nourished patient who is awake, alert, rn and in no acute distress. Head/Face: Normocephalic, atraumatic. ENT: No intraoral lesions Cardiovascular: Regular rate and rhythm. No pulse deficits. Respiratory: Speaking full sentences, non-labored Skin: Diffuse small erythematous lesions with excoriations, some crusted, mainly on face and extremities. MS/ Extremity: Pulses equal, no cyanosis. Neurovascular intact. Full, normal range of motion. Equal circumference. Neuro: Awake and alert, GCS 15, oriented to person, place, time, and situation. Cranial nerves II-XII grossly intact. Motor strength 5/5 in all extremities. Sensory grossly intact. Cerebellar exam normal. Normal gait. Vital Signs: 18:26 BP 124 / 99; Pulse 92; Resp 18 S; Temp 98.4(O); Pulse Ox 98% on R/A; Weight 70.31 kg aa5 (R); Height 5 ft. 7 in. (170.18 cm) (R); Pain 0/10; 18:26 Body Mass Index 24.28 (70.31 kg, 170.18 cm) aa5 MDM: 18:58 Patient medically screened. rn 19:14 Differential diagnosis: allergic reaction, parasite infection, dermatitis, scabies, rn stimulant induced. Data reviewed: vital signs, nurses notes, and as a result, I will discharge patient. Counseling: I had a detailed discussion with the patient and/or guardian regarding: the historical points, exam findings, and any diagnostic results supporting the discharge/admit diagnosis, the need for outpatient follow up, to return to the emergency department if symptoms worsen or persist or if there are any questions or concerns that arise at home. Special discussion: I discussed with the patient/guardian in detail that at this point there is no indication for admission to the hospital. It is understood, however, that if the symptoms persist or worsen the patient needs to return immediately for re-evaluation. Administered Medications: No medications were administered Disposition: 07/23/19 19:15 Discharged to Home. Impression: Dermatitis, unspecified. - Condition is Stable. - Discharge Instructions: Rash. - Prescriptions for ivermectin 3 mg Oral tablet - take 4 tablet by ORAL route one time x1 dose; 4 tablet. - Medication Reconciliation Form, Thank You Letter, Antibiotic Education, Prescription Opioid Use form. - Follow up: Private Physician; When: As needed; Reason: Recheck today's complaints, Re-evaluation by your physician. - Problem is new. - Symptoms are unchanged. Signatures: Tremayne Lance MD MD rn Calderon, Audri RN RN aa5 Aime Garrett, RN RN mg2 Acob, Claudette, RN RN ca1 Corrections: (The following items were deleted from the chart) 19:15 19:11 Constitutional: This is a well developed, well nourished patient who is awake, rn alert, and in no acute distress. Head/Face: Normocephalic, atraumatic. ENT: No intraoral lesions Cardiovascular: Regular rate and rhythm. No pulse deficits. Respiratory: Speaking full sentences, non-labored Skin: Diffuse small erythematous lesions with excoriations, some crusted, mainly on face and extremities. rn 19:32 19:15 07/23/2019 19:15 Discharged to Home. Impression: Dermatitis, unspecified. mg2 Condition is Stable. Prescriptions for ivermectin 3 mg Oral tablet - take 4 tablet by ORAL route one time x1 dose; 4 tablet. and Forms are Medication Reconciliation Form, Thank You Letter, Antibiotic Education, Prescription Opioid Use. Follow up: Private Physician; When: As needed; Reason: Recheck today's complaints, Re-evaluation by your physician. Problem is new. Symptoms are unchanged. rn
[2019-07-24 06:44] VITALS: BP 124/99; TEMP 98.4; O2SAT 98
== END 2019-07-23 19:32 | disposition home or self-care (01) ==
LOC: ER 17:55
DX: L30.9 Dermatitis, unspecified (principal); I10 Essential (primary) hypertension; Z88.5 Allergy status to narcotic agent; Z88.8 Allergy status to other drugs, medicaments and biological substances
CPT/HCPCS: 99283

== ENCOUNTER 2019-07-28 17:12 | Emergency (ER) | payer OTHER ==
--- OUTSIDE RECORDS SUMMARY | 2019-07-28 17:14 | XMS REPORT ---
[...] End Status Dosage System Date Date Amphetamine-Dex [facility] 43405031013 10 MG Orally Active 1 tablet in troamphetamine Once a day the mo rn and 1 tab at noon HydrOXYzine HCl ND 71334165350 50 MG Orally Active 1 tablet as every 6 hrs needed Permethrin ND 32142187719 5 % Externally Sept Oct Active 1 application Once a day , , to 2017 2018 area Clonazepam [facility] [address]-10 1 MG Orally Active 1 t ablet BID prn Seroquel ND 20594082923 25 MG Orally Active 1 tabl et in the morning, 2 tablets at bedtime PredniSONE ND 03617450655 10 MG Orally Active 1 ta blet Once a day Duloxetine HCl [facility] [address]-31 60 MG Orally Active 1 capsule Once a day BusPIRone HCl [facility] 57151716987 10 MG Orally Active 1 tablet Twice a day Fluocinonide ND 00015611757 0.05 % Active as dire cted Externally Nexium ND 90965322794 20 MG Orally Active 1 capsu le Once a day Proventil HFA [facility] 38522259858 108 (90 Base) Active 2 puffs as MCG/ACT needed Inhalation every 6 hrs ibuprofen ND 80547994619 Oral Active 1 tab HydrALAZINE HCl ND 64193494073 50 MG Orally Sept Active 1 tablet with Three times a 24, food 2017 Restasis ND 17880893757 0.05 % Active 1 drop into Ophthalmic affected eye Twice a day Klonopin ND 81615082818 1 MG Orally Active 1 table t Once a day Gabapentin ND 52832339877 300 MG Orally Active 1 c apsule Three times a before day bedtime Oxycodone HCl ND 85955836928 10 MG Orally Active 1 tablet as every 6 hrs needed Tizanidine HCl ND 18895269132 4 MG Orally Active 1 tablet as once a day; needed PRN Results No Known Results Summary Purpose eClinicalWorks Submission
--- OUTSIDE RECORDS SUMMARY | 2019-07-28 17:14 | XMS REPORT | Clinical Summary ---
:[address] [facility] Address [address] [place] [address] Care Team Providers Name Role Phone Unavailable [...] 1 disorder 05/12/2018 Overview: Overview: Follows psychiatrist. [place] Encounters Date Type Specialty Care Team Description 08/03/2018 Emergency Emergency Medicine Sharon, Jessika Argueta for wound check (Primary Dx); Pain of left hand; Jennifer Bautista Pain from implanted hardware, initial encounter; MD Verna Elevated blood pressure reading 08/03/2018 Travel after 07/27/2018 Social History Tobacco Use Types Packs/Day Years [...] Not on file Implants Implanted Type Area Occupancy Specialist Device Shelf Model / Identifier Expiration Serial / Date Lot Gilbert Lynch [id number] - [id number] IMPLANTS Left: MICROAIRE SURG [id number] / Implanted: Qty: 3 on 07/09/2018 by Deanne Arcos MD Finger INSTR / [id number] Procedures Procedure Name Priority Date/Time Associated Diagnosis Comme nts XR HAND 3 VIEWS STAT 08/03/2018 6:47 PM Resul ts for this LEFT CDT procedure are i n the results section. after 07/27/2018 Results XR hand 3 views left (08/03/2018 6:47 PM CDT) Specimen Narrative Performed At FINAL REPORT [facility] TECHNIQUE: Three views of the left hand. [...] MD Report Verified Date/Time:08/03/2018 19:03:56 Reading Location: [address] Body R [facility] Room Procedure Note Interface, External Ris In [...] Verified Date/Time: 08/03/2018 1 9:03:56 Reading Location: [facility] [address] Body R eading Room Performing Organization Address City/State/Zipcode Phone Number GE RIS after 07/27/2018 Insurance Payer Benefit Plan / Subscriber ID Type Phone Address Group MEDICAID - MEDICAID [place] xxxxxxxxx Medicaid Contracted MGD CARE PLAN Advance Directives For more information, please contact:[facility] [place], [place] [phone] Code Status Date Activated Date Inactivated Comments Full Code 07/09/2018 1:20 AM 07/10/2018 3:56 PM This code status was determined by: Patient
--- OUTSIDE RECORDS SUMMARY | 2019-07-28 17:15 | XMS REPORT ---
:[address] [facility] t Address [address] [place] [address] Care Team Providers Name Role Phone JOSE [...] Type Clinicians Facility Department ID 2019-07-13 2019-07-13 Yvoany VICKY [place] - [id number] 00:00:00 00:00:00 Ozzy Baird MD: [address] [place] [id number], Ph. ([phone]) --20072019-04-06 2019-04-06 Yovany VICKY [place] - [id number] 00:00:00 00:00:00 Ozzy Baird MD: [address]ain [address] [facility], [place] [id number], Ph. ([phone]) --20072019-01-05 2019-01-05 Yovany PERRY [place] - [id number] 00:00:00 00:00:00 Ozzy Baird MD: [address] [facility] [address], [facility] [address], Ph. ([phone]) --20072017-12-09 2017-12-09 [facility] [id number] 13:15:00 13:15:00 [facility] Medicine Results Test Description Test Time Test Comments Text Results Atomic Results Result Comments MAYRA GRAY, 3 2018-08-03 Reason for FINAL REPORT PATIENT ID: [id number] VIEWS, LEFT 19:03:00 exam:->eval TECHNIQUE: Three views [...] Verified Date/Time: 08/03/2018 19:03 :56 Reading Location: [facility] B1 C[address] Body Reading Room Elect ronically signed by: ENOC NUNEZ MD on 08/03/2018 07:03 PM FL, [facility] MGR IN 2018-07-17 Reason for PROCEDURE PERFORMED IN O. R. - PLEASE OR/30 MINUTE 18:30:00 exam:->ORIF Left REFER TO THE INTRAOPERAT VISH REPORT. INCREMENTS little finger ESIUM 2018-07-10 07:39:00 Test Item Value Reference Range Comments MAGNESIUM (BEAKER) (test code = 627) 2.2 mg/dL 1.6-2.6 Specimen slightly hemolyzed [id number] 07:39:00 Test Item Value Reference Range Comments PHOSPHORUS (BEAKER) (test code 4.1 mg/dL 2.3-4.7 S pecimen slightly hemolyzed = 604) BASIC METABOLIC [id number] 07:39:00 Test Item Value Reference Range Comments [...] DIALYSIS PATIENT S. RAD, HAND, 3 VIEWS, [id number] 12:58:00Reason for exam:->left finger fractureFINAL REPORT Left [...] MDReport Verified Date/Time: 07/09/2018 12:58:27 Reading Location: [address] ConsultReading Room [id number] 04:31:00 Test Item Value Reference Range Comments PHOSPHORUS (BEAKER) (test code = 604) 3.8 mg/dL 2.3-4.7 [id number] 04:31:00 Test Item Value Reference Range Comments MAGNESIUM (BEAKER) (test code = 627) 2.4 mg/dL 1.6-2.6 BASIC METABOLIC [id number] 04:31:00 Test Item Value Reference Range Comments [...] PATIENT S. CBC W/PLT COUNT & AUTO [id number] 04:05:00 Test Item Value Reference Range Comments [...]
[2019-07-28] MEDS ORDERED: DOXYCYCLINE 100 MG CAP PO ONE (18:17)
[2019-07-28 18:59] LABS: Barbiturates NEGATIVE (NEGATIVE); Benzodiazepines NEGATIVE (NEGATIVE); Cocaine NEGATIVE (NEGATIVE); METHAMPHETAM POSITIVE (NEGATIVE); Methadone NEGATIVE (NEGATIVE); Opiates POSITIVE (NEGATIVE); Phencyclidine NEGATIVE (NEGATIVE); THC Cannibis NEGATIVE (NEGATIVE)
--- NOTE | 2019-07-28 19:04 | ER ---
Nurse's Notes [facility] Name: Lilian Quinteros Age: 58 yrs Sex: Female : 1960 Arrival Date: 07/28/2019 Time: 17:14 Bed 6 Private MD: Diagnosis: Dermatitis, unspecified;Cellulitis and acute lymphangitis of face and neck-nose;Urinary tract infection, site not specified Presentation: 07/27 17:14 Chief complaint: Patient states: Rash and itching on R leg, around mouth and behind ca1 ears. Was here few days ago for the same thing. Coronavirus screen: Proceed with normal triage. Patient denies a cough. Patient denies shortness of breath or difficulty breathing. Patient denies measured and/or subjective temperature greater than 100.4F prior to today's visit. Patient denies travel on a cruise ship or to a country the [facility] currently lists as an affected area. Patient denies contact with known and/or suspected case of COVID-19. Ebola Screen: Patient negative for fever greater than or equal to 101.5 degrees Fahrenheit, and additional compatible Ebola Virus Disease symptoms Patient denies exposure to infectious person. Patient denies travel to an Ebola-affected area in the 21 days before illness onset. No symptoms or risks identified at this time. Initial Sepsis Screen: Does the patient meet any 2 criteria? No. Patient's initial sepsis screen is negative. Does the patient have a suspected source of infection? No. Patient's initial sepsis screen is negative. Risk Assessment: Do you want to hurt yourself or someone else? Patient reports no desire to harm self or others. Onset of symptoms was July 28, 2019. 17:14 Method Of Arrival: Ambulatory ca1 17:14 Acuity: SUZANNE 5 ca1 Historical: - Allergies: 17:21 Reglan; ca1 17:21 HYDROCODONE; ca1 - Home Meds: 17:21 buspirone 15 mg Oral tab 1 tab three times a day [Active]; clonazepam 1 mg Oral tab 1 ca1 tab 2 times per day [Active]; metoprolol tartrate 25 mg Oral tab 1 tab once daily [Active]; pantoprazole Oral [Active]; Seroquel 50 mg Oral tab nightly [Active]; Lexapro Oral [Active]; - PMHx: 17:21 ADD/ADHD; Anxiety; COPD; cardiac arrythmia; Depression; Hypertension; Pancreatitis; ca1 psychogenic parasitosis; - PSHx: 17:21 finger; ca1 - Immunization history:: Adult Immunizations up to date. - Social history:: Smoking status: Patient reports the use of cigarette tobacco products, smokes one-half pack cigarettes per day. - Family history:: not pertinent. Screenin:30 Abuse screen: Denies threats or abuse. Nutritional screening: No deficits noted. rb1 Tuberculosis screening: No symptoms or risk factors identified. Fall Risk None identified. Assessment: 17:30 General: Appears in no apparent distress. comfortable, Behavior is calm, cooperative, rb1 Denies fever. Pain: Denies pain. Neuro: Level of Consciousness is awake, alert, obeys commands, Oriented to person, place, time, situation. Cardiovascular: Capillary refill < 3 seconds. Respiratory: Airway is patent Respiratory effort is even, unlabored, Respiratory pattern is regular, symmetrical. GI: No signs and/or symptoms were reported involving the gastrointestinal system. : No signs and/or symptoms were reported regarding the genitourinary system. Derm: Rash noted that is itchy, red, Looks like red scabs. Pt. reports that she is not picking at the rash. Has scaring from having the rash previously. 18:30 Reassessment: Patient appears in no apparent distress at this time. No changes from rb1 previously documented assessment. 19:10 Reassessment: Patient and/or family updated on plan of care and expected duration. Pain ea level reassessed. Patient is alert, oriented x 3, equal unlabored respirations, skin warm/dry/pink. Discharge instruction given to patient, verbalized the understanding of instruction. Pt left ED ambulatory tolerating well. Vital Signs: 17:14 BP 142 / 93; Pulse 75; Resp 16 S; Temp 97.2(TE); Pulse Ox 98% on R/A; Weight 69.85 kg ca1 (R); Height 5 ft. 7 in. (170.18 cm) (R); 17:14 Body Mass Index 24.12 (69.85 kg, 170.18 cm) ca1 ED Course: 17:14 Patient arrived in ED. mr 17:19 Triage completed. ca1 17:21 Arm band placed on right wrist. ca1 17:23 Maldonado Farooq MD is Attending Physician. marc 17:29 Omalley, Kenia, RN is Primary Nurse. rb1 17:30 Patient has correct armband on for positive identification. Bed in low position. Call rb1 light in reach. Side rails up X 1. Pulse ox on. NIBP on. 19:03 Kody Macdonald MD is Referral Physician. [facility] 19:11 No provider procedures requiring assistance completed. Patient did not have IV access ea during this emergency room visit. Administered Medications: 18:12 Drug: Doxycycline 200 mg Route: PO; rb1 19:11 Follow up: Response: No adverse reaction ea Outcome: 19:03 Discharge ordered by . [facility] 19:11 Discharged to home ambulatory. ea 19:11 Condition: stable 19:11 Discharge instructions given to patient, Instructed on discharge instructions, follow up and referral plans. medication usage, Demonstrated understanding of instructions, follow-up care, medications, Prescriptions given X 4. 19:12 Patient left the ED. ea Signatures: Maldonado Farooq MD MD cha Rivera, Mary mr Kenia Omalley, JAE RN Ayah Sy RN RN Claudette Albrecht RN RN ca1
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
[2019-07-28 19:19] VITALS: BP 142/93; TEMP 97.2; O2SAT 98
[2019-07-28 20:47] LABS: Urine Blood 1+ (NEG); Urine Glucose NEGATIVE (NEG); Urine Protein NEGATIVE (NEG); Urine Specific Gravity 1.025 (1.005-1.030); Urine pH 6.5 (5.0-7.0)
== END 2019-07-28 19:12 | disposition home or self-care (01) ==
LOC: ER 17:12
DX: L30.9 Dermatitis, unspecified (principal); L03.211 Cellulitis of face; L03.212 Acute lymphangitis of face; J34.0 Abscess, furuncle and carbuncle of nose; N39.0 Urinary tract infection, site not specified; F17.210 Nicotine dependence, cigarettes, uncomplicated; I10 Essential (primary) hypertension; F34.1 Dysthymic disorder; J44.9 Chronic obstructive pulmonary disease, unspecified; Z88.5 Allergy status to narcotic agent; Z88.8 Allergy status to other drugs, medicaments and biological substances
CPT/HCPCS: 80307; 81003; 82947; 99283

== ENCOUNTER 2019-08-21 13:40 | Emergency (ER) | payer OTHER ==
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
--- OUTSIDE RECORDS SUMMARY | 2019-08-21 14:00 | XMS REPORT | Continuity of Care Document ---
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 4-24 [facility] 00 Center GERD GERD Disease Active [facility] ([facility]astroeso (gastroeso 3-20 Tracey kes - phageal phageal 00:00: Medical reflux reflux Center disease) disease) Hepatitis Hepatitis Disease Active [facility] C, chronic C, chronic 3-20 Tracey kes - 00:00: Medical 00 Center Bipolar 1 Bipolar 1 Disease Active Overview: [facility] disorder disorder 05-12 Overview: [facility] - 00:00: [facility] Crusted Crusted Problem Active 2017-03 [place] scabies Scabies 05-15 da 00:[facility]: [facility] Chronic Chronic Problem Active 2017-03 [place] obstructiv Obstructiv 05-15 da e lung e Lung 00:00: [facility] disease Disease 00 al Health Outre[facility] Program Swelling Swelling Problem [facility] Muscle Muscle Problem Active [facility] tension tension [facility] headache headache [facility] Clinics Chronic Chronic Problem Active [facility] obstructiv obstructiv Tracey kes - e e Memoria pulmonary pulmonary l disease disease Outpati (COPD) (COPD) ent Clinics Allergic 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[facility] rhinitis [facility]initis [facility] Osteoporos Osteoporos Problem Active [facility] is is [facility] Current Current Diagnosis Active [facility] chronic chronic [facility] - use of use of Memoria systemic systemic l steroids steroids Outpat i ent Clinics Tobacco Tobacco Diagnosis Active [facility] abuse abuse [facility] - counseling counseling Me moria l Outpati ent Clinics Gastro-eso Gastro-eso Problem Active [facility] phageal phageal [facility] - reflux reflux [facility] disease disease l without without Outpati esophagiti esophagiti en t s s Clinics Attention Attention Diagnosis Active [facility] deficit deficit [facility] disorder disorder Mem[facility] a l Outpati ent Clinics Hepatitis Hepatitis Problem Active [facility] Unspecifie Unspecifie Problem Active [facility] d viral d viral [facility] - hepatitis hepatitis Luis Carlos aurelia C with C with l hepatic hepatic Outpati coma coma ent Clinics Major Major Problem Active [facility] depressive depressive Tracey kes - disorder, disorder, Luis Carlos aurelia single single l episode episode Outpati ent Clinics Rash and Rash and Diagnosis Active [facility] nonspecifi nonspecifi Tracey kes - c skin c skin Memoria eruption eruption l Outpati ent Clinics 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 Recurrent da major Major [facility] depression Depression [facility] Panic Panic Problem Active [place] disorder Disorder da with with [facility] agoraphobi Agoraphobi al a a Health Outreac h Program Attention Attention Problem Active [place] deficit Deficit da hyperactiv Hyperactiv [facility] ity ity al disorder Disorder Health Outreac h Program Allergies, Adverse Reactions, Alerts Allergy Allergy Status Severity Reaction(s) Onset Inactive Treating Comm ents Source Name Type Date Date Clinician Faviola Flores Active Other (See 2017-03 Dystonic [facility] St ramide ty to Comments) 0-11 reaction [facility] - adverse 00:00: Medical reaction 00 Center s Reglan Allergy Active Severe Other [place] to da substanc [facility] Social History Social Habit Start Date Stop Date Quantity Comments Source History of tobacco 1998-07-09 Current every [facility] - use 00:[facility]:00 [facility] History [facility] - Alcohol Binge Medical [place] [facility] Sex Assigned At [facility] Cigarettes smoked 2018-08-03 2018-08-03 [facility] - current (pack per 00:00:00 00:00:00 Medical Center day) - Reported Cigarette 2018-08-03 2018[facility]00 00:00:00 [facility] History SDOH 2018-07-09 2018-07-[address] [facility] - Alcohol Frequency 00:00:00 00:00:00 [facility] Smoking Status Start Date Stop Date Source Former Smoker [facility] Out[facility] Current every day smoker 2018-08-03 00:00:00 [facility] Medications Ordered Filled Start Stop Current Ordering Indication Dosage Frequency Signature Comments Components Source Medication Medication Date Date Medication? Clinician (SIG) Name Name PARoxetine Yes 40mg QD Take [address] (PAXIL) 40 4-24 by mouth [facility] - MG tablet 02:10: every Medical 49 morning. Center clonazePAM Yes 1mg Q.5D Take [address] (KLONOPIN) 4-24 by mouth 2 [place] [facility] - 1 MG tablet 02:10: (two) Medic al 49 times Center daily. QUEtiapine Yes 25mg QD Take [address] (SEROQUEL) 4-24 by mouth [facility] - 25 MG 02:10: nightly. Medical tablet 49 [place] busPIRone Yes 15mg [id number] Take [address] (BUSPAR) 15 4-24 [id number] by mouth 3 [facility] - MG tablet 02:10: 3D (three) Medic al 49 times Center daily. hydrOXYzine Yes 25mg Take [address] (ATARAX) 25 4-17 by mouth. [place] [facility] - MG tablet 00:00: Medical 00 [place] albuterol Yes 2{puff} Inhale [address] HFA 4-02 puffs by [facility] - (PROVENTIL 00:00: mouth via Me dical HFA) 90 00 inhaler. [place] mcg/actuati on inhaler albuterol-i Yes 1{puff} Inhale [address] pratropium 4-02 puff by [facility] - (COMBIVENT 00:00: mouth via Me dical RESPIMAT) 00 inhaler. [place] 20-100 mcg/actuati on Mist inhaler esomeprazol 2020- No 20mg Take [address] e (NEXIUM) 4-02 04-01 by mouth. [place] [facility] - 20 MG 00:00: 23:59 Medical capsule 00 :00 [place] gabapentin 2020- No 300mg Take [address] (NEURONTIN) 2-27 02-27 mg by [facility] - 300 MG 00:00: 23:59 mouth. Medical capsule 00 :00 [place] HydrALAZINE HydrALAZINE Yes Satish [address] HCl HCl 12-09 Jaswinder with food [facility] - 00:00: Memoria 00 l Outpati ent Clinics Permethrin Permethrin 2018- No Satish [address] [facility] 9-24 10- Jaswinder applicatio [facility] - 00:00: 00:00 n to Memoria 00 :00 affected l area Outpati ent Clinics Amphetamine Amphetamine Yes Satish [address] -Dextroamph -Dextroamph Jaswinder in the [facility] - etamine etamine morning [facility]ori a and [facility] l [facility] HydrOXYzine HydrOXYzine Yes Satish [address] HCl HCl Jaswinder as needed [facility] Clonazepam Clonazepam Yes Satish [address] Jaswinder [facility] Seroquel Seroquel Yes Satish [address] Jaswinder in the [facility] - morning, 2 Memoria tablets at l bedtime Outpati ent Clinics PredniSONE PredniSONE Yes Satish [address] [facility] Jaswinder [facility] Duloxetine Duloxetine Yes Satish [address] HCl HCl Jaswinder [facility] BusPIRone BusPIRone Yes Satish [address] HCl HCl Jaswinder [facility]ics Fluocinonid Fluocinonid Yes Satish as [facility] e e Jaswinder directed [facility] Nexium Nexium Yes Satish [address] Jaswinder [facility] Proventil Proventil Yes Satish [address] [facility] HFA HFA Jaswinder needed [facility] ibuprofen ibuprofen Yes Satish [address] [facility] Restasis Restasis Yes Satish [address] Jaswinder into [facility] - affected Memoria eye l Outpati ent Clinics Klonopin Klonopin Yes Satish [address] [facility]aswinder [facility] Gabapentin Gabapentin Yes Satish [address] Jaswinder before [facility] - bedtime Memoria l Outpati ent Clinics Oxycodone Oxycodone Yes Satish [address] HCl HCl Jaswinder as needed [facility] Tizanidine Tizanidine Yes Satish [address] HCl HCl Jaswinder as needed [facility] acetaminoph acetaminoph No acetaminop [place] en 300 en 300 hen 300 da mg-codeine mg-codeine mg-codeine [facility] 30 mg 30 mg 30 mg al tablet tablet tablet Health Outreac h Program amlodipine amlodipine No amlodipine [place] 5 mg tablet 5 mg tablet 5 mg d a tablet [facility] amoxicillin amoxicillin No amoxicilli [place] 500 mg 500 mg n 500 mg da capsule capsule capsule [facility] Outreac h Program azithromyci azithromyci No azithromyc [place] n 250 mg n 250 mg in 250 mg da tablet tablet tablet [facility] Program azithromyci azithromyci No azithromyc [place] n 500 mg n 500 mg in 500 mg da tablet tablet tablet [facility] benzonatate benzonatate No benzonatat [place] 100 mg 100 mg e 100 mg da capsule capsule capsule [facility] Outreac [facility] Program buspirone buspirone No buspirone [place] 15 mg 15 mg 15 mg da tablet TAKE tablet TAKE tablet [facility] 1 TABLET BY 1 TABLET BY TAKE 1 al MOUTH THREE MOUTH THREE TABLET BY Health TIMES DAILY TIMES DAILY MOUTH Outreac THREE h TIMES Program DAILY cholestyram cholestyram No cholestyra [place] ine (with ine (with mine (with da sugar) 4 sugar) 4 sugar) 4 Epi scop gram oral gram oral gram oral al powder powder powder Health Outreac h Program clonazepam clonazepam No clonazepam [place] 1 mg tablet 1 mg tablet 1 mg d a TAKE 1 TAKE 1 tablet [facility] TABLET BY TABLET BY TAKE 1 al MOUTH THREE MOUTH THREE TABLET BY [employer] TIMES DAILY TIMES DAILY MOUTH Outreac THREE h TIMES Program DAILY Combivent Combivent No Combivent [place] Respimat 20 Respimat 20 Respimat da mcg-100 mcg-100 20 mcg-100 Epi scop mcg/actuati mcg/actuati mcg/actuat al on solution on solution ion H ealth for for solution Outreac inhalation inhalation for h inhalation Program dextroamphe dextroamphe No dextroamph [place] tamine-amph tamine-amph etamine-am da etamine 20 etamine 20 phetamine [facility] mg tablet mg tablet 20 mg al Take 1 Take 1 tablet Health tablet(s) tablet(s) Take 1 Out reac twice a day twice a day tablet(s) h by oral by oral twice a Progra m route. route. day by oral route. famotidine famotidine No famotidine [place] 40 mg 40 mg 40 mg da tablet tablet tablet [facility] Outreac [facility] Program gabapentin gabapentin No gabapentin [place] 300 mg 300 mg 300 mg da capsule capsule capsule [facility] p Take 1 Take 1 Take 1 al capsule capsule capsule Health every day every day every day Outreac by oral by oral by oral h route for route for route for Program 30 days. 30 days. 30 days. GaviLyte-G GaviLyte-G No GaviLyte-G [place] 236 236 236 da gram-22.74 gram-22.74 gram-22.74 [facility] gram-6.74 gram-6.74 gram-6.74 al gram-5.86 gram-5.86 gram-5.86 Health gram oral gram oral gram oral Outreac solution solution solution h Program hydrocodone hydrocodone No hydrocodon [place] 7.5 7.5 e 7.5 da mg-acetamin mg-acetamin mg-acetami [facility] ophen 325 ophen 325 nophen 325 al mg tablet mg tablet mg tablet Health Outreac h Program hydrocortis hydrocortis No hydrocorti [place] one 1 % one 1 % sone 1 % da topical topical topical [facility] p cream cream cream al Health Outreac h Program ibuprofen ibuprofen No ibuprofen [place] 600 mg 600 mg 600 mg da tablet tablet tablet [facility] al [facility] Outreac [facility] Program ibuprofen ibuprofen No ibuprofen [place] 800 mg 800 mg 800 mg da tablet tablet tablet [facility] Outreac [facility] Program ivermectin ivermectin No ivermectin [place] 1 % topical 1 % topical 1 % d a cream cream topical [facility] cream al Health Outreac h Program ivermectin ivermectin No ivermectin [place] 3 mg tablet 3 mg tablet 3 mg d a tablet [facility] al Health Outreac h Program Lexapro 20 Lexapro 20 No 1 Q1D Lexapro 20 [place] mg tablet mg tablet mg tablet da Take 1 Take 1 Take 1 [facility] tablet tablet tablet al every day every day every day Health by oral by oral by oral Outrea c route. route. route. h Program lidocaine-p lidocaine-p No lidocaine- [place] rilocaine rilocaine prilocaine da 2.5 %-2.5 % 2.5 %-2.5 % 2.5 %-2.5 [facility] topical topical % topical al cream cream cream Health Outreac h Program methocarbam methocarbam No methocarba [place] ol 500 mg ol 500 mg mol 500 mg da tablet tablet tablet [facility] al [facility] Outreac h Program metoprolol metoprolol No metoprolol [place] succinate succinate succinate da ER 25 mg ER 25 mg ER 25 mg Epi scop tablet,exte tablet,exte tablet,ext al nded nded ended Health release 24 release 24 release 24 Outreac hr hr hr h Program mupirocin 2 mupirocin 2 No mupirocin [place] % topical % topical 2 % da ointment ointment topical Ep[facility] type copy examiner ointment al Health Outreac h Program Narcan 4 Narcan 4 No Narcan 4 [place] mg/actuatio mg/actuatio mg/actuati da n nasal n nasal on nasal [facility] spray spray spray al Health Outreac h Program Nexium 20 Nexium 20 No Nexium 20 [place] mg mg mg da capsule,del capsule,del capsule,de [facility] ayed ayed layed al release release release Health Take 1 Take 1 Take 1 Outreac capsule capsule capsule h every day every day every day Program by oral by oral by oral route for route for route for 30 days. 30 days. 30 days. nystatin nystatin No nystatin [place] 100,000 100,000 100,000 da unit/gram unit/gram unit/gram [facility] topical topical topical al cream cream cream Health Outreac h Program ondansetron ondansetron No ondansetro [place] 8 mg 8 mg n 8 mg da disintegrat disintegrat disintegra [facility] ing tablet ing tablet ting al tablet Health Outreac h Program pantoprazol pantoprazol No pantoprazo [place] e 40 mg e 40 mg le 40 mg da tablet,tyler tablet,tyler tablet,del [facility] yed release yed release ayed a l release Health Outreac h Program permethrin permethrin No permethrin [place] 5 % topical 5 % topical 5 % d a cream cream topical [facility] cream al Health Outreac h Program prednisone prednisone No prednisone [place] 10 mg 10 mg 10 mg da tablet tablet tablet [facility] al [facility] Outreac [facility] Program prednisone prednisone No prednisone [place] 20 mg 20 mg 20 mg da tablet tablet tablet [facility] Outreac [facility] Program ProAir HFA ProAir HFA No ProAir HFA [place] 90 90 90 da mcg/actuati mcg/actuati mcg/actuat [facility] on aerosol on aerosol ion al inhaler inhaler aerosol Health inhaler Outreac h Program quetiapine quetiapine No 1 Q1D quetiapine [place] 100 mg 100 mg 100 mg da tablet Take tablet Take tablet [facility] 1 tablet 1 tablet Take 1 al every day every day tablet Hea lth by oral by oral every day Outr eac route at route at by oral h bedtime. bedtime. route at Pro gram bedtime. quetiapine quetiapine No 1 BID quetiapine [place] 50 mg 50 mg 50 mg da tablet Take tablet Take tablet [facility] 1 tablet 1 tablet Take 1 al twice a day twice a day tablet Health by oral by oral twice a Outrea c route. route. day by h oral Program route. Procedures This patient has no known procedures. Plan of Care Planned Activity Planned Date Details Comments Source Future Appointment 2019-10-12 Yovany Oli, [address] [place] [address] 15:15:[address]; , [place] [address] Program Future Appointment 2019-10-12 Yovany Oli, [address] 00:00:[address] , [place] [address] Program Future Appointment 2019-08-25 Catina Mcclendon [place] 14:30:[address]; , [place] [address] Program Instructions [facility] Outreach Program Encounters Start End Encounter Admission Attending Care Care Encounter Source Date/Time Date/Time Type Type Clinicians Facility Department ID 2019-08-06 2019-08-06 Telephone [facility] [id number] 00:00:00 00:00:00 [facility] [id number] [place] [id number] Professio [phone] [place] [address] [address] 2019-07-31 2019-07-31 Telephone [facility] [id number] 00:00:00 00:00:00 [facility] [id number] [place] [id number] Professio [phone] [address] 2019-07-29 2019-07-[facility] [id number] 00:00:00 00:00:00 [facility] [place] [id number] [place] [id number] Professio [phone] [address] 2019-07-13 2019-07-13 [facility] - [id number] M barbier 00:00:00 00:00:00 Ozzy Baird MD: Jew Epi scop 1700 [facility] [address] [facility] , Ph. [phone]--[phone] 2019-07-06 [facility] [id number] 00:00:00 00:00:00 [facility] [id number] [place] [id number] Professio [phone] [address] 2019-07-03 2019-07-03 [facility] [id number] 08:16:00 23:59:00 Encounter [facility] [place] [id number] [place] [id number] [place] [phone] [id number] 2019-07-03 2019-07-03 [facility] [id number] 08:00:00 08:15:00 Encounter [facility] [place] [id number] [place] [id number] [place] [id number] [id number] 2019-06-26 2019-06-26 Refill [facility] [id number] 00:00:00 00:00:00 [facility] [place] [id number] [place] [id number] Professio [phone] [address] 2019-06-16 2019-06-16 Office KAREN Ennis [id number] 14:13:13 15:30:59 Visit Billy AMBULATOR [id number] [place] [id number] 800 2019-04-06 2019-04-06 Yovany PERRY [place] - [id number] M at[place]or 00:00:00 00:00:00 Ozzy Baird MD: Jew [facility]pi sc[facility] [address] [facility] [address], [address], [facility] [place] Program [phone] , Ph. [phone] --[phone] 2019-01-05 Yovany PERRY [place] - [id number] M atagor 00:00:00 00:00:00 Ozzy Baird MD: Jew Epi scop [address] [facility] radha [address], [address], [facility] [place] Program [address] , Ph. [phone] --[phone] 2017-12-09 [facility] [id number] 13:15:00 13:15:00 [facility] Results Test Description Test Time Test Comments Results Result [facility] e MAYRA Sandoval, 3 2018-08-03 Reason for FINAL REPORT PATIENT VIEWS, LEFT 19:03:00 exam:->eval ID: [id number] post-op frx w/ TECHNIQUE: Three views pin of the left hand. INDICATION: eval post-op frx w/ pin. COMPARISON: Radiograph from 07/09/2018. FINDINGS/IMPRESSION:Per cutaneous pins in the proximal portion of the proximal phalanx of the small finger with slight apex palmar angulation. No significant callus formation. Mild osteophytosis of the carpometacarpal joint of the thumb, consistent with moderate degenerative change. Signed: Enoc Nunez MDRannmarie Verified Date/Time: 08/03/2018 19:03:56 Reading Location: [facility] C013Y MO Body Reading Room , ADOBE BLOCK [employer]KER IN 2018-07-17 Reason for PROCEDURE PERFORMED IN OR/30 MINUTE 18:30:00 exam:->ORIF O.R. - PLEASE REFER TO INCREMENTS Left little THE INTRAOPERATIVE finger REPORT. ESIUM 2018-07-10 07:39:00 Test Item Value Reference Range Interpretation Comme nts MAGNESIUM (BEAKER) (test code = 627) 2.2 mg/dL 1.6-2.6 Specimen slightly hemolyzed [id number] 07:39:00 Test Item Value Reference Range Interpretation Comments PHOSPHORUS (BEAKER) 4.1 mg/dL 2.3-4.7 Specimen slightly (test code = 604) hemolyzed BASIC METABOLIC [id number] 07:39:00 Test Item Value Reference Range Interpretation Comments SODIUM (BEAKER) 139 meq/L 136-145 (test code = 381) POTASSIUM (BEAKER) 4.1 meq/L 3.5-5.1 Specimen slightly (test code = 379) hemolyzed CHLORIDE (BEAKER) 106 meq/L 98-107 (test code = 382) CO2 (BEAKER) (test 27 meq/L 22-29 code = 355) BLOOD UREA NITROGEN 15 mg/dL 7-21 (BEAKER) (test code = 354) CREATININE (BEAKER) 0.83 mg/dL 0.57-1.25 Specimen slightly (test code = 358) hemolyzed GLUCOSE RANDOM 83 mg/dL 70-105 (BEAKER) (test code = 652) CALCIUM (BEAKER) 8.5 mg/dL 8.4-10.2 (test code = 697) EGFR (BEAKER) (test 71 mL/min/1.73 ESTIMA EDGAR GFR IS code = 1092) sq m NOT ACCURATE CREATININE CLEARANCE IN PREDICTING GLOMERULAR FILTRATION RATE . ESTIMATED GFR I S NOT APPLICABLE FOR DIALYSIS PATIEN TS. RAD, HAND, 3 VIEWS, [id number] 12:58:00Reason for exam:->left finger fractureFINAL REPORT Left [...] MDReport Verified Date/Time: 07/09/2018 12:58:27 Reading Location: [facility] B1 C013W ConsultReading Room [id number] 04:31:00 Test Item Value Reference Range Interpretation Comments PHOSPHORUS (BEAKER) (test code = 3.8 mg/dL 2.3-4.7 604) [id number] 04:31:00 Test Item Value Reference Range Interpretation Comments MAGNESIUM (BEAKER) (test code = 2.4 mg/dL 1.6-2.6 627) BASIC METABOLIC [id number] 04:31:00 Test Item Value Reference Range Interpretation Comments SODIUM (BEAKER) 139 meq/L 136-145 (test code = 381) POTASSIUM (BEAKER) 3.3 meq/L 3.5-5.1 L (test code = 379) CHLORIDE (BEAKER) 104 meq/L 98-107 (test code = 382) CO2 (BEAKER) (test 27 meq/L 22-29 code = 355) BLOOD UREA NITROGEN 18 mg/dL 7-21 (BEAKER) (test code = 354) CREATININE (BEAKER) 0.82 mg/dL 0.57-1.25 (test code = 358) GLUCOSE RANDOM 113 mg/dL 70-105 H (BEAKER) (test code = 652) CALCIUM (BEAKER) 8.8 mg/dL 8.4-10.2 (test code = 697) EGFR (BEAKER) (test 72 mL/min/1.73 ESTIMA EDGAR GFR IS code = 1092) sq m NOT ACCURATE CREATININE CLEARANCE IN PREDICTING GLOMERULAR FILTRATION RATE . ESTIMATED GFR I S NOT APPLICABLE FOR DIALYSIS PATIEN TS. CBC W/PLT COUNT & AUTO [id number] 04:05:00 Test Item Value Reference Range Interpretation Comments WHITE BLOOD CELL COUNT (BEAKER) 6.8 K/ L 3.5-10.5 (test code = 775) RED BLOOD CELL COUNT (BEAKER) 3.99 M/ L 3.93-5.22 (test code = 761) HEMOGLOBIN (BEAKER) (test code = 12.5 GM/DL 11.2-15.7 410) HEMATOCRIT (BEAKER) (test code = 37.1 % 34.1-44.9 411) MEAN CORPUSCULAR VOLUME (BEAKER) 93.0 fL 79.4-94.8 (test code = 753) MEAN CORPUSCULAR HEMOGLOBIN 31.3 pg 25.6-32.2 (BEAKER) (test code = 751) MEAN CORPUSCULAR HEMOGLOBIN CONC 33.7 GM/DL 32.2-35.5 (BEAKER) (test code = 752) RED CELL DISTRIBUTION WIDTH 12.6 % 11.7-14.4 (BEAKER) (test code = 412) PLATELET COUNT (BEAKER) (test 198 K/CU MM 150-450 code = 756) MEAN PLATELET VOLUME (BEAKER) 10.9 fL 9.4-12.3 (test code = 754) NUCLEATED RED BLOOD CELLS 0 /100 WBC 0-0 (BEAKER) (test code = 413) NEUTROPHILS RELATIVE PERCENT 42 % (BEAKER) (test code = 429) LYMPHOCYTES RELATIVE PERCENT 43 % (BEAKER) (test code = 430) MONOCYTES RELATIVE PERCENT 8 % (BEAKER) (test code = 431) EOSINOPHILS RELATIVE PERCENT 7 % (BEAKER) (test code = 432) BASOPHILS RELATIVE PERCENT 1 % (BEAKER) (test code = 437) NEUTROPHILS ABSOLUTE COUNT 2.82 K/ L 1.56-6.13 (BEAKER) (test code = 670) LYMPHOCYTES ABSOLUTE COUNT 2.90 K/ L 1.18-3.74 (BEAKER) (test code = 414) MONOCYTES ABSOLUTE COUNT (BEAKER) 0.56 K/ L 0.24-0.36 H (test code = 415) EOSINOPHILS ABSOLUTE COUNT 0.44 K/ L 0.04-0.36 H (BEAKER) (test code = 416) BASOPHILS ABSOLUTE COUNT (BEAKER) 0.04 K/ L 0.01-0.08 (test code = 417) IMMATURE GRANULOCYTES-RELATIVE 0 % 0-1 PERCENT (BEAKER) (test code = 2801)
--- OUTSIDE RECORDS SUMMARY | 2019-08-21 14:09 | XMS REPORT | Summary of Care ---
:1960 Author Organization [facility] - Health Address [address] [place] [address] Care Team Providers Name Role Phone Rika Troncoso MD Primary Care Provider Reason for Visit Reason Comments Refill Request Encounter Details Date Type Department Care Team Description 07/29/2019 Refill [facility] and Jossie Yeung MD Refill Request Adult Primary Care- [address] [place] [address] [address] [facility] , [phone] [address] [place] [address] Allergies Active Allergy Reactions Severity Noted Date Comments Metoclopramide Hcl Anaphylaxis 10/11/2016 documented as of this encounter (statuses as of 07/30/2019) Medications Medication Sig Dispensed Refills Start Date [...] 500 Take 1 tablet 40 tablet 0 07/30/2019 Active mg by mouth 4 tabletIndications: (four) times Intractable acute daily as post-traumatic needed headache, Worst (muscle pain headache of life, or spasm). Injury of head, initial encounter methocarbamol 500 Take 1 tablet 40 tablet 0 06/29/2019 02 Discontinued mg by mouth 4 0 (Reorder) tabletIndications: (four) times Intractable acute daily as post-traumatic needed headache, Worst (muscle pain headache of life, or spasm). Injury of head, initial encounter documented as of this encounter (statuses as of 07/30/2019) Active Problems Problem Noted Date ADHD 06/01/2019 Arthritis 06/01/2019 Anxiety 06/01/2019 GERD (gastroesophageal reflux disease) 06/01/2019 Painful orthopaedic hardware 05/12/2019 Overview: Added automatically from request for joanna kang [id number] documented as of this encounter (statuses as of 07/30/2019) Social History Tobacco Use Types Packs/Day Years [...] Travel End No recent travel history available. COVID-19 Exposure Response Date Recorded In the last month, have you been in contact with No / Unsure 07/03/2019 8:16 AM CDT someone who was confirmed or suspected to have Coronavirus / COVID-19? documented as of this encounter Last Filed Vital Signs Not on filedocumented in this encounter Plan of Treatment Date Type Specialty Care Team Description 09/14/2019 Office Visit Cardiology Janice Desai M D [address] [facility] [address] [place] [address] 15 [phone] 12/14/2019 Office Visit Cardiology Janice Desai M D [address] 15 [phone] Health Maintenance Due Date Last Done Comments [...] Effective Dates Phone Addre ss Type Group [facility] STAR xxxxxxxxx 2019-Present Medicaid COMM PLAN - PLUS MANAGED MEDICAID documented as of this encounter
--- OUTSIDE RECORDS SUMMARY | 2019-08-21 14:09 | XMS REPORT | Summary of Care ---
:1960 Author Organization [facility] - [facility] Address [address] [place] [address] Care Team Providers Name Role Phone Rika Troncoso MD Primary Care Provider Reason for Visit Reason Comments Rx Concern/Question Encounter Details Date Type Department Care Team Description 07/31/2019 Telephone [facility] Family Jossie Troncoso, Gabriela x Concern/Question Medicine - Carissa FRAGOSO [address] [place] [address] [place] [address] [place], [place] [phone] Allergies Active Allergy Reactions Severity Noted Date Comments Metoclopramide Hcl Anaphylaxis 10/11/2016 documented as of this encounter (statuses as of 08/05/2019) Medications Medication Sig Dispensed Refills Start Date [...] tablet (six) hours as needed for Pain. [id number]-x Take 1 tablet by 0 Active affeine [...] Take 1 tablet by 40 tablet 0 07/30/2019 Active tabletIndications: mouth 4 (four) Intractable acute times daily as post-traumatic needed (muscle headache, Worst pain or spasm). headache of life, Injury of head, initial encounter documented as of this encounter (statuses as of 08/05/2019) Active Problems Problem Noted Date ADHD 06/01/2019 Arthritis 06/01/2019 Anxiety 06/01/2019 GERD (gastroesophageal reflux disease) 06/01/2019 Painful orthopaedic hardware 05/12/2019 Overview: Added automatically from request for joanna pearl [id number] documented as of this encounter (statuses as of 08/05/2019) Social History Tobacco Use Types Packs/Day Years [...] Visit Cardiology Janice Desai M D [address] [place] [address] 15 12/14/2019 Office Visit Cardiology Janice Desai M D [address] [place] [address] 15 [phone] Health Maintenance Due Date Last Done Comments [...] Effective Dates Phone Addre ss Type Group [facility] STAR xxxxxxxxx 2019-Present Medicaid COMM PLAN - PLUS MANAGED MEDICAID documented as of this encounter
--- OUTSIDE RECORDS SUMMARY | 2019-08-21 14:10 | XMS REPORT | Summary of Care ---
:1960 Author Organization [facility] - [facility] Address [address] [place] [address] Care Team Providers Name Role Phone Rika Troncoso MD Primary Care Provider Reason for Referral (Routine) Status Reason Specialty Diagnoses / Referred By Referred To Procedures Contact Contact New Request Neurology Diagnoses Pain in both lower legs Jossie Troncoso Procedures CONSULT/REFERRAL NEUROLOGY MD Rika [address] [place] [address] [facility] [place] [address] Reason for Visit Reason Comments Rx Concern/Question Encounter Details Date Type Department Care Team Description 08/06/[address] [facility] Family Jossie Troncoso R x Concern/Question Medicine - Carissa FRAGOSO [address] [place] [address] Anders devine [address] [place] [address] [place] [address] [place] [address] [phone] Allergies Active Allergy Reactions Severity Noted Date Comments Metoclopramide Hcl Anaphylaxis 10/11/2016 documented as of this encounter (statuses as of 08/06/2019) Medications Medication Sig Dispensed Refills Start Date [...] tablet (six) hours as needed for Pain. [id number]-mrwckfkfqyjuc-q Take 1 tablet by 0 Active affeine [...] as of this encounter (statuses as of 08/06/2019) Active Problems Problem Noted Date ADHD 06/01/2019 Arthritis 06/01/2019 Anxiety 06/01/2019 GERD (gastroesophageal reflux disease) 06/01/2019 Painful orthopaedic hardware 05/12/2019 Overview: Added automatically from request for joanna kang [id number] documented as of this encounter (statuses as of 08/06/2019) Social History Tobacco Use Types Packs/Day Years [...] Visit Cardiology Janice Desai M D [address] [address] 07 [phone] 12/14/2019 Office Visit Cardiology Janice Desai M D [address] [address] Health Maintenance Due Date Last [...] filedocumented in this encounter Visit Diagnoses Diagnosis Pain in both lower legs - Primary documented in this encounter Insurance Payer Benefit Plan / Subscriber ID Effective Dates Phone Addre ss Type Group [facility] LIANNE xxxxxxxxx 2019-Present Medicaid COMM PLAN - PLUS MANAGED MEDICAID documented as of this encounter
[2019-08-21] MEDS ORDERED: hydrOXYzine HCL 25 MG TAB ONE (14:15)
[2019-08-21] MEDS ORDERED: CEFTRIAXONE/SWI 1gm 0 GM/0 ML SYR ONE (15:17)
[2019-08-21] MEDS ORDERED: CEFTRIAXONE 1000 MG/VIAL ONE (15:19)
[2019-08-21] MEDS ORDERED: LIDOCAINE 1% MPF 2 ML AMPULE ONE (15:19)
--- NOTE | 2019-08-21 15:26 | ER ---
Nurse's Notes [facility] Name: Lilian Quinteros Age: 58 yrs Sex: Female : 1960 Arrival Date: 08/21/2019 Time: 13:48 Bed 5 Private MD: Diagnosis: Urinary tract infection, site not specified;Rash and other nonspecific skin eruption Presentation: 08/20 13:58 Chief complaint: Patient states: Rash for 2 years, continuing on legs. Face rash is ll1 better. States she has had a UTI for over 2 weeks that we found here. States she took all her antibiotics. Pain to left lower back now. Coronavirus screen: Proceed with normal triage. Patient denies a cough. Patient denies shortness of breath or difficulty breathing. Patient denies measured and/or subjective temperature greater than 100.4F prior to today's visit. Patient denies travel on a cruise ship or to a country the [facility] currently lists as an affected area. Patient denies contact with known and/or suspected case of COVID-19. Ebola Screen: Patient denies travel to an Ebola-affected area in the 21 days before illness onset. Initial Sepsis Screen: Does the patient meet any 2 criteria? No. Patient's initial sepsis screen is negative. Risk Assessment: Do you want to hurt yourself or someone else? Patient reports no desire to harm self or others. Onset of symptoms was August 05, 2019. 13:58 Method Of Arrival: Ambulatory ll1 13:58 Acuity: SUZANNE 3 ll1 14:00 Initial Sepsis Screen: Does the patient have a suspected source of infection? No. iw Patient's initial sepsis screen is negative. Triage Assessment: 17:00 General: Appears in no apparent distress. Behavior is calm. iw Historical: - Allergies: 14:00 Reglan; ll1 14:00 HYDROCODONE; ll1 - PMHx: 14:00 ADD/ADHD; Anxiety; cardiac arrythmia; COPD; Depression; Hypertension; Pancreatitis; ll1 psychogenic parasitosis; - PSHx: 14:00 finger; ll1 - Immunization history:: Adult Immunizations up to date. - Social history:: Smoking status: Patient reports the use of cigarette tobacco products, smokes one-half pack cigarettes per day, Patient/guardian denies using alcohol, street drugs, IV drugs. Screenin:43 Abuse screen: Denies threats or abuse. Denies injuries from another. Nutritional iw screening: No deficits noted. Tuberculosis screening: No symptoms or risk factors identified. Fall Risk None identified. Assessment: 15:00 General: Appears in no apparent distress. Behavior is calm, cooperative. Pain: iw Complains of pain in right arm, left arm, right leg and left leg. Neuro: Level of Consciousness is awake, alert, obeys commands, Oriented to person, place, time, situation, Moves all extremities. Full function. Cardiovascular: Capillary refill < 3 seconds in bilateral fingers Patient's skin is warm and dry. Respiratory: Respiratory effort is even, unlabored, Respiratory pattern is regular, symmetrical. Derm: Rash noted that is itchy, papular, red. Musculoskeletal: Range of motion: intact in all extremities. Vital Signs: 13:58 BP 130 / 79; Pulse 86; Resp 16; Temp 98.5; Pulse Ox 97% ; Pain 10/10; ll1 ED Course: 13:48 Patient arrived in ED. [facility] 13:52 Zac James PA is PHCP. [facility] 13:52 Tremayne Lance MD is Attending Physician. [facility] 14:00 Triage completed. [facility] 14:00 Arm band placed on Patient placed in an exam room, on a stretcher. [facility] 14:04 Kalani Felder, JAE is Primary Nurse. iw 15:43 Patient has correct armband on for positive identification. iw 15:43 No provider procedures requiring assistance completed. Patient did not have IV access iw during this emergency room visit. Administered Medications: 14:20 Drug: hydrOXYzine 50 mg Route: PO; iw 15:05 Follow up: Response: No adverse reaction ph 15:23 Drug: Rocephin (cefTRIAXone) 1 grams Route: IM; Site: left gluteus; ph Outcome: 15:25 Discharge ordered by . [facility] 15:43 Discharged to home ambulatory. iw 15:43 Condition: good 15:43 Discharge instructions given to patient, Instructed on discharge instructions, follow up and referral plans. medication usage, Demonstrated understanding of instructions, follow-up care, medications, Prescriptions given X 4. 15:44 Patient left the ED. Signatures: Zac James PA PA Kalani Romero RN RN Rachel Weber RN RN Dieudonne Antonio fj1 Aureliano, Lynsay, RN RN ll1
--- NOTE | 2019-08-21 15:26 | EDPHYS ---
Physician Documentation [facility] Name: Lilian Quinteros Age: 58 yrs Sex: Female : 1960 Arrival Date: 08/21/2019 Time: 13:48 Bed 5 Private MD: ED Physician Tremayne Lance HPI: 08/20 14:00 This 58 yrs old Female presents to ER via Ambulatory with complaints of jmm Urinary Problem, Skin Problem. 14:00 The patient presents with urinary symptoms, dysuria. Onset: The symptoms/episode jmm began/occurred gradually, 2 week(s) ago. Modifying factors: The symptoms are alleviated by nothing, the symptoms are aggravated by nothing. This is a 58 year old female with a history kf anxiety, COPD, depression, that presents to the ED with complaints of dysuria, back pain, and chronic parasite infection. Patient was evaluated in the ED and prescribed abx. Patient states she lost her abx about half through treatment. . Historical: - Allergies: 14:00 Reglan; ll1 14:00 HYDROCODONE; ll1 - PMHx: 14:00 ADD/ADHD; Anxiety; cardiac arrythmia; COPD; Depression; Hypertension; Pancreatitis; ll1 psychogenic parasitosis; - PSHx: 14:00 finger; ll1 - Immunization history:: Adult Immunizations up to date. - Social history:: Smoking status: Patient reports the use of cigarette tobacco products, smokes one-half pack cigarettes per day, Patient/guardian denies using alcohol, street drugs, IV drugs. ROS: 14:00 Constitutional: Negative for fever, chills, and weight loss, Cardiovascular: Negative jmm for chest pain, palpitations, and edema, Respiratory: Negative for shortness of breath, cough, wheezing, and pleuritic chest pain. 14:00 : Positive for urinary symptoms. 14:00 Skin: Positive for rash. 14:00 All other systems are negative. Exam: 14:00 Constitutional: This is a well developed, well nourished patient who is awake, alert, jmm and in no acute distress. Head/Face: atraumatic. Eyes: EOMI, no conjunctival erythema appreciated ENT: Moist Mucus Membranes Neck: Trachea midline, Supple Chest/axilla: Normal chest wall appearance and motion. Cardiovascular: Regular rate and rhythm. No edema appreciated Respiratory: Normal respirations, no respiratory distress appreciated Abdomen/GI: Non distended, soft Back: Normal ROM 14:00 Skin: lesion(s), multiple crusting lesions noted to the lower extremities and ears bilaterally. . 14:00 Neuro: Orientation: is normal, Mentation: is normal, Memory: is normal. 14:00 Psych: Behavior/mood is pleasant, cooperative, anxious. Vital Signs: 13:58 BP 130 / 79; Pulse 86; Resp 16; Temp 98.5; Pulse Ox 97% ; Pain 10/10; ll1 MDM: 14:03 Patient medically screened. [facility] 15:24 Data reviewed: vital signs, nurses notes. Counseling: I had a detailed discussion with [facility] the patient and/or guardian regarding: the historical points, exam findings, and any diagnostic results supporting the discharge/admit diagnosis, lab results, the need for outpatient follow up, to return to the emergency department if symptoms worsen or persist or if there are any questions or concerns that arise at home. ED course: Patient is alert and non toxic in appearance in the ED. Patient is advised to follow up with dermatology for reevaluation of the rash. Patient is otherwise given strict return precautions. Patient understood and agrees with the plan of care. . 08/20 14:22 Order name: Urine Dipstick--Ancillary (enter results) 08/20 14:22 Order name: Urine --Ancillary (enter results) 08/20 14:00 Order name: Urine Dipstick-Ancillary (obtain specimen); Complete Time: 14:20 [facility] 08/20 14:57 Order name: Urine Culture [facility] 08/20 14:00 Order name: Urine Test (obtain specimen); Complete Time: 14:06 [facility] Administered Medications: 14:20 Drug: hydrOXYzine 50 mg Route: PO; iw 15:05 Follow up: Response: No adverse reaction ph 15:23 Drug: Rocephin (cefTRIAXone) 1 grams Route: IM; Site: left gluteus; ph Disposition: 16:37 Co-signature as Attending Physician, Tremayne Lance MD. rn Disposition: 08/21/19 15:25 Discharged to Home. Impression: Urinary tract infection, site not specified, Rash and other nonspecific skin eruption. - Condition is Stable. - Discharge Instructions: Rash, Urinary Tract Infection, Adult. - Prescriptions for ivermectin 3 mg Oral tablet - take 4 tablet by ORAL route one time x1 dose; 4 tablet. Cephalexin 500 mg Oral Capsule - take 1 capsule by ORAL route every 6 hours for 10 days; 40 capsule. Hydroxyzine HCl 50 mg Oral Tablet - take 1 tablet by ORAL route every 8 hours As needed; 20 tablet. Elimite 5 % Topical Cream - apply 1 application by TOPICAL route one time Wash after 12 hours.; 60 gram. - Medication Reconciliation Form, Thank You Letter, Antibiotic Education, Prescription Opioid Use form. - Follow up: Private Physician; When: 2 - 3 days; Reason: Recheck today's complaints, Continuance of care, Re-evaluation by your physician. Signatures: Dispatcher [employer] EDMS Zac James PA PA jmm Williams, Irene, RN RN iw Nieto, Roman, MD MD rn Hall, Patricia, RN RN ph Lewis, Lynsay, RN RN ll1 Corrections: (The following items were deleted from the chart) 15:44 15:25 08/21/2019 15:25 Discharged to Home. Impression: Urinary tract infection, site iw not specified; Rash and other nonspecific skin eruption. Condition is Stable. Forms are Medication Reconciliation Form, Thank You Letter, Antibiotic Education, Prescription Opioid Use. Follow up: Private Physician; When: 2 - 3 days; Reason: Recheck today's complaints, Continuance of care, Re-evaluation by your physician. cherri
[2019-08-21 15:49] VITALS: BP 130/79; TEMP 98.5; O2SAT 97
[2019-08-21 16:11] LABS: Urine Blood NEGATIVE (NEG); Urine Glucose NEGATIVE (NEG); Urine Protein NEGATIVE (NEG); Urine Specific Gravity 1.015 (1.005-1.030)
== END 2019-08-21 15:44 | disposition home or self-care (01) ==
LOC: ER 13:40
DX: N39.0 Urinary tract infection, site not specified (principal); R21 Rash and other nonspecific skin eruption; Z88.6 Allergy status to analgesic agent; F17.210 Nicotine dependence, cigarettes, uncomplicated
CPT/HCPCS: 87088; 87086; 81025; 87077; 87186; 81003; 96372; 99283; J2001; J0696

== ENCOUNTER 2019-09-29 10:47 | Emergency (ER) | payer OTHER ==
[2019-09-29] MEDS ORDERED: METHYLPREDNISOLONE 125 MG INJ ONE (11:38)
[2019-09-29] MEDS ORDERED: MAGNESIUM SULFATE 1 gm IVPB 1 GM/100 ML BAG IV ONE (11:38)
[2019-09-29 12:00] LABS: Absolute Lymphocytes (CBC) 1.6 K/uL (0.7-4.9); Basophils % 0.3 % (0-1.3); Hematocrit 36.8 % (36.0-45.0); Lymphocytes % 23.3 % (15.3-44.8); RBC Red Blood Cell Count 4.21 M/uL (3.86-4.86)
--- NOTE | 2019-09-29 12:03 | RAD REPORT ---
EXAM DESCRIPTION: RAD - Chest Single View - 09/29/2019 11:50 am CLINICAL HISTORY: COUGH Chest pain. COMPARISON: Chest Pa And Lat (2 Views) dated 04/15/2019 FINDINGS: Portable technique limits examination quality. Bilateral interstitial prominence is present compatible with interstitial pneumonitis. Superimposed o pacity in the right lung base likely represents pneumonia. The heart is normal in size. No displaced fractures.
[2019-09-29 12:12] LABS: BUN Blood Urea Nitrogen 18 mg/dL (7-18); Bicarbonate 24 mmol/L (21-32); Glucose Level 103 mg/dL (74-106); Sodium Level 138 mmol/L (136-145)
[2019-09-29 12:13] LABS: Potassium 3.8 mmol/L (3.5-5.1)
--- OUTSIDE RECORDS SUMMARY | 2019-09-29 15:07 | XMS REPORT | Clinical Summary ---
:1960 Author Organization [facility] Address [address] [place] [address] Care Team Providers Name Role Phone Unavailable [...] 1 disorder 05/12/2018 Overview: Overview: Follows psychiatrist. 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 Pullman Device Shelf Model / Identifier Expiration Serial / Date Lot Wire K [id number] - [id number] IMPLANTS Left: MICROAIRE SURG [id number] / Implanted: Qty: 3 on 07/09/2018 by Deanne Arcos MD Finger INSTR / [id number] Results Not on fileafter 09/28/2018 Insurance Payer Benefit Plan / Subscriber ID Type Phone Address Group MEDICAID - MEDICAID [facility] COMM STAR xxxxxxxxx Medicaid Contracted MGD CARE PLAN Advance Directives For more information, please contact:[place] [address] [address] [place], [place] [phone] Code Status Date Activated Date Inactivated Comments Full Code 07/09/2018 1:20 AM 07/10/2018 3:56 PM This code status was determined by: Patient
--- OUTSIDE RECORDS SUMMARY | 2019-09-29 15:09 | XMS REPORT | Continuity of Care Document ---
:1960 Author Organization [facility] t Address [address] [place] [address] Care Team Providers Name Role Phone Radha Puentes RN Attending Clinician Unavailable Wanda GONZALESP Attending Clinician Lab, Fam Pob I Attending Clinician Unavailable Kenton Ennis MD Attending Clinician Rika Troncoso MD Attending Clinician JOSE ALTAMIRANO Attending Clinician Unavailable JOSE ALTAMIRANO Admitting Clinician Unavailable Problems Condition Condition Condition Status Onset Resolution Last Treating Co mments Source Name Details Category Date Date Treatment Clinician Date 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 4-24 [facility]: [place] [address] Center GERD GERD Disease Active [facility] (gastroeso (gastroeso 3-20 Tracey kes - phageal phageal 00:00: Medical reflux reflux 00 Center disease) disease) Hepatitis Hepatitis Disease Active [facility] C, chronic C, chronic 3-20 Tracey kes - 00:00: Medical 00 Center Bipolar 1 Bipolar 1 Disease Active Overview: [facility] disorder disorder 2- Overview: [place] [facility] - 00:00: [facility] Problem Active 2017-03 [place] scabies Scabies 05-15 [facility] Chronic Chronic Problem Active 2017-03 [place] obstructiv Obstructiv 2 da e lung e Lung 00:00: [facility] [...] Recurrent da major Major [facility] depression Depression al [facility] Out[facility] Program Panic Panic Problem Active [...] Faviola Flores Active Other (See 2017-[address] ramide ty to Comments) 0-11 reaction [facility] - adverse 00:00: Medical reaction 00 Center s Reglan Allergy Active Severe Other [place] to da substanc [facility] Social History Social Habit Start Date Stop Date Quantity Comments Source History of tobacco 1998-07-09 Current every [facility] - use 00:00:00 day smoker [facility] Std Drinks [facility] History SD[facility] - Alcohol Binge Medical [place] [facility] Sex Assigned At [facility] Cigarettes smoked 2018-08-03 2018-08-[address] [facility] [address] kes - current (pack per 00:00:00 00:00:00 Medical Center day) - Reported Cigarette 2018-08-03 2018-08-[address] [facility] [address] [facility] - pack-years 00:00:00 00:00:00 Medical Center History SDOH 2018-07-09 2018-07-[address] [facility] - Alcohol Frequency 00:00:00 00:00:00 [facility] Center Smoking Status Start Date Stop Date Source Former Smoker [facility] Current every day smoker 2018-08-03 00:00:00 [facility] Medications Ordered Filled Start Stop Current [...] 25 MG 02:10: nightly. Medical tablet 49 Center busPIRone Yes 15mg [id number] Take [address] (BUSPAR) 15 4-24 [id number] by mouth 3 [facility] - MG tablet 02:10: 3D (three) Medic al 49 times Center daily. hydrOXYzine Yes 25mg Take [address] (ATARAX) 25 4-17 by mouth. [place] - MG tablet 00:00: Medical 00 [place] albuterol Yes 2{puff} Inhale [address] HFA 4-02 puffs by [facility] - (PROVENTIL 00:00: mouth via Me dical HFA) 90 00 inhaler. [place] mcg/actuati on inhaler albuterol-i Yes 1{puff} Inhale [address] pratropium 4-02 puff by [facility] - (COMBIVENT 00:00: mouth via Me dical RESPIMAT) 00 inhaler. [place] 20-100 mcg/actuati on Mist inhaler esomeprazol 2019- No 20mg Take [address] e (NEXIUM) 4-02 04-01 by mouth. [place] - 20 MG 00:00: 23:59 Medical capsule 00 :00 [place] gabapentin 2019- No 300mg Take [address] (NEURONTIN) 2-27 02-27 mg by [facility] - 300 MG 00:00: 23:59 mouth. Medical capsule 00 :00 [place] HydrALAZINE HydrALAZINE Yes Satish [address] HCl HCl 12-09 Jaswinder with food [facility] - 00:00: [facility] 00 l Outpati ent Clinics Permethrin Permethrin 2018- No Satish [address] [facility] -24 10- Jaswinder applicatio [facility] - 00:00: 00:00 n to Memoria 00 :00 affected l area Outpati ent Clinics Amphetamine Amphetamine Yes Satish [address] -Dextroamph -Dextroamph Jaswinder in the [facility] - etamine etamine morning Memori a and 1 tab l at noon Outpati ent Clinics HydrOXYzine HydrOXYzine Yes Satish 1 [...] mg da capsule capsule capsule [facility] azithromyci azithromyci No azithromyc [place] n 250 mg n 250 mg in 250 mg da tablet tablet tablet [facility] azithromyci azithromyci No azithromyc [place] n 500 mg n 500 mg in 500 mg da tablet tablet tablet [facility] benzonatate benzonatate No benzonatat [place] 100 mg 100 mg e 100 mg da capsule capsule capsule [facility] buspirone buspirone No [...] 40 mg da tablet tablet tablet [facility] gabapentin gabapentin No [...] mg 800 mg da tablet tablet tablet [facility] ivermectin ivermectin [...] 2 % da ointment ointment topical 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 ointment al Health Outreac h Program Narcan [...] Date Details Comments Source Future Appointment 2019-10-12 15:15:00 Yovany Baird, [address] , [place] Program [phone] Future Appointment 2019-10-12 00:00:00 Yovany Baird, [address] , [place] Program [address] Instructions [facility] Outreach Program Encounters Start End Encounter Admission Attending Care Care Encounter Source Date/Time Date/Time Type Type Clinicians Facility Department ID 2019-09-27 2019-09-27 Telephone Radha SALAS [id number] 00:00:00 00:00:00 MAKENZIE Puentes [id number] [facility] [id number] 2019-09-27 2019-09-27 Telephone ALICE Muñoz [id number] 00:00:00 00:00:00 [facility] [id number] [place] [id number] [place] [phone] [facility] Office Building One 2019-09-25 2019-09-25 Laboratory Lab, Research [facility] [id number] 15:46:13 16:06:13 Only Fam Pob I Health [id number] [place] [id number] Professio [phone] [place] [address] [facility] 2019-09-01 2019-09-01 Office KAREN Ennis [id number] 16:08:38 16:58:06 Visit [place] AMBULATOR [id number] Kenton Y [id number] [id number] 2019-08-26 2019-08-26 [facility] [id number] 00:00:00 00:00:00 Wondiful A [place] [id number] [place] [id number] Professio [phone] [address] 2019-08-06 2019-08-06 [facility] [id number] 00:00:00 00:00:00 Wondiful A Health [id number] [place] [id number] Professio [phone] [place] [address] [facility] 2019-07-31 2019-07-31 [place] [facility] [id number] 00:00:00 00:00:00 Wondiful A Health [id number] [place] [id number] Professio [phone] [place] [address] Office [facility] 2019-07-29 2019-07-29 [facility] [id number] 00:00:00 00:00:00 Wondiful A [place] [id number] [place] [id number] Professio [id number] [address] 2019-07-13 2019-07-13 Yovany VICKY [place] - [id number] M atagor 00:00:00 00:00:00 Ozzy Baird MD: Catholic Epi scop [address] [facility] Healt Lizz [facility] [address] [facility] , Ph. ([phone]) 2019-07-06 2019-07-06 [facility] [id number] 00:00:00 00:00:00 Wondiful A Health [id number] [place] [id number] Professio [phone] [place] [address] Office Building One 2019-07-03 2019-07-03 [facility] [id number] 08:16:00 23:59:00 Encounter Wondiful A [place] [id number] [place] 4.2.7.2.686 [place] [phone] [id number] 2019-07-03 2019-07-03 [facility] [id number] 08:00:00 08:15:00 Encounter Wondiful A [place] [id number] [place] 4.2.7.2.686 [place] [id number] 2019-06-26 2019-06-26 Refill [facility] [id number] 00:00:00 00:00:00 Wondiful A [place] [id number] [place] 4.2.7.2.686 Professio [phone] [address] 2019-06-16 2019-06-16 Office LoliTIFFANYShekhar [id number] 14:13:13 15:30:59 Visit Billy AMBULATOR [id number] [place] Joe 0.2.7.2.686 [id number] 2019-04-06 2019-04-06 Yovany PERRY [place] - [id number] M luis 00:00:00 00:00:00 Ozzy Baird MD: Catholic Epi scop [address] [facility] VICKY [facility] [address], [address], Health Outre [facility] [address] , Ph. [phone]) 2019-01-05 2019-01-05 [facility] [place] - [id number] M amiragor 00:00:00 00:00:00 Ozzy Baird MD: Catholic Epi scop [address] [facility] [address], Health Outre [facility] [place] Program [address] , Ph. 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 - PLEASE REFER TO INCREMENTS Left little THE INTRAOPERATIVE finger REPORT. ESIUM 2018-07-10 07:39:00 Test Item Value Reference Range Interpretation Comme nts MAGNESIUM (BEAKER) (test code = 627) 2.2 mg/dL 1.6-2.6 Specimen slightly hemolyzed [id number] 07:39:00 Test Item Value Reference Range Interpretation Comments PHOSPHORUS (BEAKER) 4.1 mg/dL 2.3-4.7 Specimen slightly (test code = 604) hemolyzed BASIC METABOLIC [id number] 07:39:00 Test Item Value Reference Range Interpretation [...] I S NOT APPLICABLE FOR DIALYSIS PATIEN TSNakia GRAY, HAND, 3 VIEWS, [id number] 12:58:00Reason for exam:->left finger fractureFINAL REPORT Left [...] MDReport Verified Date/Time: 07/09/2018 12:58:27 Reading Location: [address] ConsultReading Room [id number] 04:31:00 Test Item Value Reference Range Interpretation Comments PHOSPHORUS (BEAKER) (test code = 3.8 mg/dL 2.3-4.7 604) [id number] 04:31:00 Test Item Value Reference Range Interpretation Comments MAGNESIUM (BEAKER) (test code = 2.4 mg/dL 1.6-2.6 627) BASIC METABOLIC [id number] 04:31:00 Test Item Value Reference Range Interpretation [...] PATIEN TS. CBC W/PLT COUNT & AUTO [id number] 04:05:00 Test Item Value Reference Range Interpretation [...] % 0-1 PERCENT (BEAKER) (test code = 4760)
--- OUTSIDE RECORDS SUMMARY | 2019-09-29 15:12 | XMS REPORT | Summary of Care ---
:1960 Author Organization [facility] - Health Address [address] [place] [address] Care Team Providers Name Role Phone Rika Troncoso MD Primary Care Provider Reason for Visit Reason Comments Refill Request Encounter Details Date Type Department Care Team Description 08/26/2019 Refill [facility] Pediatric and Jossie Yeung MD Refill Request Adult Primary Care- [address] [place] [address] [place] [address], [phone] [address] [place] [address] Allergies Active Allergy Reactions Severity Noted Date Comments Metoclopramide Hcl Anaphylaxis 10/11/2016 documented as of this encounter (statuses as of 08/27/2019) Medications Medication Sig Dispensed Refills Start Date [...] 500 Take 1 tablet 40 tablet 0 08/27/2019 Active mg by mouth 4 tabletIndications: (four) times Intractable acute daily as post-traumatic needed headache, Worst (muscle pain headache of life, or spasm). Injury of head, initial encounter methocarbamol 500 Take 1 tablet 40 tablet 0 07/30/2019 02 Discontinued mg by mouth 4 0 (Reorder) tabletIndications: (four) times Intractable acute daily as post-traumatic needed headache, Worst (muscle pain headache of life, or spasm). Injury of head, initial encounter documented as of this encounter (statuses as of 08/27/2019) Active Problems Problem Noted Date ADHD 06/01/2019 Arthritis 06/01/2019 Anxiety 06/01/2019 GERD (gastroesophageal reflux disease) 06/01/2019 Painful orthopaedic hardware 05/12/2019 Overview: Added automatically from request for joanna kang [id number] documented as of this encounter (statuses as of 08/27/2019) Social History Tobacco Use Types Packs/Day Years [...] Visit Cardiology Janice Desai M D [address] 77 61 [phone] 12/14/2019 Office Visit Cardiology Janice Desai M D [address] [address] Health Maintenance Due Date [...] 54-80 with 30 + pack year history Depression Screening 05/17/2020 05/18/2019 INFLUENZA VACCINE Completed 11/28/2018, 04/08/2017 documented as of this encounter Results Not on filedocumented in this encounter Visit Diagnoses Diagnosis Intractable acute post-traumatic headach e Acute post-traumatic headache Worst headache of life Headache Injury of head, initial encounter documented in this encounter Insurance Payer Benefit Plan / Subscriber ID Effective Dates Phone Addre ss [facility] xxxxxxxxx 2019-Present Medicaid COMM PLAN - PLUS MANAGED MEDICAID documented as of this encounter
--- OUTSIDE RECORDS SUMMARY | 2019-09-29 15:13 | XMS REPORT | Summary of Care ---
:1960 Author Organization [facility] Address [address] [place] [address] Care Team Providers Name Role Phone Rika Troncoso MD Primary Care Provider Reason for Visit Reason Comments Results COVID 19 Encounter Details Date Type Department Care Team Description 09/27/2019 Telephone [facility]ESS [facility]ENTER Radha Puentes, Results (COVID 19) [address] [place] Cinda, RN Mosc[place] [address] [place], [place] [facility] [address] [place] [id number] Allergies Active Allergy Reactions Severity Noted Date Comments Metoclopramide Hcl Anaphylaxis 10/11/2016 documented as of this encounter (statuses as of 09/27/2019) Medications Medication Sig Dispensed Refills Start Date [...] tablet (six) hours as needed for Pain. [id number]-e Take 1 tablet by 0 Active affeine [...] Take 1 tablet by 40 tablet 0 08/27/2019 Active tabletIndications: mouth 4 (four) Intractable acute times daily as post-traumatic needed (muscle headache, Worst pain or spasm). headache of life, Injury of head, initial encounter documented as of this encounter (statuses as of 09/27/2019) Active Problems Problem Noted Date ADHD 06/01/2019 Arthritis 06/01/2019 Anxiety 06/01/2019 GERD (gastroesophageal reflux disease) 06/01/2019 Painful orthopaedic hardware 05/12/2019 Overview: Added automatically from request for joanna pearl [id number] documented as of this encounter (statuses as of 09/27/2019) Social History Tobacco Use Types Packs/Day Years [...] month, have you been in contact with Yes 09/25/2019 2:28 PM CDT someone who was confirmed or suspected to have Coronavirus / COVID-19? documented as of this encounter Last Filed Vital Signs Not on filedocumented in this encounter Plan of Treatment Date Type Specialty Care Team Description 12/14/2019 Office Visit Cardiology Janice Desai M D [address] [facility] [address] [place] [address] [phone] Health Maintenance Due Date Last Done Comments [...] 30 + pack year history INFLUENZA VACCINE (#1) 2019 11/28/2018, 04/08/2017 Depression Screening 05/17/2020 05/18/2019 documented as of this encounter Results Not on filedocumented in this encounter Additional Health Concerns Infection Onset Date Last Indicated Resolved Time COVID-19 Confirmed 09/25/2019 09/25/2019 documented as of this encounter Insurance Payer Benefit Plan / Subscriber ID Effective Dates Phone Addre ss Type Group [facility] xxxxxxxxx 2019-Present Medicaid COMM PLAN - PLUS MANAGED MEDICAID documented as of this encounter
--- OUTSIDE RECORDS SUMMARY | 2019-09-29 15:13 | XMS REPORT | Summary of Care ---
:1960 Author Organization [facility] - Health Address [address] [place] [address] Care Team Providers Name Role Phone Rika Troncoso MD Primary Care Provider Reason for Visit Reason Comments Exposure LAB Encounter Details Date Type Department Care Team Description 09/25/2019 Laboratory Only [facility] Family Brenda Muñoz, OUTPATIENT FACILITY PHYSICAL THERAPIST [address] [place] [address] Suspected 2019 [facility], Adc Fam Pob I Coronavirus [address] [facility] Infection ([address] Drive Dx) [place] [address] Allergies Active Allergy Reactions Severity Noted Date Comments Metoclopramide Hcl Anaphylaxis 10/11/2016 documented as of this encounter (statuses as of 09/25/2019) Medications Medication Sig Dispensed Refills Start Date [...] tablet (six) hours as needed for Pain. yhwoyux-rftysmtpepaia-f Take 1 tablet by 0 Active affeine [...] as of this encounter (statuses as of 09/25/2019) Active Problems Problem Noted Date ADHD 06/01/2019 Arthritis 06/01/2019 Anxiety 06/01/2019 GERD (gastroesophageal reflux disease) 06/01/2019 Painful orthopaedic hardware 05/12/2019 Overview: Added automatically from request for joanna kang [id number] documented as of this encounter (statuses as of 09/25/2019) Social History Tobacco Use Types Packs/Day Years [...] Office Visit Cardiology Janice Desai M D [address] [place] [address] [phone] Name Type Priority Associated Diagnoses Order S chedule COVID-19 (PCR MOLECULAR LAB Routine Suspected 2018 No salvador Ordered: 09/25/2019 TESTING) Coronavirus Infection Health Maintenance Due Date Last Done Comments [...] filedocumented in this encounter Visit Diagnoses Diagnosis Suspected 2018 Novel Coronavirus Infecti on - Primary documented in this encounter Insurance Payer Benefit Plan / Subscriber ID Effective Dates Phone Addre ss Type Group [facility] ST[facility] xxxxxxxxx 2019-Present Medicaid COMM PLAN - PLUS MANAGED MEDICAID documented as of this encounter
--- OUTSIDE RECORDS SUMMARY | 2019-09-29 15:13 | XMS REPORT | Summary of Care ---
:1960 Author Organization [facility] [place] [address] Care Team Providers Name Role Phone Jesus Primary Care Provider Reason for Referral Consult, Test & Treat (Routine) Status Reason Specialty Diagnoses / Procedures Referred By R anna marieerred To Contact Contact Pending Consult, Neuropsychology Diagnoses Attention deficit [place], [place] Test, and Procedures DC NEUROBEHAVIORAL STATUS XM PHYS/QHP 1ST HOUR DC NEUROBEHAVIORAL STATUS XM PHYS/QHP EA ADDL HOUR DC NEUROPSYCHOLOGICAL TST EVAL PHYS/QHP 1ST HOUR DC NEUROPSYCHOLOGICAL TST EVAL PHYS/QHP EA ADDL HR [place] Neuropsycholo Treat DC PSYL/NRPSYCL TST PHYS/QHP 2+ TST 1ST 30 MIN DC PSYCL/NRPSYCL TST PHYS/QHP 2+ TST EA ADDL 30 MIN DC PSYCL/NRPSYCL TST TECH 2+ TST 1ST 30 MIN DC PSYCL/NRPSYCL TST TECH 2+ TST EA ADDL 30 MIN MD Kenton gy [address], [place], [place] [address] [address] [place] Phone: [phone] Phone: Reason for Visit Reason Comments Follow Up recent ER visit Encounter Details Date Type Department Care Team Description [facility] Neurology MD [place] visit[facility] [address] [facility] [address], [address] [place], [place] [address] [id number] [place] [address] Allergies Active Allergy Reactions Severity Noted Date Comments Metoclopramide Other (See Comments), High 10/11/2016 Dyst onic reaction Anaphylaxis Other reaction( s): Other documented as of this encounter (statuses as of 09/01/2019) Medications Medication Sig Dispensed Refills Start Date End Date Status amphetamine-dextroamph Take 5 mg by mouth 0 Active etamine (ADDERALL, two times daily. 5MG,) 5 MG tablet quetiapine (SEROQUEL) Take by mouth two 0 Active 50 MG tablet times daily. 50 mg AM and 100 mg PM clonazepam (KLONOPIN) Take 0.5 mg by 0 Active 0.5 MG tablet mouth two times daily. Multiple Take by mouth. 0 Acti ve Vitamins-Minerals (MULTIVITAMIN ADULT OR) gabapentin (NEURONTIN) Take 1 Cap by 90 Cap 0 12/26/2017 Active 300 MG mouth 3 times capsuleIndications: daily. Neck pain Escitalopram Oxalate Take by mouth. 0 Active (LEXAPRO OR) ibuprofen (MOTRIN) 600 Take 600 mg by 0 Active MG tablet mouth every 6 hours as needed for Pain. hydrocodone-acetaminop Take 1 Tab by 120 Tab 0 08/07/2019 Active hen (NORCO) 7.5-325 MG mouth every 6 per tabletIndications: hours as needed Polyarthritis, Neck for Pain. pain cephALEXin (KEFLEX) TK ONE C PO Q 6 H 0 08/21/2019 Active 500 MG capsule FOR 10 DAYS busPIRone (BUSPAR) 15 buspirone 15 mg tablet 0 Active MG tablet TAKE 1 TABLET BY MOUTH THREE TIMES DAILY metoprolol (TOPROL-XL) TK 1 T PO D 0 08/12/2019 Active 25 MG XL tablet pantoprazole Take 40 mg by 0 07/27/2019 Ac tive (PROTONIX) 40 MG mouth. tablet esomeprazole (NEXIUM) 0 08/06/2019 Active 20 MG capsule documented as of this encounter (statuses as of 09/01/2019) Active Problems Problem Noted Date WEIGHT LOSS 09/23/2006 POLYARTHRALGIA 09/23/2006 ABNORMAL LFT'S 07/12/2006 DEPRESSION 07/12/2006 HEPATITIS C, CHRONIC documented as of this encounter (statuses as of 09/01/2019) Social History Tobacco Use Types Packs/Day Years [...] been in contact with No / Unsure 09/01/2019 4:08 PM CDT someone who was confirmed or suspected to have Coronavirus / COVID-19? documented as of this encounter Last Filed Vital Signs Vital Sign Reading Time Taken Comments Blood Pressure 140/92 09/01/2019 4:17 PM CDT Pulse 86 09/01/2019 4:17 PM CDT Temperature - - Respiratory Rate - - Oxygen Saturation - - Inhaled Oxygen Concentration - - Weight 68.5 kg (151 lb 0.2 oz) 09/01/2019 4:17 PM CDT Height 170.2 cm (5' 7") 09/01/2019 4:17 PM CDT Body Mass Index 23.65 09/01/2019 4:17 PM CDT documented in this encounter Progress Notes Billy Ennis MD - 09/01/2019 4:00 PM CDT Neuro-Pain Follow- up Note 09/01/19 Chief Complaint (s) 1) Polyarthritic pain 2) Neck/Back Pain 3) Anxiety Subjective: Lilian Quinteros is a 58 y.o. right-handed woman who presents today with the following complaints: 1) Polyarthritic pain. Pt is c/o pain in the neck, neck, shoulder, wrists, fingers. These areas ofpain has been a chronic problem. At the last visit she was dx with OA as the source. Pt relates a hx of multiple trauma over the years. Pt has been on episodic doses on Davis with moderate relief. Prior to that she was on Tylenol#4 prn. Pain level today is 6/10 overall with meds on board. 2) Neck/back Pain. As above. 3) Anxiety. Pt reports high anxiety. Her kids tells her she talks too fast, too loud and often shouts at them. They also tells her she is forgetful. She is under the care of a psychiatrist in [place]. Past Medical History: Diagnosis Date ADHD Chronic neck pain COPD (chronic obstructive pulmonary disease) (HCCode) GERD (gastroesophageal reflux disease) H/O seasonal allergies Hepatitis C Irritable bowel disease Osteoarthritis Past Surgical History: Procedure Laterality Date HX CERVIX SURGERY Cryotherapy for cervical dysplasia HX OTHER SURGICAL HISTORY 2020 ORIF left hand Current Outpatient Medications: amphetamine-dextroamphetamine (ADDERALL, 5MG,) 5 MG tablet, Take 5 mg by mouth two times daily., Disp: , Rfl: busPIRone (BUSPAR) 15 MG tablet, buspirone 15 mg tablet TAKE 1 TABLET BY MOUTH THREE TIMES DAILY, Disp: , Rfl: cephALEXin (KEFLEX) 500 MG capsule, TK ONE C PO Q 6 H FOR 10 DAYS, Disp: , Rfl: clonazepam (KLONOPIN) 0.5 MG tablet, Take 0.5 mg by mouth two times daily., Disp: , Rfl: Escitalopram Oxalate (LEXAPRO OR), Take by mouth., Disp: , Rfl: esomeprazole (NEXIUM) 20 MG capsule, , Disp: , Rfl: gabapentin (NEURONTIN) 300 MG capsule, Take 1 Cap by mouth 3 times daily., Disp: 90 Cap, Rfl: 0 hydrocodone-acetaminophen (NORCO) 7.5-325 MG per tablet, Take 1 Tab by mouth every 6 hours as needed for Pain., Disp: 120 Tab, Rfl: 0 ibuprofen (MOTRIN) 600 MG tablet, Take 600 mg by mouth every 6 hours as needed for Pain., Disp:, Rfl: metoprolol (TOPROL-XL) 25 MG XL tablet, TK 1 T PO D, Disp: , Rfl: Multiple Vitamins-Minerals (MULTIVITAMIN ADULT OR), Take by mouth., Disp: , Rfl: pantoprazole (PROTONIX) 40 MG tablet, Take 40 mg by mouth., Disp: , Rfl: quetiapine (SEROQUEL) 50 MG tablet, Take by mouth two times daily. 50 mg AM and 100 mg PM, Disp: , Rfl: Allergies Allergen Reactions Metoclopramide Other (See Comments) and Anaphylaxis Dystonic reaction Other reaction(s): Other ROS 13 systems is negative except symptoms in HPI, hx GERD. OBJECTIVE Vital Signs Height: 5' 7" (170.2 cm) Weight - Scale: 151 lb 0.2 oz (68.5 kg) Pulse: 86 BP: (!) 140/92 Patient Position: Sitting Cuff Size: regular BP Location: left arm EXAMINATION: GENERAL APPEARANCE: No acute distress SKIN & Intergumentary: Multiple excoriations, pt says, "I have parasitic infection in skin" HEENT: PERRLA, full EOM. NECK: Neck supple, w/o nodes or thyromegaly or bruits. CHEST: Clear to A&P CARDIAC: Normal S1, S2, no murmurs ABDOMEN: Normal bowel sounds, non-distended, non-tender SPINE AND BACK: cervical and lumbar paraspinal tenderness EXTREMITY: No significant finding except Heberden's nodes at fingers and flexion deformity of little finger. Pulses are normal : Deferred NEUROEXAMINATION: Mental Status: Oriented x4, coherent stream is a bit tangential, mood/affect congruent and consistent with being hypomanic. Speech is hoarse and praxis, intact. Cranial Nerves II to XII no deficits. Motor Exam noted for normal tone and bulk, strength is 5/5 and there are no involuntary movements. Sensory is noted for stocking and glove deficit of mild degree. Cerebellar is noted for normal finger to nose, JOCELIN. DTRs are intact. Gait and Stance: normal. LABS--Utox done 06/16/19 is consistent with medication profile. IMPRESSION & PLAN: 1) Re: CC #1--Polyarthritic pain Plan Need to confer with psych to optimize medications. 2) Re: CC #2--Neck/Back Pain--Spondylosis Plan Cautiously try Robaxin for back spasms. I will refrain from refilling Davis and contemplate the next step at a later date. 3) Re: CC #3--Anxiety (Cannot exclude a Bipolar d/o) Plan Defer to psych. I will refer for neuropsych testing. Pt likely needs a shift in Rx. Incidentally pt c/o having dysuria therefore US and C&S ordered. Spent 1 hr with pt as she remained tangential. Clinic staff left at which point I encourage pt to leave since we were left alone. Billy Ennis MD documented in this encounter Plan of Treatment Name Type Priority Associated Diagnoses Order S chedule CULTURE, Microbiology Routine Acute cystitis with Ordered: 09/01/2019 URINE/SENSITIVITY ON hematuria ALL URINALYSIS AUTO Lab Routine Acute cystitis with Order ed: 09/01/2019 W/SCOPE hematuria Name Type Priority Associated Order Schedule Diagnoses AMB REF TO Outpatient Referral Routine Attention deficit Ord ered: NEUROPSYCH [facility] 09/01/2019 Health Maintenance Due Date Last Done Comments COLON CANCER SCREENING: COLONOSCOPY 1960 MAMMOGRAM ANNUAL 1960 TETANUS SHOT (ADULT) 11/30/1974 BMI FOLLOW UP PLAN 11/30/1977 HIV SCREENING 11/30/1977 CERVICAL CANCER SCREENING 3 YEAR FOLLOW UP 11/30/1980 FLU VACCINE > 6 MONTHS 10/17/2019 HEPATITIS C SCREENING Completed 07/12/2006, 11/30/2003 documented as of this encounter Results Not on filedocumented in this encounter Visit Diagnoses Diagnosis Attention deficit - Primary Attention or concentration deficit Acute cystitis with hematuria Acute cystitis documented in this encounter Insurance Payer Benefit Plan / Subscriber ID Effective Phone Address T ype Group Dates [facility] xxxxxxxxx 2018-Prese [address] [address] Medicaid [place] [address] documented as of this encounter
--- OUTSIDE RECORDS SUMMARY | 2019-09-29 15:14 | XMS REPORT | Summary of Care ---
:1960 Author Organization [facility] Address [address] [place] [address] Care Team Providers Name Role Phone Rkia Troncoso MD Primary Care Provider Reason for Visit Reason Comments Results COVID Encounter Details Date Type Department Care Team Description 09/27/2019 Telephone [facility] Brenda Muñoz FNP Results (COVID ) Medicine - [address] [place] [address] [place], [place] [phone] Allergies Active Allergy Reactions Severity Noted Date Comments Metoclopramide Hcl Anaphylaxis 10/11/2016 documented as of this encounter (statuses as of 09/28/2019) Medications Medication Sig Dispensed Refills Start Date [...] tablet (six) hours as needed for Pain. [id number] Take 1 tablet by 0 Active affeine [...] as of this encounter (statuses as of 09/28/2019) Active Problems Problem Noted Date ADHD 06/01/2019 Arthritis 06/01/2019 Anxiety 06/01/2019 GERD (gastroesophageal reflux disease) 06/01/2019 Painful orthopaedic hardware 05/12/2019 Overview: Added automatically from request for joanna pearl [id number] documented as of this encounter (statuses as of 09/28/2019) Social History Tobacco Use Types Packs/Day Years [...] Office Visit Cardiology Janice Desai M D [address] [place] [address] [phone] Health Maintenance Due Date Last Done Comments [...] Effective Dates Phone Addre ss Type Group [facility] STAR xxxxxxxxx 2019-Present Medicaid COMM PLAN - PLUS MANAGED MEDICAID documented as of this encounter
[2019-09-29] MEDS ORDERED: AZITHROMYCIN 250 MG TAB ONE (15:22)
[2019-09-29] MEDS ORDERED: CEFTRIAXONE/SWI 1gm 1 GM/10 ML SYR ONE (15:22)
[2019-09-29] MEDS ORDERED: NA CHLORIDE 0.9% 1,000 ML ONE ×2 (15:23→15:24)
[2019-09-29] MEDS ORDERED: NA CHLORIDE 0.9% 0 ML ONE (15:23)
[2019-09-29] MEDS ORDERED: ACETAMINOPHEN 500 MG TAB ONE (15:40)
--- NOTE | 2019-09-29 16:11 | ER ---
Nurse's Notes [facility] Name: Lilian Quinteros Age: 58 yrs Sex: Female : 1960 Arrival Date: 09/29/2019 Time: 10:48 Bed 20 Private MD: Diagnosis: Pneumonia, unspecified organism Presentation: 09/28 10:49 Chief complaint: Patient states: shortness of breath, cough and intermittent fever x 1 ss week. HX of COPD. Coronavirus screen: Patient reports a cough. Patient reports shortness of breath or difficulty breathing. Patient reports a measured and/or subjective temperature greater than 100.4F. Pt in hallway. Will place in exam room on droplet precautions when available. Ebola Screen: Patient denies exposure to infectious person. Patient denies travel to an Ebola-affected area in the 21 days before illness onset. Initial Sepsis Screen: Does the patient meet any 2 criteria? HR > 90 bpm. Does the patient have a suspected source of infection? No. Patient's initial sepsis screen is negative. Risk Assessment: Do you want to hurt yourself or someone else? Patient reports no desire to harm self or others. Onset of symptoms was September 22, 2019. 10:49 Method Of Arrival: EMS: [facility] ss 10:49 Acuity: SUZANNE 3 ss 11:14 Care prior to arrival: Medication(s) given: Albuterol Neb x 1, Atrovent Neb x 1. ss Triage Assessment: 11:30 Respiratory: Reports cough that is dry. iw 11:30 Respiratory: the patient has mild shortness of breath. iw 12:00 General: Behavior is agitated, anxious. iw 09/29 10:00 General: Appears. iw Historical: - Allergies: 09/28 10:51 HYDROCODONE; ss 10:51 Reglan; ss - PMHx: 10:51 ADD/ADHD; Anxiety; cardiac arrythmia; COPD; Depression; Hypertension; Pancreatitis; ss psychogenic parasitosis; - PSHx: 10:51 finger; ss - Immunization history:: Adult Immunizations up to date. - Social history:: Smoking status: Patient/guardian denies using tobacco, Stopped _ months ago 1. Screenin:00 Fall Risk None identified. iw 13:21 Abuse screen: Denies threats or abuse. Denies injuries from another. Nutritional ss screening: No deficits noted. Tuberculosis screening: Never had TB. Assessment: 11:30 General: Appears uncomfortable, Behavior is agitated, anxious. Pain: Complains of pain iw in back of head and chest. Neuro: Level of Consciousness is awake, alert, obeys commands, Oriented to person, place, time, situation, Moves all extremities. Full function. Cardiovascular: Rhythm is regular. Respiratory: Airway is patent Respiratory effort is even, Breath sounds are diminished bilaterally. the patient has mild shortness of breath. GI: Abdomen is flat, non-distended. Derm: Skin has lesions on shaka legs Skin is normal. Musculoskeletal: Amputation of . 15:01 Reassessment: Patient appears in no apparent distress at this time. pt requesting pain iw medication, states she is having pain in her chest and back of head. Vital Signs: 10:49 BP 105 / 72; Pulse 74; Resp 20; Pulse Ox 95% on R/A; Weight 70.31 kg; Height 5 ft. 7 ss in. (170.18 cm); Pain 10/10; 11:15 Pulse Ox 89% on R/A; ss 11:15 Pulse Ox 95% on 2 lpm NC; ss 15:00 BP 135 / 79; Pulse 83; Resp 18 S; Temp 97.2; Pulse Ox 95% on 2 lpm NC; iw 10:49 Body Mass Index 24.28 (70.31 kg, 170.18 cm) ss 10:49 after NEB ED Course: 10:48 Patient arrived in ED. ss 10:51 Triage completed. ss 10:51 Arm band placed on right wrist. ss 10:59 Kalani Felder, RN is Primary Nurse. iw 11:01 Dorcas Vaughn FNP-C is [facility]. kb 11:01 Maldonado Farooq MD is Attending Physician. kb 11:30 Patient has correct armband on for positive identification. iw 11:48 Chest Single View XRAY In Process Unspecified. EDMS 12:00 Missed attempt(s): 22 gauge in right antecubital area. Bleeding controlled, band aid iw applied, catheter tip intact. 12:20 Missed attempt(s): 22 gauge in left antecubital area. Bleeding controlled, band aid iw applied, catheter tip intact. 13:21 Missed attempt(s): 20 gauge in right antecubital area. Bleeding controlled, band aid ss applied, catheter tip intact. 17:58 No provider procedures requiring assistance completed. IV discontinued, intact, iw bleeding controlled, No redness/swelling at site. Administered Medications: 14:59 Drug: Magnesium Sulfate 1 grams Route: IVPB; Infused Over: 1 hrs; Site: right femoral; iw 14:59 Drug: SOLU-Medrol 125 mg Route: IVP; Site: right femoral; iw 15:47 Drug: Rocephin 1 grams Route: IV; Rate: 1 calculated rate; Site: right femoral; iw 15:47 Drug: Zithromax 500 mg Route: PO; iw 15:47 Drug: NS 0.9% 1000 ml Route: IV; Rate: 1000 ml; Site: right femoral; iw Outcome: 16:10 Discharge ordered by . kb 17:58 Condition: good iw 17:58 Discharge instructions given to patient, Instructed on discharge instructions, follow up and referral plans. Demonstrated understanding of instructions, follow-up care. 17:59 Discharged to home ambulatory. iw 18:00 Patient left the ED. iw Signatures: Dispatcher [employer] Dorcas Chong, GERDA KNOX-Kalani Adames, RN RN iw Cora Abdul RN RN ss
--- NOTE | 2019-09-29 16:11 | EDPHYS ---
Physician Documentation [facility] Name: Lilian Quinteros Age: 58 yrs Sex: Female : 1960 Arrival Date: 09/29/2019 Time: 10:48 Bed 20 Private MD: ED Physician Maldonado Farooq HPI: 09/28 16:02 This 58 yrs old Female presents to ER via EMS with complaints of Shortness Of kb Breath, Fever. 16:02 The patient has not experienced similar symptoms in the past. The patient has not kb recently seen a physician. 16:08 The patient or guardian reports cough, that is intermittent, described as mild, with no kb sputum, difficulty breathing, flu symptoms, myalgias. Onset: The symptoms/episode began/occurred 1 week(s) ago. Severity of symptoms: At their worst the symptoms were moderate, in the emergency department the symptoms are unchanged. Modifying factors: The symptoms are alleviated by nothing, the symptoms are aggravated by nothing. Associated signs and symptoms: Pertinent positives: fever, Pertinent negatives: chest pain, diarrhea, ear ache, nausea, rhinorrhea, sore throat, vomiting. Historical: - Allergies: 10:51 HYDROCODONE; ss 10:51 Reglan; ss - PMHx: 10:51 ADD/ADHD; Anxiety; cardiac arrythmia; COPD; Depression; Hypertension; Pancreatitis; ss psychogenic parasitosis; - PSHx: 10:51 finger; ss - Immunization history:: Adult Immunizations up to date. - Social history:: Smoking status: Patient/guardian denies using tobacco, Stopped _ months ago 1. ROS: 16:06 ENT: Negative for injury, pain, and discharge, Neck: Negative for injury, pain, and kb swelling, Cardiovascular: Negative for chest pain, palpitations, and edema, Abdomen/GI: Negative for abdominal pain, nausea, vomiting, diarrhea, and constipation, Back: Negative for injury and pain, MS/Extremity: Negative for injury and deformity, Skin: Negative for injury, rash, and discoloration, Neuro: Negative for headache, weakness, numbness, tingling, and seizure. 16:06 Constitutional: Positive for body aches, chills, fatigue, fever, malaise, Negative for poor PO intake, weight loss. 16:06 Respiratory: Positive for cough, shortness of breath, Negative for dyspnea on exertion, hemoptysis, orthopnea, pleurisy, sputum production, wheezing. Exam: 16:06 Constitutional: This is a well developed, well nourished patient who is awake, alert, kb and in no acute distress. Head/Face: Normocephalic, atraumatic. Neck: Trachea midline, no thyromegaly or masses palpated, and no cervical lymphadenopathy. Supple, full range of motion without nuchal rigidity, or vertebral point tenderness. No Meningismus. Chest/axilla: Normal chest wall appearance and motion. Nontender with no deformity. No lesions are appreciated. Cardiovascular: Regular rate and rhythm with a normal S1 and S2. No gallops, murmurs, or rubs. Normal PMI, no JVD. No pulse deficits. Abdomen/GI: Soft, non-tender, with normal bowel sounds. No distension or tympany. No guarding or rebound. No evidence of tenderness throughout. Skin: Warm, dry with normal turgor. Normal color with no rashes, no lesions, and no evidence of cellulitis. MS/ Extremity: Pulses equal, no cyanosis. Neurovascular intact. Full, normal range of motion. Neuro: Awake and alert, GCS 15, oriented to person, place, time, and situation. Cranial nerves II-XII grossly intact. Motor strength 5/5 in all extremities. Sensory grossly intact. Cerebellar exam normal. Normal gait. 16:06 Respiratory: the patient does not display signs of respiratory distress, Respirations: normal, Breath sounds: wheezing: expiratory that is mild, is scattered. Vital Signs: 10:49 BP 105 / 72; Pulse 74; Resp 20; Pulse Ox 95% on R/A; Weight 70.31 kg; Height 5 ft. 7 ss in. (170.18 cm); Pain 10/10; 11:15 Pulse Ox 89% on R/A; ss 11:15 Pulse Ox 95% on 2 lpm NC; ss 15:00 BP 135 / 79; Pulse 83; Resp 18 S; Temp 97.2; Pulse Ox 95% on 2 lpm NC; iw 10:49 Body Mass Index 24.28 (70.31 kg, 170.18 cm) ss 10:49 after NEB ss Procedures: 14:43 Central Line: the site was prepped with Betadine, in sterile fashion, a triple lumen marc catheter was inserted, in the right femoral vein, in 2 attempts. placement was verified, by blood return, the site was dressed with using sterile technique, the patient tolerated the procedure, well. MDM: 11:01 Patient medically screened. kb 15:58 Data reviewed: vital signs, nurses notes. Data interpreted: Pulse oximetry: on room air kb is 96 %. Interpretation: normal. Counseling: I had a detailed discussion with the patient and/or guardian regarding: the historical points, exam findings, and any diagnostic results supporting the discharge/admit diagnosis, lab results, radiology results, the need for outpatient follow up, a family practitioner, to return to the emergency department if symptoms worsen or persist or if there are any questions or concerns that arise at home. ED course: Pt appears to be feeling better. Pt is sitting up, in no distress. COVID test done at [place] 3 days ago, results pending. Resp even and unlabored. CURB-65 score is 0 points, will treat pneumonia with outpatient antibiotics. . 09/28 11:10 Order name: CBC with Diff; Complete Time: 12:03 kb 09/28 11:10 Order name: Basic Metabolic Panel; Complete Time: 12:16 kb 09/28 11:01 Order name: Chest Single View XRAY; Complete Time: 12:16 kb 09/28 12:42 Order name: Blood Culture Adult (2) kb 09/28 12:42 Order name: Lactate; Complete Time: 14:56 kb 09/28 12:42 Order name: Procalcitonin; Complete Time: 15:19 kb 09/28 11:10 Order name: IV Start; Complete Time: 14:59 kb 09/28 13:39 Order name: Central Line Kit; Complete Time: 15:47 marc Administered Medications: 14:59 Drug: Magnesium Sulfate 1 grams Route: IVPB; Infused Over: 1 hrs; Site: right femoral; iw 14:59 Drug: SOLU-Medrol 125 mg Route: IVP; Site: right femoral; iw 15:47 Drug: Rocephin 1 grams Route: IV; Rate: 1 calculated rate; Site: right femoral; iw 15:47 Drug: Zithromax 500 mg Route: PO; iw 15:47 Drug: NS 0.9% 1000 ml Route: IV; Rate: 1000 ml; Site: right femoral; iw Disposition: 20:37 Co-signature as Attending Physician, Maldonado Farooq MD I agree with the assessment and marc plan of care. Disposition: 09/29/19 16:10 Discharged to Home. Impression: Pneumonia, unspecified organism. - Condition is Stable. - Discharge Instructions: Community-Acquired Pneumonia, Adult, [id number]. - Prescriptions for Prednisone 20 mg Oral Tablet - take 1 tablet by ORAL route once daily for 5 days; 5 tablet. Albuterol Sulfate 90 mcg/actuation - inhale 1-2 puff by INHALATION route every 4-6 hours; 1 Inhaler. Zithromax 500 mg Oral Tablet - take 1 tablet by ORAL route once daily for 5 days; 5 tablet. - Medication Reconciliation Form, Thank You Letter, Antibiotic Education, Prescription Opioid Use form. - Follow up: Emergency Department; When: As needed; Reason: Worsening of condition. Follow up: Private Physician; When: 2 - 3 days; Reason: Recheck today's complaints, Continuance of care, Re-evaluation by your physician. Signatures: Dispatcher [employer] EDWI Dorcas Vaughn, RADIATION THERAPY TECHNICIAN-C RADIATION THERAPY TECHNICIAN-Maldonado Zhou MD MD cha Williams, Irene, JAE RN iw Cora Abdul RN RN ss Corrections: (The following items were deleted from the chart) 18:00 16:10 09/29/2019 16:10 Discharged to Home. Impression: Pneumonia, unspecified organism. iw Condition is Stable. Forms are Medication Reconciliation Form, Thank You Letter, Antibiotic Education, Prescription Opioid Use. Follow up: Emergency Department; When: As needed; Reason: Worsening of condition. Follow up: Private Physician; When: 2 - 3 days; Reason: Recheck today's complaints, Continuance of care, Re-evaluation by your physician. kb
[2019-09-29] MEDS ORDERED: dexAMETHasone 10 MG/ML VIAL ONE (17:07)
[2019-09-29 18:04] VITALS: O2SAT 95
[2019-09-29 18:07] VITALS: BP 135/79; TEMP 97.2
== END 2019-09-29 18:00 | disposition home or self-care (01) ==
LOC: ER 10:47
PROC: 06HT33Z Insertion of Infusion Device into Right Foot Vein, Percutaneous Approach (ICD-10-PCS; principal; 2019-09-29)
DX: J18.9 Pneumonia, unspecified organism (principal); I10 Essential (primary) hypertension; Z88.5 Allergy status to narcotic agent
CPT/HCPCS: 87040 ×2; 85025; 80048; 36415; 83605; 84145; 71045; 96375; 96374; 99283; 36556; J3475; J1100; J0696; J7030 ×2; J2930

== ENCOUNTER 2024-06-26 11:44 | Inpatient (IN) | payer MEDICAID, OTHER ==
[2024-06-26] MEDS ORDERED: METHYLPREDNISOLONE 125 MG INJ ONE (12:31)
[2024-06-26] MEDS ORDERED: ASPIRIN 81 MG CHEWABLE TABLET ONE (12:31)
[2024-06-26] MEDS ORDERED: ALBUTEROL INHALER 200 PUFF/6.7 GM IH ONE (12:32)
[2024-06-26] MEDS ORDERED: ALBUTEROL 2.5 MG/3 ML NEB SOL ONE ×2 (12:33→18:18)
[2024-06-26] MEDS ORDERED: IPRATROPIUM BROM 0.5MG/2.5ML ONE ×2 (12:33→18:18)
[2024-06-26 12:57] LABS: Absolute Basophils 0.1 K/uL (0-0.5); Absolute Eosinophils 0.2 K/uL (0-0.5); Absolute Neutrophil 13.5 K/uL (1.8-8.0); Basophils % 0.5 % (0-1.3); Eosinophils % 1.2 % (0-4.4); Hematocrit 37.8 % (36.0-45.0); Hemoglobin 12.8 g/dL (12.0-15.0); Lymphocytes % 11.9 % (15.3-44.8); MCH 30.2 pg (27.0-35.0); MCHC 33.9 g/dL (32.0-36.0); MCV 89.1 fL (80-100); MPV 8.1 fL (7.6-11.3); Monocytes % 6.2 % (3.3-12.3); Neutrophils % 80.2 % (41.7-73.7); Platelets 270 thou/uL (152-406); RBC Red Blood Cell Count 4.24 M/uL (3.86-4.86); Red Cell Distribution Width 14.3 % (12.1-15.2)
[2024-06-26 13:01] LABS: D-Dimer 3.198 FEUug/mL (0-0.500); PT Prothrombin Time 16.2 SECONDS (10-13.0); Protime INR 1.45
[2024-06-26 13:19] LABS: Albumin 2.4 g/dL (3.4-5.0); Albumin/Globulin Ratio 0.5 (1.1-1.8); Anion Gap 14.9 mEq/L (5.0-15.0); Bilirubin Direct 0.3 mg/dL (0-0.2); Bilirubin Indirect, Calculated 0.4 mg/dL (0.2-0.8); Bilirubin Total 0.7 mg/dL (0.2-1.0); Globulin 4.6 g/dL (2.3-3.5); Magnesium 2.4 mg/dL (1.6-2.4); Potassium 3.9 mEq/L (3.5-5.1); Troponin High Sensitivity 19.9 pg/mL (<58.9)
--- NOTE | 2024-06-26 13:25 | RAD REPORT ---
EXAMINATION: ONE VIEW CHEST XR CLINICAL INDICATION: CHEST PAIN TECHNIQUE: Frontal chest projection is submitted. Examination is limited by patient positioning and t echnique. COMPARISON: 09/29/2019 FINDINGS: There is extensive bilateral pulmonary opacities, slightly greater on the right, likely representing pneumonia or pulmonary edema. The heart is upper limit of normal in size. No displaced fractures identified.
[2024-06-26] MEDS ORDERED: CEFTRIAXONE 2000 MG/VIAL ONE (14:11)
[2024-06-26] MEDS ORDERED: AZITHROMYCIN 500 MG INJ IVPB ONE (14:11)
[2024-06-26] MEDS ORDERED: NA CHLORIDE 0.9% 250 ML ONE (14:12)
[2024-06-26] MEDS ORDERED: NA CHLORIDE 0.9% 1,000 ML ONE (14:12)
--- NOTE | 2024-06-26 14:17 | RAD REPORT ---
EXAMINATION: CTA CHEST PE CLINICAL INDICATION: +d-dimer, dyspne TECHNIQUE: This examination was performed according to an angiographic protocol with 3D post-processi ng. This involves 3D reconstructions, MIPs, volume rendered images and/or shaded surface rendering. One or more of the following dose reduction techniques were used: Automated exposure control, adjustm ent of the mA and/or kV according to patient size, and/or iterative reconstruction. Unless otherwise specified, incidental findings do not require dedicated imaging follow-up. COMPARISON: No prior exam. FINDINGS: PULMONARY ARTERIES: Normal caliber. No evidence of pulmonary emboli to the subsegmental level. THORACIC AORTA: Normal caliber and configuration. LUNGS: Extensive airspace consolidation bilaterally, greater on the right or asymmetric pulmonary tu ma. PLEURA: Trace bilateral pleural effusions, slightly greater on the right. MEDIASTINUM AND LYMPH NODES: Mildly prominent lymph nodes are seen in both meghan and in the mediastinu m, slightly greater on the right. OSSEOUS STRUCTURES AND CHEST WALL: Old right posterior rib fractures. UPPER ABDOMEN: No significant abnormalities. IMPRESSION: No evidence of pulmonary emboli to the subsegmental level. Extensive bilateral lung consolidation, greater on the right likely representing pneumonia, less like ly asymmetric pulmonary edema. Trace bilateral pleural fluid.
--- NOTE | 2024-06-26 14:50 | EDPHYS ---
Physician Documentation [facility] Name: Lilian Quinteros Age: 63 yrs Sex: Female : 1960 Arrival Date: 06/26/2024 Time: 11:44 Bed 14 Private MD: ED Physician Hiram Barron HPI: 06/26 11:58 Chief Complaint: Shortness of breath and feeling worse since being diagnosed with jr11 pneumonia. History of Present Illness: The patient was diagnosed with pneumonia at [facility] on June 20, six days ago. She was discharged with a prescription for amoxicillin, doxycycline, naproxen, an albuterol inhaler, and benzonatate for cough. She reports taking her medications as prescribed. Today, she experienced worsening symptoms, including difficulty walking to the bathroom due to shortness of breath and felt she needed to call EMS. Her oxygen saturation at home on room air was about 90%. Post-treatment with two DuoNebs, her oxygen saturation improved to 100%. She reports a history of COPD and smoking, which she quit some time ago. She also noted experiencing fevers and pain rated at 5 out of 10 when taking deep breaths. ROS otherwise negative. Review of Systems: - Positive for shortness of breath, fevers, and pain with deep breaths. - Negative for other symptoms not mentioned. . Historical: - Allergies: 11:52 HYDROCODONE; kc6 11:52 Reglan; kc6 - PMHx: 11:52 ADD/ADHD; Anxiety; cardiac arrythmia; COPD; Depression; Hypertension; Pancreatitis; kc6 psychogenic parasitosis; - PSHx: 11:52 None; kc6 - Immunization history:: Adult Immunizations up to date. - Infectious Disease History:: Denies. - Social history:: Smoking status: Patient/guardian denies using tobacco, but has a distant history of tobacco abuse. Exam: 11:58 Constitutional: mild resp distress Eyes: Extra-ocular motions intact. Lids and jr11 lashes normal. Conjunctiva and sclera are non-icteric and not injected. Cornea within normal limits. Periorbital areas with no swelling, redness, or edema. ENT: Nares patent. No nasal discharge, no septal abnormalities noted. Oropharynx with no redness, swelling, or masses, exudates, or evidence of obstruction, uvula midline. Mucous membranes moist. Neck: Trachea midline, no thyromegaly or masses palpated, and no cervical lymphadenopathy. Supple, full range of motion without nuchal rigidity, or vertebral point tenderness. No Meningismus. Respiratory: diffusely wheezing, Rales RLL MS/ Extremity: Pulses equal, no cyanosis. Neurovascular intact. Full, normal range of motion. Neuro: Awake and alert, GCS 15, oriented to person, place, time, and situation. No gross motor or sensory deficits. Vital Signs: 11:49 BP 103 / 64; Pulse 85; Resp 18 S; Pulse Ox 88% on R/A; Weight 77.11 kg (R); Height 5 kc6 ft. 7 in. (R); Pain 5/10; 12:45 BP 99 / 72; Pulse 95; Resp 18 S; Pulse Ox 100% on Nebulizer Mask; kc6 13:42 BP 97 / 66; Pulse 96; Resp 19 S; Pulse Ox 92% on 3 lpm NC; kc6 14:39 BP 102 / 74; Pulse 94; Resp 29 S; Pulse Ox 95% on 3 lpm NC; kc6 11:49 Body Mass Index 26.63 (77.11 kg, 170.18 cm) kc6 11:49 Pain Scale: Adult kc6 MDM: 11:48 Medical Screening Exam initiated jr11 11:58 Differential diagnosis: Medical Decision Makin. Pneumonia exacerbation 2. COPD jr11 exacerbation 3. Pulmonary embolism (less likely but considered due to severity of symptoms) 4. Heart failure (less likely but life-threatening and needs to be ruled out) Plan: - Monitor oxygen saturation levels on room air. - Consider initiation of steroids such as prednisone or methylprednisolone. - Perform lab work to further investigate symptoms. - Continue current medications including antibiotics and inhalers. - Provide supportive care and reassess pain management. 12:17 Data reviewed: EKG, EKG interpreted by me shows*normal sinus rhythm, normal axis, jr11 normal intervals, no acute ST changes. QTc slightly prolonged 497.. 14:49 ED course: CTA with concern for ultilobar PNA, will admit Dr Adair. 11 06/26 11:49 Order name: Basic Metabolic Panel; Complete Time: 13:44 [facility] 06/26 11:49 Order name: CBC with Diff; Complete Time: 13:44 [facility] 06/26 11:49 Order name: D-Dimer; Complete Time: 13:44 [facility] 06/26 11:49 Order name: LFT's; Complete Time: 13:44 [facility] 06/26 11:49 Order name: Magnesium; Complete Time: 13:44 [facility] 06/26 11:49 Order name: NT PRO-BNP; Complete Time: 13:44 [facility] 06/26 11:49 Order name: PT-INR; Complete Time: 13:44 [facility] 06/26 11:49 Order name: Troponin HS; Complete Time: 13:44 [facility] 06/26 11:49 Order name: Blood Culture Adult (2) [facility] 06/26 11:49 Order name: Lactate w/ 2H reflex if indic.; Complete Time: 13:44 [facility] 06/26 13:17 Order name: Ghost Lactate-NO COLLECT Timer; Complete Time: 15:15 [facility] 06/26 14:59 Order name: Lactate w/ 2H reflex if indic.; Complete Time: 15:55 [facility] 06/26 15:25 Order name: Urinalysis w/ reflexes [facility] 06/26 15:25 Order name: CBC with Automated Diff [facility] 06/26 15:25 Order name: CBC with Automated Diff [facility] 06/26 15:25 Order name: Comprehensive Metabolic Panel [facility] 06/26 15:25 Order name: Comprehensive Metabolic Panel [facility] 06/26 15:25 Order name: Sputum Culture [facility] 06/26 11:49 Order name: XRAY Chest (1 view); Complete Time: 13:44 [facility] 06/26 13:46 Order name: CT Chest For PE Angio; Complete Time: 14:23 [facility] 06/26 15:25 Order name: CONS Physician Consult [facility] 06/26 11:49 Order name: Cardiac monitoring; Complete Time: 12:08 [facility] 06/26 11:49 Order name: EKG - Nurse/Tech; Complete Time: 12:08 [facility] 06/26 11:49 Order name: IV Saline Lock; Complete Time: 12:44 [facility] 06/26 11:49 Order name: Labs collected and sent; Complete Time: 12:44 [facility] 06/26 11:49 Order name: O2 Per Protocol; Complete Time: 11:53 [facility] 06/26 11:49 Order name: O2 Sat Monitoring; Complete Time: 11:53 [facility] Administered Medications: 12:44 Drug: Aspirin PO Chewable Tablet 324 mg PO once; 81 mg tablets x 4 Route: PO; kc6 14:07 Follow up: Response: No adverse reaction kc6 12:44 Not Given (Physician Discretion): Albuterol-Ipratropium Inhaler 100 mcg-20 kc6 mcg/actuation 1 puffs Inhalation once 12:44 Drug: Albuterol Inhalation 2.5 mg Inhalation once Route: Inhalation; kc6 14:07 Follow up: Response: No adverse reaction kc6 12:44 Drug: Ipratropium Inhalation Aerosol 0.5 mg Inhalation once Route: Inhalation; kc6 14:07 Follow up: Response: No adverse reaction kc6 12:45 Drug: MethylPrednisoLONE IVP 125 mg IVP once Route: IVP; Site: right wrist; kc6 14:07 Follow up: Response: No adverse reaction kc6 14:31 Drug: Rocephin IV 2 grams IV at calculated rate once; Given slow IV push per pharmarcy kc6 instructions Route: IV; Rate: calculated rate; Site: right wrist; 15:32 Follow up: Response: No adverse reaction; IV Status: Completed infusion; IV Intake: [id number] 14:31 Drug: AZITHromycin IVPB 500 mg IVPB once over 1 hrs; (mix in 250 mL NS) Route: IVPB; kc6 Infused Over: 1 hrs; Site: right wrist; 15:32 Follow up: Response: No adverse reaction; IV Status: Completed infusion; IV Intake: kc6 250ml 14:31 Drug: NS 0.9% IV 1000 ml IV at 1000 ml once; to be given as a bolus over 60 minutes kc6 Route: IV; Rate: 1000 ml; Site: right wrist; 15:31 Follow up: Response: No adverse reaction; IV Status: Completed infusion; IV Intake: kc6 1000ml Disposition Summary: 06/26/24 14:50 Hospitalization Ordered Notes: Hospitalization Status: Inpatient Admission jr11 Provider: Alexis Adair jr Location: Telemetry/MedSurg (Inpatient) [facility] Condition: Fair jr11 Problem: new jr11 Symptoms: are unchanged jr11 Bed/Room Type: Standard [facility] Room Assignment: 414(06/26/24 19:51) kmf Diagnosis - Multilobar pneumonia, hypoxia jr11 Forms: - Medication Reconciliation Form jr11 - SBAR form jr11 - Leadership Thank You Letter jr11 Signatures: Dispatcher [employer] EDMS Hiram Barron MD MD jr11 Ana Jacinto RN RN kc6 Paige Aguilera kmf Corrections: (The following items were deleted from the chart) 11:50 11:50 BASIC METABOLIC PANEL+C.LAB.BRZ ordered. EDMS EDMS 11:50 11:50 CBC+H.LAB.BRZ ordered. EDMS EDMS 11:50 11:50 D-DIMER+COAG.LAB.BRZ ordered. EDMS EDMS 11:50 11:50 HEPATIC FUNCTION+C.LAB.BRZ ordered. EDMS EDMS 11:50 11:50 MAGNESIUM+C.LAB.BRZ ordered. EDMS EDMS 11:50 11:50 PROBNP+C.LAB.BRZ ordered. EDMS EDMS 11:50 11:50 PROTIME (+INR)+COAG.LAB.BRZ ordered. EDMS EDMS 11:50 11:50 Troponin High Sensitivity+C.LAB.BRZ ordered. EDMS EDMS 11:50 11:50 BLOOD CULTURE*+BA.LAB.BRZ ordered. EDMS EDMS 11:50 11:50 LACTATE+C.LAB.BRZ ordered. EDMS EDMS 11:50 11:50 Chest Single View+RAD.RAD.BRZ ordered. EDMS EDMS 19:51 14:50 jr11 kmf
--- NOTE | 2024-06-26 14:50 | ER ---
Nurse's Notes [facility] Name: Lilian Quinteros Age: 63 yrs Sex: Female : 1960 Arrival Date: 06/26/2024 Time: 11:44 Bed 14 Private MD: Diagnosis: Multilobar pneumonia, hypoxia Presentation: 06/26 11:49 Chief complaint: EMS states: she was seen at [facility] 6 days ago and diagnosed kc6 with pneumonia. pt reports increased SOB today and states, "I felt like I was going to .". Coronavirus screen: At this time, the client does not indicate any symptoms associated with coronavirus-19. Ebola Screen: No symptoms or risks identified at this time. Initial Sepsis Screen: Does the patient meet any 2 criteria? No. Patient's initial sepsis screen is negative. Does the patient have a suspected source of infection? No. Patient's initial sepsis screen is negative. Risk Assessment: Do you want to hurt yourself or someone else? Patient reports no desire to harm self or others. Onset of symptoms was June 26, 2024. Care prior to arrival: Glucose check: 113 Med neb given. Oxygen administered. via a nebulizer mask. 11:49 Method Of Arrival: EMS: [facility] 11:49 Acuity: SUZANNE 3 kc6 Historical: - Allergies: 11:52 HYDROCODONE; kc6 11:52 Reglan; kc6 - PMHx: 11:52 ADD/ADHD; Anxiety; cardiac arrythmia; COPD; Depression; Hypertension; Pancreatitis; kc6 psychogenic parasitosis; - PSHx: 11:52 None; kc6 - Immunization history:: Adult Immunizations up to date. - Infectious Disease History:: Denies. - Social history:: Smoking status: Patient/guardian denies using tobacco, but has a distant history of tobacco abuse. Screenin:[facility] ED Fall Risk Assessment (Adult) History of falling in the last 3 months, kc6 including since admission No falls in past 3 months (0 pts) Confusion or Disorientation No (0 pts) Intoxicated or Sedated No (0 pts) Impaired Gait No (0 pts) Mobility Assist Device Used No (0 pt) Altered Elimination No (0 pt) Score/Fall Risk Level 0 - 2 = Low Risk Oriented to surroundings, Maintained a safe environment. Abuse screen: Denies threats or abuse. Denies injuries from another. Nutritional screening: No deficits noted. Tuberculosis screening: No symptoms or risk factors identified. Assessment: 11:45 General: Appears in no apparent distress. uncomfortable, well groomed, well developed, kc6 Behavior is calm, cooperative, appropriate for age. Pain: Complains of pain in chest. Neuro: Level of Consciousness is awake, alert, obeys commands, Oriented to person, place, time, situation, Appropriate for age. Cardiovascular: Reports chest pain, shortness of breath, Heart tones S1 S2 present Capillary refill < 3 seconds Rhythm is regular. Respiratory: Reports shortness of breath on exertion cough that is productive, pain with respiration Airway is patent Trachea midline Respiratory effort is even, unlabored, Respiratory pattern is regular, symmetrical, Breath sounds with rales bilaterally. GI: No signs and/or symptoms were reported involving the gastrointestinal system. : No signs and/or symptoms were reported regarding the genitourinary system. EENT: No signs and/or symptoms were reported regarding the EENT system. Derm: No signs and/or symptoms reported regarding the dermatologic system. Skin is intact, is healthy with good turgor, Skin is pale. Musculoskeletal: No signs and/or symptoms reported regarding the musculoskeletal system. Circulation, motion, and sensation intact. Range of motion: intact in all extremities. 12:45 Reassessment: Patient appears in no apparent distress at this time. No changes from kc6 previously documented assessment. Patient and/or family updated on plan of care and expected duration. Pain level reassessed. Patient is alert, oriented x 3, equal unlabored respirations, skin warm/dry/pink. 13:45 Reassessment: Patient appears in no apparent distress at this time. No changes from kc6 previously documented assessment. Patient and/or family updated on plan of care and expected duration. Pain level reassessed. Patient is alert, oriented x 3, equal unlabored respirations, skin warm/dry/pink. 14:38 Reassessment: Patient appears in no apparent distress at this time. No changes from kc6 previously documented assessment. Patient and/or family updated on plan of care and expected duration. Pain level reassessed. Patient is alert, oriented x 3, equal unlabored respirations, skin warm/dry/pink. 15:32 Reassessment: Patient appears in no apparent distress at this time. No changes from kc6 previously documented assessment. Patient and/or family updated on plan of care and expected duration. Pain level reassessed. Patient is alert, oriented x 3, equal unlabored respirations, skin warm/dry/pink. Vital Signs: 11:49 BP 103 / 64; Pulse 85; Resp 18 S; Pulse Ox 88% on R/A; Weight 77.11 kg (R); Height 5 kc6 ft. 7 in. (R); Pain 5/10; 12:45 BP 99 / 72; Pulse 95; Resp 18 S; Pulse Ox 100% on Nebulizer Mask; kc6 13:42 BP 97 / 66; Pulse 96; Resp 19 S; Pulse Ox 92% on 3 lpm NC; kc6 14:39 BP 102 / 74; Pulse 94; Resp 29 S; Pulse Ox 95% on 3 lpm NC; kc6 11:49 Body Mass Index 26.63 (77.11 kg, 170.18 cm) kc6 11:49 Pain Scale: Adult [facility] ED Course: 11:48 Patient arrived in ED. jr11 11:48 Hiram Barron MD is Attending Physician. jr11 11:49 Ana Jacinto, JAE is Primary Nurse. kc6 11:52 Triage completed. kc6 11:52 Arm band placed on. kc6 11:52 Patient has correct armband on for positive identification. Bed in low position. Call [facility] light in reach. Side rails up X2. Pulse ox on. NIBP on. Door closed. Noise minimized. Lights dimmed. Pillow given. Verbal reassurance given. 11:52 Oxygen administration via nasal cannula \\T\\ 3L/min. kc6 12:30 First set of blood cultures drawn by me. aa5 12:32 Missed attempt(s): 22 gauge in left antecubital area. Bleeding controlled, band aid aa5 applied, catheter tip intact. 12:42 Initial lab(s) drawn, by me, sent to lab. aa5 12:42 Second set of blood cultures drawn by me. aa5 12:45 Inserted saline lock: 22 gauge in right wrist, using aseptic technique. Flushed with 10 aa5 mL NS. 13:15 XRAY Chest (1 view) In Process Unspecified. EDMS 14:14 CT Chest For PE Angio In Process Unspecified. EDMS 14:49 Alexis Adair MD is Hospitalizing Provider. jr11 15:32 Assisted to bathroom. kc6 15:32 No provider procedures requiring assistance completed. Patient admitted, IV remains in kc6 place. Administered Medications: 12:44 Drug: Aspirin PO Chewable Tablet 324 mg PO once; 81 mg tablets x 4 Route: PO; kc6 14:07 Follow up: Response: No adverse reaction kc6 12:44 Not Given (Physician Discretion): Albuterol-Ipratropium Inhaler 100 mcg-20 kc6 mcg/actuation 1 puffs Inhalation once 12:44 Drug: Albuterol Inhalation 2.5 mg Inhalation once Route: Inhalation; kc6 14:07 Follow up: Response: No adverse reaction kc6 12:44 Drug: Ipratropium Inhalation Aerosol 0.5 mg Inhalation once Route: Inhalation; kc6 14:07 Follow up: Response: No adverse reaction kc6 12:45 Drug: MethylPrednisoLONE IVP 125 mg IVP once Route: IVP; Site: right wrist; kc6 14:07 Follow up: Response: No adverse reaction kc6 14:31 Drug: Rocephin IV 2 grams IV at calculated rate once; Given slow IV push per pharmarcy kc6 instructions Route: IV; Rate: calculated rate; Site: right wrist; 15:32 Follow up: Response: No adverse reaction; IV Status: Completed infusion; IV Intake: [id number] 14:31 Drug: AZITHromycin IVPB 500 mg IVPB once over 1 hrs; (mix in 250 mL NS) Route: IVPB; kc6 Infused Over: 1 hrs; Site: right wrist; 15:32 Follow up: Response: No adverse reaction; IV Status: Completed infusion; IV Intake: kc6 250ml 14:31 Drug: NS 0.9% IV 1000 ml IV at 1000 ml once; to be given as a bolus over 60 minutes kc6 Route: IV; Rate: 1000 ml; Site: right wrist; 15:31 Follow up: Response: No adverse reaction; IV Status: Completed infusion; IV Intake: kc6 1000ml Medication: 15:42 VIS not applicable for this client. kc6 Intake: 15:31 IV: 1000ml; Total: 1000ml. kc6 15:32 IV: 10ml; Total: 1010ml. kc6 15:32 IV: 250ml; Total: 1260ml. kc6 Outcome: 14:50 Decision to Hospitalize by Provider. jr11 15:42 Admitted to ER Hold. Please see [facility] for further documentation. kc6 15:42 Condition: stable 15:42 Instructed on the need for admit, 20:52 Patient left the ED. ty Signatures: Dispatcher [employer] Omaira Benito, RN RN aa5 Hiram Barron MD MD jr11 Ana Jacinto RN RN kc6 Ronal Clarke ty
[2024-06-26] MEDS ORDERED: ONDANSETRON 4 MG/2 ML VIAL IV PRN (15:17)
[2024-06-26] MEDS: FUROSEMIDE 20 MG/ 2ML VIAL IV ONE (15:22)
--- NOTE | 2024-06-26 15:24 | P.HP ---
Patient History Date of Service: 06/26/24 Reason for admission: Shortness of breath History of Present Illness: 63-year-old female with a past medical history of COPD, hypertension, ADHD, depression presenting with shortness of breath for the last week. She was seen on June 20 at an outside emergency room. She was diagnosed with pneumonia at the time and discharged on antibiotics as well as pain relievers and an inhaler. She is now presenting with worsening symptoms and increasing shortness of breath. She states she was getting ready to move out of her apartment and all the dust and debris worsened her breathing. She was unable to work anymore. She denies fevers and chills. Associated symptoms include chest pain. She rates this as a 10 out of 10. Allergies metoclopramide [From Reglan] Allergy (Unverified 11/17/15 14:00) Unknown Review of Systems General: Weakness Eyes: Unremarkable ENT: Unremarkable Respiratory: Cough, Shortness of Breath Cardiovascular: Chest Pain Gastrointestinal: Unremarkable Genitourinary: Unremarkable Musculoskeletal: Unremarkable Integumentary: Unremarkable Neurological: Unremarkable Lymphatics: Unremarkable Physical Examination - Physical Exam General: Alert, In no apparent distress HEENT: Normocephalic Neck: Supple Respiratory: Diminished Cardiovascular: No edema Gastrointestinal: Normal bowel sounds Musculoskeletal: No clubbing Integumentary: No rashes Neurological: Normal gait, Normal speech Lymphatics: No axilla or inguinal lymphadenopathy - Studies Laboratory Data (last 24 hrs) 06/26/24 06/26/24 06/26/24 12:42 12:42 12:42 WBC 16.80 H Hgb 12.8 Hct 37.8 Plt Count 270 PT 16.2 H INR 1.45 Sodium 140 Potassium 3.9 BUN 17 Creatinine 0.90 Glucose 98 Magnesium 2.4 Total Bilirubin 0.7 AST 19 ALT 30 Alkaline Phosphatase 127 H Assessment and Plan - Plan Acute respiratory failure Multifocal pneumonia COPD exacerbation Leukocytosis Elevated BNP Hypertension Depression ADHD Imaging findings reviewed Continue scheduled breathing treatments, steroids, start cefepime and azithromycin Wean O2 as tolerated Dosed with Lasix in the ED, continue tomorrow Blood and sputum cultures pending CBC and CMP in the a.m. DVT prophylaxis with Lovenox - Advance Directives Does patient have a Living Will: No Does patient have a Durable POA for Healthcare: No
[2024-06-26] MEDS: CEFEPIME 2 GM in NA CHLORIDE 0.9% 100 ML IV SCH (16:00)
[2024-06-26] MEDS: ENOXAPARIN 40 MG/0.4 ML SQ SCH (16:00)
[2024-06-26] MEDS ORDERED: FUROSEMIDE 20 MG/ 2ML VIAL ONE (16:58)
[2024-06-26] MEDS ORDERED: ENOXAPARIN 40 MG/0.4 ML SQ ONE (16:58)
[2024-06-26] MEDS ORDERED: NA CHLORIDE 0.9% 100 ML ONE (16:58)
[2024-06-26] MEDS ORDERED: CEFEPIME 2 GM VIAL ONE (16:58)
[2024-06-26] MEDS: PANTOPRAZOLE 40MG TABLET PO SCH (23:13)
[2024-06-26] MEDS: QUETIAPINE 100MG TAB PO SCH (23:14)
[2024-06-27] MEDS: METHYLPREDNISOLONE 40 MG INJ IV SCH (00:39)
[2024-06-27] MEDS: FUROSEMIDE 20 MG/ 2ML VIAL IV ONE (06:00)
[2024-06-27 06:28] LABS: Absolute Basophils 0.1 K/uL (0-0.5); Absolute Lymphocytes (CBC) 1.6 K/uL (0.7-4.9); Absolute Monocytes 0.3 K/uL (0.1-1.3); Absolute Neutrophil 13.7 K/uL (1.8-8.0); Basophils % 0.4 % (0-1.3); Hematocrit 35.9 % (36.0-45.0); Hemoglobin 12.2 g/dL (12.0-15.0); MCHC 34.1 g/dL (32.0-36.0); MCV 87.9 fL (80-100); MPV 8.1 fL (7.6-11.3); Monocytes % 1.7 % (3.3-12.3); Neutrophils % 87.9 % (41.7-73.7); Nucleated Red Blood Cells % 0.1 % (0-0); Platelets 316 thou/uL (152-406); RBC Red Blood Cell Count 4.09 M/uL (3.86-4.86); Red Cell Distribution Width 14.4 % (12.1-15.2)
[2024-06-27 06:45] LABS: Albumin 2.2 g/dL (3.4-5.0); Albumin/Globulin Ratio 0.5 (1.1-1.8); Anion Gap 11.7 mEq/L (5.0-15.0); Bilirubin Total 0.3 mg/dL (0.2-1.0); Globulin 4.2 g/dL (2.3-3.5); Potassium 3.7 mEq/L (3.5-5.1); Protein, Total 6.4 g/dL (6.4-8.2)
[2024-06-27] MEDS: IPRATROPIUM BROM 0.5MG/2.5ML NEB SCH (07:21)
[2024-06-27] MEDS: ALBUTEROL 2.5 MG/3 ML NEB SOL NEB SCH (07:21)
[2024-06-27] MEDS: AZITHROMYCIN 250 MG TAB PO SCH (08:03)
[2024-06-27 09:37] LABS: Band Neutrophils 3 % (0-1); Blood Morphology Comment NOT SEEN (NOT SEEN); Differential Total Cells Count 100; Lymphocytes 14 % (15-42); Monocytes 1 % (0-10); Myelocytes 1 % (0-0); Platelet Estimate ADEQ; Segmented Neutrophils 81 % (40-80)
--- NOTE | 2024-06-27 11:27 | P.PN ---
Subjective Date of Service: 06/27/24 (Hospitalist) Chief Complaint: Shortness of breath bilateral interstitial pneumonia Patient is 63 years of age admitted with worsening shortness of breath that started on June 24 she went to [facility] emergency room was discharged getting sicker more short of breath on mild exertion and was admitted with acute interstitial bilateral pneumonia still has dyspnea on mild exertion elevated white count has a history of COPD uses albuterol on a as needed basis Review of Systems 10-point ROS is otherwise unremarkable General: Weakness Respiratory: Cough, Shortness of Breath Physical Examination - Vital Signs Temperature: 98.1 F Blood Pressure: 103/67 Pulse: 77 Respirations: 14 Pulse Ox (%): 93 - Physical Exam General: Alert, In no apparent distress, Oriented x3 Neck: Supple, JVD not distended Respiratory: Crackles/rales Cardiovascular: No edema, Regular rate/rhythm Gastrointestinal: Normal bowel sounds, Soft and benign - Studies Laboratory Data (last 24 hrs) 06/26/24 06/26/24 06/26/24 12:42 12:42 12:42 WBC 16.80 H Hgb 12.8 Hct 37.8 Plt Count 270 PT 16.2 H INR 1.45 Sodium 140 Potassium 3.9 BUN 17 Creatinine 0.90 Glucose 98 Magnesium 2.4 Total Bilirubin 0.7 AST 19 ALT 30 Alkaline Phosphatase 127 H Assessment And Plan - Current Problems (Diagnosis) (1) Pneumonia Current Visit: Yes Status: Acute Plan: Patient is 63 years of age with a history of well-controlled COPD admitted with acute interstitial interstitial bilateral pneumonia white count elevated continue with present antibiotics and steroids check for COVID labs chemistries reviewed patient is still hypoxic changed to IV levofloxacin to which has excellent atypical pneumonia coverage Qualifiers: Pneumonia type: due to unspecified organism
[2024-06-27] MEDS: Levofloxacin 750mg IV 750 MG/150 ML BAG IV SCH (12:18)
[2024-06-27] MEDS: ACETAMINOPHEN 325 MG TABLET PO PRN (14:39)
[2024-06-27] MEDS: DULERA 200/5 (MOMETASONE/FORMOTEROL) INHALER IH SCH (20:29)
[2024-06-28] MEDS: ALPRAZOLAM 0.25 MG TABLET PO ONE (00:44)
[2024-06-28] MEDS ORDERED: AZITHROMYCIN 250 MG TAB PO SCH (09:00)
--- NOTE | 2024-06-28 12:26 | RAD REPORT ---
EXAMINATION: ONE VIEW CHEST XR CLINICAL INDICATION: Female, 63 years old.,pneumonia TECHNIQUE: Frontal chest projection is submitted. Examination is limited by patient positioning and t echnique. COMPARISON: 06/26/[address] FINDINGS: Essentially stable patchy bilateral airspace opacities throughout the right lung and left upper lobe when compared to the prior CT, although there may be some improvement of aeration in the left upper lobe perihilar region in comparison to the prior radiograph. No pneumothorax or sizable effusion. Th e heart is normal in size. Mediastinal contours are unremarkable. IMPRESSION: Patchy bilateral airspace opacities as above, concerning for pneumonia.
--- NOTE | 2024-06-28 15:34 | P.PN ---
Subjective Date of Service: 06/28/24 Chief Complaint: Shortness of breath bilateral interstitial pneumonia Patient is doing better still dyspneic Review of Systems Unremarkable Respiratory: Shortness of Breath Physical Examination - Vital Signs Temperature: 97.6 F Blood Pressure: 127/66 Pulse: 80 Respirations: 16 Pulse Ox (%): 90 - Physical Exam General: Alert, In no apparent distress, Oriented x3 Neck: Supple Respiratory: Crackles/rales, Expiratory wheezes Cardiovascular: No edema, Regular rate/rhythm Assessment And Plan - Current Problems (Diagnosis) (1) Pneumonia Current Visit: Yes Status: Acute Plan: AW resp failure secondary to pneumonia improving. CXRY improvementLAbs reviewed. Cultures neg. WBC declining .Change to PO pred and levaquin/ Still hypoxic Hx of COPD Qualifiers: Pneumonia type: due to unspecified organism Laterality: bilateral
[2024-06-28 16:19] VITALS: BMI 26.6
[2024-06-28] MEDS: predniSONE 20 MG TAB PO SCH (20:28)
[2024-06-28] MEDS: clonazePAM 1 MG TAB PO PRN (20:28)
[2024-06-29 05:26] LABS: Influenza A Ag Negative; Influenza B Ag Negative; SARS-CoV-2 Antigen Rapid Res Negative (Negative)
[2024-06-29 05:59] LABS: Absolute Basophils 0.2 K/uL (0-0.5); Absolute Lymphocytes (CBC) 2.1 K/uL (0.7-4.9); Absolute Monocytes 0.5 K/uL (0.1-1.3); Absolute Neutrophil 17.1 K/uL (1.8-8.0); Basophils % 0.9 % (0-1.3); Eosinophils % 0.1 % (0-4.4); Hematocrit 37.1 % (36.0-45.0); Hemoglobin 12.7 g/dL (12.0-15.0); Lymphocytes % 10.6 % (15.3-44.8); MCH 30.2 pg (27.0-35.0); MCHC 34.2 g/dL (32.0-36.0); MCV 88.3 fL (80-100); MPV 7.9 fL (7.6-11.3); Monocytes % 2.6 % (3.3-12.3); Neutrophils % 85.8 % (41.7-73.7); Nucleated Red Blood Cells % 0.2 % (0-0); Platelets 303 thou/uL (152-406); RBC Red Blood Cell Count 4.21 M/uL (3.86-4.86); Red Cell Distribution Width 14.3 % (12.1-15.2)
[2024-06-29 06:21] LABS: ALT/SGPT 24 U/L (13-56); AST/SGOT < 10 U/L (15-37); Albumin 2.4 g/dL (3.4-5.0); Albumin/Globulin Ratio 0.6 (1.1-1.8); Alkaline Phosphatase 100 U/L (45-117); Anion Gap 12.1 mEq/L (5.0-15.0); BUN Blood Urea Nitrogen 23 mg/dL (7-18); Bicarbonate 22 mEq/L (21-32); Bilirubin Total 0.4 mg/dL (0.2-1.0); Globulin 3.9 g/dL (2.3-3.5); Glomerular Filtration Rate 81 ml/min (=/>90); Glucose Level 139 mg/dL (74-106); Magnesium 2.1 mg/dL (1.6-2.4); NT PRO-BNP 2558 pg/mL (<125); Potassium 4.1 mEq/L (3.5-5.1); Protein, Total 6.3 g/dL (6.4-8.2); Sodium Level 137 mEq/L (136-145)
--- NOTE | 2024-06-29 07:45 | RAD REPORT ---
EXAMINATION: ONE VIEW CHEST XR CLINICAL INDICATION: pneumonia TECHNIQUE: Frontal chest projection is submitted. Examination is limited by patient positioning and t echnique. COMPARISON: 06/28/2024 FINDINGS: Moderate bilateral pulmonary opacities, greater on the right in the right upper lobe, unchanged since prior study and likely pneumonia. The heart is normal in size. No displaced fractures identified. IMPRESSION: Stable chest since the preceding day study.
[2024-06-29] MEDS ORDERED: ALBUTEROL 2.5 MG/3 ML NEB SOL NEB PRN (08:08)
[2024-06-29] MEDS: levoFLOXacin 750 MG TAB PO SCH (09:41)
--- NOTE | 2024-06-29 10:57 | EKG ---
Test Date: 2024-06-26 Test Time: 12:03:05 Superintendent Local: RAFAEL MEASUREMENT RESULTS: Intervals: Rate: 98 WI: 136 QRSD: 86 QT: 390 QTc: 497 [place]: P: 73 WI: 136 QRS: 51 T: 44 INTERPRETIVE STATEMENTS: Sinus rhythm Prolonged QT Abnormal ECG Compared to ECG 11/15/2015 17:55:23 Prolonged QT interval now present Sinus arrhythmia no longer present Electronically Signed On 06-29-24 10:50:51 CDT by Moi Rubio
[2024-06-29] MEDS: FUROSEMIDE 20 MG/ 2ML VIAL IV ONE (11:57)
--- NOTE | 2024-06-29 11:58 | P.PN ---
Subjective Date of Service: 06/29/24 Chief Complaint: Shortness of breath bilateral interstitial pneumonia Patient is doing better still requiring oxygen ambulating Review of Systems Unremarkable Physical Examination - Vital Signs Temperature: 98.1 F Blood Pressure: 131/83 Pulse: 75 Respirations: 15 Pulse Ox (%): 91 - Physical Exam General: Alert, Oriented x3 Respiratory: Crackles/rales Cardiovascular: No edema, Regular rate/rhythm, Normal S1 S2 Assessment And Plan - Current Problems (Diagnosis) (1) Pneumonia Current Visit: Yes Status: Acute Plan: Patient is 63 years of age admitted with acute interstitial pneumonia while she was working in her attic and moving stuff patient is currently improving chest x-ray shows bilateral changes HIV screen has been ordered may have inhaled something the trigger of this response patient is requiring 2 and half liters of nasal cannula oxygen is now able to ambulate will give her a dose of Lasix echocardiogram white count is still elevated may be from steroids Qualifiers: Pneumonia type: due to unspecified organism Laterality: bilateral
[2024-06-29] MEDS: FUROSEMIDE 20 MG/ 2ML VIAL IV SCH (12:24)
--- NOTE | 2024-06-29 16:48 | P.PN ---
Date of Service: 06/29/24 Subjective Feeling well no new complaints likely dc in the AM ROS 10 point ROS as noted above, otherwise negative Physical Exam General: AAO x2, NAD HEENT: Normocephalic Respiratory: expiratory wheezes, on 2LNC Cardiovascular: No edema Gastrointestinal: Normal bowel sounds Musculoskeletal: No clubbing Integumentary: No rashes Neurological: Normal gait, Normal speech Lymphatics: No axilla or inguinal lymphadenopathy Vitals Reviewed Problem list Acute hypoxic respiratory failure secondary to multifocal pneumonia complicated by COPD exacerbation Leukocytosis Hypertension ADHD Depression Assessment and Plan Acute hypoxic respiratory failure secondary to multifocal pneumonia complicated by COPD exacerbation Leukocytosis -Oxygen protocol in place, wean O2 as tolerated - Lasix - Follow blood and sputum culture, NGTD Hypertension ADHD Depression -Continue home medications as appropriate DVT ppx Lovenox Code status LOS DC in the AM Time Spent Managing Pts Care (In Minutes): 35
[2024-06-29 23:03] LABS: Urine Bilirubin NEGATIVE (Negative); Urine Blood Negative (Negative); Urine Clarity Clear (Clear); Urine Color Colorless (Yellow); Urine Glucose NEGATIVE (Negative); Urine Ketones NEGATIVE (Negative); Urine Microscopic Reflex YN NO UMIC; Urine Nitrite NEGATIVE (Negative); Urine Protein NEGATIVE (Negative); Urine Urobilinogen Normal (Normal); Urine pH 6.5 (5.0-7.0)
[2024-06-30 09:06] VITALS: O2SAT 90
--- NOTE | 2024-06-30 09:21 | P.DS ---
Admission Date: 06/26/24 Discharge Date: 06/30/24 Disposition: ROUTINE DISCHARGE Discharge Condition: GOOD Reason for Admission: Shortness of breath bilateral interstitial pneumonia Brief History of Present Illness: Diagnosis Acute hypoxic respiratory failure secondary to multifocal pneumonia complicated by COPD exacerbation Leukocytosis Multifocal pneumonia COPD exacerbation Leukocytosis Elevated BNP Hypertension Depression ADHD HPI 06/26/24 63-year-old female with a past medical history of COPD, hypertension, ADHD, depression presenting with shortness of breath for the last week. She was seen on June 20 at an outside emergency room. She was diagnosed with pneumonia at the time and discharged on antibiotics as well as pain relievers and an inhaler. She is now presenting with worsening symptoms and increasing shortness of breath. She states she was getting ready to move out of her apartment and all the dust and debris worsened her breathing. She was unable to work anymore. She denies fevers and chills. Associated symptoms include chest pain. She rates this as a 10 out of 10. Hospital Course: Lilian was admitted and treated for the following diagnosis Acute hypoxic respiratory failure secondary to multifocal pneumonia complicated by COPD exacerbation Leukocytosis Multifocal pneumonia COPD exacerbation Leukocytosis Elevated BNP Hypertension Depression ADHD Tolerated breathing treatments, steroids, start cefepime and azithromycin Dr. Holly evaluated and clear for discharge with steroids and levaquin 1.5 L NC Blood and sputum cultures NGTD Oxygen protocol in place, wean O2 as tolerated tolerated Lasix Continued home medications as appropriate On 06/30/24, Lilian was seen on morning round and deemed hemodynamically. Dr. Holly has evaluated and cleared for discharge with oxygen supplementation, Dulera, Levaquin, and prednisone. Follow up with Dr. Holly and PCP. Physical Exam General: oriented x2, NAD Respiratory: expiratory wheezes, on 1.5 LNC Cardiovascular: No edema, RRR, S1 S2 present Gastrointestinal: Normal bowel sounds, non distended Musculoskeletal: No clubbing Integumentary: No rashes Neurological: Normal gait, Normal speech Vital Signs/Physical Exam: Temp Pulse Resp BP Pulse Ox 98.6 F 85 18 103/65 90 L 06/30/24 08:00 06/30/24 09:00 06/30/24 08:00 06/30/24 09:00 06/30/24 08:00 Laboratory Data at Discharge: WBC 20.00 thou/uL (4.3-10.9) H 06/29/24 05:50 Hgb 12.7 g/dL (12.0-15.0) 06/29/24 05:50 Hct 37.1 % (36.0-45.0) 06/29/24 05:50 Plt Count 303 thou/uL (152-406) 06/29/24 05:50 PT 16.2 SECONDS (10-13.0) H 06/26/24 12:42 INR 1.45 06/26/24 12:42 Sodium 137 mEq/L (136-145) 06/29/24 05:50 Potassium 4.1 mEq/L (3.5-5.1) 06/29/24 05:50 BUN 23 mg/dL (7-18) H 06/29/24 05:50 Creatinine 0.81 mg/dL (0.55-1.02) 06/29/24 05:50 Glucose 139 mg/dL (74-106) H 06/29/24 05:50 Magnesium 2.1 mg/dL (1.6-2.4) 06/29/24 05:50 Total Bilirubin 0.4 mg/dL (0.2-1.0) 06/29/24 05:50 AST < 10 U/L (15-37) L 06/29/24 05:50 ALT 24 U/L (13-56) 06/29/24 05:50 Alkaline Phosphatase 100 U/L (45-117) 06/29/24 05:50 Home Medications: Pantoprazole [Protonix Tab*] 1 tab PO BEDTIME 06/26/24 Quetiapine Fumarate [Seroquel] 100 mg PO BEDTIME 06/26/24 Mometasone/Formoterol [Dulera 200 Mcg/5 Mcg Inhaler] 2 puff IH BID 30 Days #1 inhaler 06/30/24 levoFLOXacin [Levaquin*] 750 mg PO DAILY 7 Days #7 tab 06/30/24 predniSONE [Prednisone*] 20 mg PO DAILY 10 Days #10 tab 06/30/24 New Medications: Mometasone/Formoterol [Dulera 200 Mcg/5 Mcg Inhaler] 2 puff IH BID 30 Days #1 inhaler levoFLOXacin [Levaquin*] 750 mg PO DAILY 7 Days #7 tab predniSONE [Prednisone*] 20 mg PO DAILY 10 Days #10 tab Physician Discharge Instructions: 1. Please call and schedule a follow-up appointment with your PCP in 3-5 days - Please follow-up with your PCP for medication refills/adjustments 2. Please call and schedule a follow-up appointment with Dr. Holly in one week -He will refill Dulera 3. Continue low sodium diet 4. activity restrictions fall precautions 5. Return to the ED if symptoms worsen New medications Dulera 2 puffs twice daily levaquin 750 mg daily x 7 days prednisone 20 mg daily x 10 days Diet: Low sodium Activity: Ad oneal Followup: Sergio Holly MD [ACTIVE - CAN ADMIT] - 1 Week NONE,NONE [Primary Care Provider] -
--- NOTE | 2024-06-30 12:25 | ECHO ---
HEIGHT: 5 ft 7 in WEIGHT: 170 lb 0 oz DATE OF STUDY: 06/30/[address]: Sergio Holly MD 2-DIMENSIONAL: YES M.MODE: YES DOPPLER: YES COLOR FLOW: YES TDS: PORTABLE: YES DEFINITY: BUBBLE STUDY: DIAGNOSIS: INTERSTITAL PNEUMONIA, POSSIBLE CONGESTIVE HEART FAILURE CARDIAC HISTORY: CATHERIZATION: NO SURGERY: NO PROSTHETIC VALVE: NO PACEMAKER: NO MEASUREMENTS (cm) DIASTOLIC (NORMALS) SYSTOLIC (NORMALS) IVSd 1.1 (0.6-1.2) LA Diam 2.2 (1.9-4.0) LVEF 60-65% LVIDd 2.4 (3.5-5.7) LVIDs 1.7 (2.0-3.5) %FS 29% LVPWd 1.2 (0.6-1.2) Ao Diam 2.2 (2.0-3.7) 2 DIMENSIONAL ASSESSMENT: RIGHT ATRIUM: NORMAL LEFT ATRIUM: NORMAL RIGHT VENTRICLE: NORMAL LEFT VENTRICLE: NORMAL TRICUSPID VALVE: TRACE TRICUSPID REGURGITATION MITRAL VALVE: NORMAL PULMONIC VALVE: NORMAL AORTIC VALVE: NORMAL PERICARDIAL EFFUSION: NONE AORTIC ROOT: NORMAL LEFT VENTRICULAR WALL MOTION: NORMAL DOPPLER/COLOR FLOW: GRADE I DIASTOLIC DYSFUNCTION COMMENTS: 1. NORMAL LEFT VENTRICULAR SYSTOLIC FUNCTION, EJECTION FRACTION 60-65%, NORMAL WALL MOTION 2. GRADE I DIASTOLIC DYSFUNCTION TECHNOLOGIST: GREGOR SORTO
[2024-06-30 16:41] VITALS: BP 109/74; TEMP 97.8
== END 2024-06-30 17:38 | disposition home or self-care (01) | DRG 193 ==
LOC: ER 11:44 → ERHOLD 15:17 → 4TH 20:39
PROVIDERS: ADMIT Family Medicine; ATTEND Internal Medicine
DX: J18.9 Pneumonia, unspecified organism (principal); J96.01 Acute respiratory failure with hypoxia; J44.0 Chronic obstructive pulmonary disease with (acute) lower respiratory infection; I10 Essential (primary) hypertension; F90.9 Attention-deficit hyperactivity disorder, unspecified type; F32.A Depression, unspecified; Z11.52 Encounter for screening for COVID-19; Z79.52 Long term (current) use of systemic steroids; Z79.899 Other long term (current) drug therapy
CPT/HCPCS: 36415; 71045; 71275; 80048; 80053; 80076; 81003; 82947; 83605; 83735; 83880; 84484; 85025; 85379; 85610; 87040; 87389; 87428; 93005; 93306; 94640; 94760; 96365; 96368; 96375; 99285; J0692; J0696; J1650; J1938; J2919; J3535; J7030; J7050; J7512; J7613; J7644; Q9967